=== PATIENT | male | born 1975 | race Caucasian/White ===

== ENCOUNTER 2019-09-08 21:21 | Emergency (ER) | payer SELFPAY ==
[~2019-09-08] VITALS: Ht 177.8 cm; Wt 81.6 kg
[2019-09-08 22:45] LABS: Basophils # (auto) 0 10 ^3/uL (0-0.2); Basophils % (auto) 0.6 % (0.0-2.0); Eosinophils # (auto) 0.2 10 ^3/uL (0-0.8); Eosinophils % (auto) 3.6 % (0.0-7.0); Hematocrit 38.2 % (41.0-53.0); Hemoglobin 12.9 g/dL (13.5-17.5); Lymphocytes # (auto) 2.5 10 ^3/uL (0.4-5.4); Lymphocytes % (auto) 42.6 % (10.0-50.0); Mean Corpuscular Hemoglobin 32.6 pg (28.0-32.0); Mean Corpuscular Hgb Conc. 33.7 g/dL (32.0-36.0); Mean Corpuscular Volume 96.9 fL (80.0-100.0); Monocytes # (auto) 0.7 10 ^3/uL (0-1.3); Neutrophils # (auto) 2.4 10 ^3/uL (1.6-8.6); Neutrophils % (auto) 41.2 % (37.0-80.0); Nucleated Red Blood Cells % 0.1 %; Platelet Count (auto) 226 10^3/uL (140-450); Red Blood Cells 3.94 10^6/uL (4.5-5.90); Red Cell Distribution Width 12.8 % (11.8-14.3); White Blood Cell 5.9 10^3/uL (4.4-10.8)
[2019-09-08 23:08] LABS: Albumin 2.9 g/dL (3.4-5.0); Potassium 3.8 mmol/L (3.5-5.1)
[2019-09-08 23:11] LABS: BUN/Creatinine Ratio 17.7; Bilirubin, Total 0.2 mg/dL (0.2-1.0); Total Protein 6.2 g/dL (6.4-8.2)
[2019-09-09] MEDS ORDERED: NALOXONE HCL 0.4 MG/ML VIAL IV ONE (01:15)
[2019-09-09 02:00] VITALS: BP 121/70
== END 2019-09-09 03:50 | disposition left against medical advice (07) ==
LOC: EDSEX 21:21 → EDBD 21:21 → ER 21:23
DX: R55 Syncope and collapse (principal); F15.10 Other stimulant abuse, uncomplicated; F17.200 Nicotine dependence, unspecified, uncomplicated
CPT/HCPCS: 36415; 36600; 71045; 80053; 80320; 82728; 82805; 83605; 84484; 85025; 87040; 87070; 87804; 87880; 96374; 99285; C9803; J2310; U0003

== ENCOUNTER 2024-03-14 12:44 | Inpatient (IN) | payer MEDICAID, OTHER ==
[~2024-03-14] VITALS: Ht 167.6 cm; Wt 65.0 kg
--- NOTE | 2024-03-14 13:07 | ED.PDOC ---
SOB-HPI HPI Comments 48 year old male RODDY presents to the ED with chief complaint of SOB. Patient reports that he has been experiencing SOB with associated cough for the past 3 weeks. Patient relays that he has a history of asthma and has used an inhaler with no relief noted. Patient denies any chest pain, fever, chills, dizziness, N/V, or hemoptysis. Chief Complaint: Shortness of Breath Time Seen by MD: 13:03 Primary Care Provider: UNKNOWN Reviewed notes: Nurses Notes, Medications, Allergies Information Source: Patient Mode of Arrival: EMS Severity: Moderate Timing: Weeks Duration: Since onset Context: At Rest PE Risk Factors: None History of: Asthma Prehospital treatment: Breathing Tx, Oxygen Modifying Factors: Nothing Associated Signs and Symptoms: Cough If cough with SOB: Productive, Yellow Past Medical History PAST MEDICAL HISTORY: Asthma Surgical History: Denies all surgeries Family History Family History: Reviewed,noncontributory to illness Social History Smoker: Greater Than 1 Pack/Day Alcohol: Denies ETOH Use Drugs: Methamphetamine Lives In: Home Constitutional: denies: chills, diaphoresis, fatigue, fever, malaise, sweats, weakness, others EENTM: denies: blurred vision, double vision, ear bleeding, ear discharge, ear drainage, ear pain, ear ringing, eye pain, eye redness, hearing loss, mouth pain, mouth swelling, nasal discharge, nose bleeding, nose congestion, nose pain, photophobia, tearing, throat pain, throat swelling, voice changes, others Respiratory: reports: cough, shortness of breath; denies: hemoptysis, orthopnea, SOB at rest, SOB with excertion, stridor, wheezing, others Cardiovascular: denies: chest pain, dizzy spells, diaphoresis, Dyspnea on exertion, edema, irregular heart beat, left arm pain, lightheadedness, palpitations, PND, syncope, others Gastrointestinal: denies: abdomen distended, abdominal pain, blood streaked bowels, constipated, diarrhea, dysphagia, difficulty swallowing, hematemesis, melena, nausea, poor appetite, poor fluid intake, rectal bleeding, rectal pain, vomiting, others Genitourinary: denies: burning, dysuria, flank pain, frequency, hematuria, incontinence, penile discharge, penile sore, pain, testicle pain, testicle swelling, urgency, others Neurological: denies: dizziness, fainting, headache, left sided numbness, left sided weakness, numbness, paresthesia, pre-existing deficit, right sided numbness, right sided weakness, seizure, speech problems, tingling, tremors, weakness, others Musculoskeletal: denies: back pain, gout, joint pain, joint swelling, muscle pain, muscle stiffness, neck pain, others Integumetry: denies: bruises, change in color, change in hair/nails, dryness, laceration, lesions, lumps, rash, wounds, others Allergic/Immunocompromised: denies: Difficulty Healing, Frequent Infections, Hives, Itching, others Hematologic/Lymphatic: denies: anemia, blood clots, easy bleeding, easy bruising, swollen glands, others Endocrine: denies: excessive hunger, excessive sweating, excessive thirst, excessive urination, flushing, intolerance to cold, intolerance to heat, unexplained weight gain, unexplained weight loss, others Psychiatric: denies: anxiety, bipolar disorder, depression, hopeless, panic disorder, schizophrenia, sleepless, suicidal, others All Other Systems: Reviewed and Negative Physical Exam General Appearance: Moderate Distress, Normal HEENT: Normal ENT Inspection, PERRL/EOMI Neck: Full Range of Motion, Non-Tender, Normal, Normal Inspection Respiratory: Accessory Muscle Use, Chest Non-Tender, Respiratory Distress, Wheezing Cardiovascular: No Edema, No JVD, No Murmur, No Gallop, Normal Peripheral Pulses, Regular Rate/Rhythm Breast Exam: Deferred Gastrointestinal: No Organomegaly, Non Tender, No Pulsatile Mass, Normal Bowel Sounds, Soft Genitalia: Deferred Pelvic: Deferred Rectal: Deferred Extremities: No calf tenderness, Normal capillary refill, Normal inspection, Normal range of motion, Non-tender, No pedal edema Musculoskeletal : Apperance: Normal Neurologic: Alert, internal audit consultant II-XII nml as Tested, No Motor Deficits, Normal Affect, Normal Mood, No Sensory Deficits Cerebellar Function: NOT DONE Reflexes: NOT DONE Skin: Dry, Normal Color, Warm Peripheral Pulses: 3+ Radial (R), 3+ Radial (L) Lymphatic: No Adenopathy Was a procedure done? Was a procedure done?: No Differential Dx Differential Diagnosis: Anxiety, Asthma, Bronchitis X-Ray, Labs, Meds, VS Vital Signs Date Time Temp Pulse Resp B/P (MAP) Pulse Ox O2 Delivery O2 Flow Rate FiO2 1/15/25 14:13 99 16 99 Nasal Cannula* 1 03/14/24 14:11 99 16 99 Room Air 03/14/24 14:11 98.3 99 16 101/80 (87) 99 98.3 03/14/24 13:47 100 03/14/24 13:46 18 99 Nasal Cannula* 1 03/14/24 13:46 99 Nasal Cannula* 03 2303/14/24 12:55 97.5 100 14 102/67 (79) 100 Lab Test 03/14/24 13:37 Range/Units White Blood Count 9.8 4.4-10.8 10^3/uL Red Blood Count 4.36 L 4.5-5.90 10^6/uL Hemoglobin 13.8 13.5-17.5 g/dL Hematocrit 42.5 41.0-53.0 % Mean Corpuscular Volume 97.5 80.0-100.0 fL Mean Corpuscular Hemoglobin 31.7 28.0-32.0 pg Mean Corpuscular Hemoglobin Concent 32.5 32.0-36.0 g/dL Red Cell Distribution Width 14.6 H 11.8-14.3 % Platelet Count 251 140-450 10^3/uL Mean Platelet Volume 7.9 6.9-10.8 fL Neutrophils (%) (Auto) 69.2 37.0-80.0 % Lymphocytes (%) (Auto) 16.4 10.0-50.0 % Monocytes (%) (Auto) 12.6 H 0.0-12.0 % Eosinophils (%) (Auto) 1.4 0.0-7.0 % Basophils (%) (Auto) 0.4 0.0-2.0 % Neutrophils # (Auto) 6.8 1.6-8.6 10 ^3/uL Lymphocytes # (Auto) 1.6 0.4-5.4 10 ^3/uL Monocytes # (Auto) 1.2 0-1.3 10 ^3/uL Eosinophils # (Auto) 0.1 0-0.8 10 ^3/uL Basophils # (Auto) 0 0-0.2 10 ^3/uL Nucleated Red Blood Cells 0.1 % Sodium Level 141 136-145 mmol/L Potassium Level 4.9 3.5-5.1 mmol/L Chloride Level 107 98-107 mmol/L Carbon Dioxide Level 30 20-31 mmol/L Anion Gap 4 L 5-15 Blood Urea Nitrogen 32 H 9-23 mg/dL Creatinine 1.46 H 0.700-1.30 mg/dL Glomerular Filtration Rate Calc 59 >90 mL/min BUN/Creatinine Ratio 21.9 H 10.0-20.0 Serum Glucose 87 74-106 mg/dL Calcium Level 9.5 8.7-10.4 mg/dL Troponin I High Sensitivity 59 *H </=54 ng/L B-Type Natriuretic Peptide 1345.55 0-100 pg/mL Current Medications Medications (Trade) Dose Ordered Sig/Wilder Route Start Time Stop Time Status Last Admin Methylprednisolone Sodium Succinate (Solu Medrol) 125 mg ONCE ONCE IV 03/14/24 13:15 03/14/24 13:16 DC 03/14/24 14:18 Albuterol (Ventolin Medneb) 5 mg ONCE ONCE NEB 03/14/24 13:15 03/14/24 13:16 DC 03/14/24 13:44 Ipratropium Barron (Atrovent Medneb) 0.5 mg ONCE ONCE NEB 03/14/24 13:15 03/14/24 13:16 DC 03/14/24 13:44 Patient alert. Complaining of shortness a breath. Vitals stable. Answering questions Was given breathing treatment. Was given steroid. Placed on oxygen. Unable to expand his lungs completely. Explained to the patient. Continue cardiac monitoring. Chest x-ray reviewed does not show any acute changes. BNP elevated. Was given Lasix pain Cardiac marker elevated. Was given Lovenox. Time of 1ST Reevaluation: 14:03 Reevaluation 1ST: Unchanged Patient Education/Counseling: Diagnosis, Treatment Family Education/Counseling: No Family Present Additional Information I reviewed the following notes from patient's past medical encounters: 09/08/19 f or Syncope The following tests were ordered, and results were reviewed by me: CXR Additional Information was gathered from interviewing the following independent historians: EMS I reviewed and agreed with the following test results read by other providers: CXR I discussed treatment and results with medical personnel. Departure 1 Departure Time of Disposition: 14:19 Impression: Primary Impression: Acute respiratory failure Qualified Codes: J96.01 - Acute respiratory failure with hypoxia Additional Impressions: Asthma exacerbation Qualified Codes: J45.41 - Moderate persistent asthma with (acute) exacerbation CHF (congestive heart failure) Qualified Codes: I50.43 - Acute on chronic combined systolic (congestive) and diastolic (congestive) heart failure Demand ischemia Disposition: ADMITTED INPATIENT Admit to: Med Surg Condition: Guarded Critical Care Note Critical Care Time?: Yes (45 min-critical care time only) Stability Stability form required: No Heart Score Heart Score: Heart Score Response (Comments) Value History N/A 0 EKG N/A 0 Age N/A 0 Risk Factors N/A 0 Troponin N/A 0 Total 0 I personally scribed for DEON COLEMAN MD ([email or web address]) on 03/14/24 at 13:06. Electronically submitted by Donald Moore ([email or web address]). DEON COLEMAN MD Mar 14, 2024 13:06
--- NOTE | 2024-03-14 13:24 | DVH ---
CHEST RADIOGRAPH Indication: sob Technique: Single frontal view of the chest was obtained Comparison: CHEST XRAY 1 VIEW on DOS: 09/09/19 FINDINGS: Lines and Tubes: None Lungs: No focal consolidation. Pleura: No effusion. No pneumothorax. Cardiomediastinal contours: Unremarkable Bones: No acute osseous abnormality. IMPRESSION: No acute cardiopulmonary disease.
[2024-03-14] MEDS: ALBUTEROL SULF 2.5 MG/0.5ML(0.5%) NEB SOLN NEB ONE (13:44)
[2024-03-14] MEDS: IPRATROPIUM BROM 0.5 MG/2.5ML INH SOL NEB ONE (13:44)
[2024-03-14 14:02] LABS: Basophils # (auto) 0 10 ^3/uL (0-0.2); Basophils % (auto) 0.4 % (0.0-2.0); Eosinophils # (auto) 0.1 10 ^3/uL (0-0.8); Eosinophils % (auto) 1.4 % (0.0-7.0); Hematocrit 42.5 % (41.0-53.0); Hemoglobin 13.8 g/dL (13.5-17.5); Lymphocytes # (auto) 1.6 10 ^3/uL (0.4-5.4); Lymphocytes % (auto) 16.4 % (10.0-50.0); Mean Corpuscular Hemoglobin 31.7 pg (28.0-32.0); Mean Corpuscular Hgb Conc. 32.5 g/dL (32.0-36.0); Mean Corpuscular Volume 97.5 fL (80.0-100.0); Monocytes # (auto) 1.2 10 ^3/uL (0-1.3); Monocytes % (auto) 12.6 % (0.0-12.0); Neutrophils # (auto) 6.8 10 ^3/uL (1.6-8.6); Neutrophils % (auto) 69.2 % (37.0-80.0); Nucleated Red Blood Cells % 0.1 %; Platelet Count (auto) 251 10^3/uL (140-450); Red Blood Cells 4.36 10^6/uL (4.5-5.90); Red Cell Distribution Width 14.6 % (11.8-14.3); White Blood Cell 9.8 10^3/uL (4.4-10.8)
[2024-03-14 14:11] LABS: Chloride 107 mmol/L (98-107); Potassium 4.9 mmol/L (3.5-5.1); Sodium 141 mmol/L (136-145)
[2024-03-14 14:12] LABS: Anion Gap 4 (5-15); Carbon Dioxide 30 mmol/L (20-31)
[2024-03-14 14:13] VITALS: PULSE 99; RESP 16; O2SAT 99
[2024-03-14 14:13] LABS: Calcium 9.5 mg/dL (8.7-10.4)
[2024-03-14 14:18] LABS: BUN/Creatinine Ratio 21.9 (10.0-20.0); Blood Urea Nitrogen 32 mg/dL (9-23); Glucose 87 mg/dL (74-106)
[2024-03-14] MEDS: methylPREDNISolone SOD SUCC 125 MG/2 ML VL IV ONE (14:18)
--- NOTE | 2024-03-14 14:31 | ECG ---
[facility] Test Date: 2024-03-14 Test Time: 13:47:44 Pat Name: LAQUITA CARROLL Department: er Room: 0297 Gender: M [employer] Install[employer]: darrell : 1975 Requested By: DEON COLEMAN Order Number: [id number] Reading MD: Mynor Mcmahon Measurements Intervals [place] Rate: 100 P: 72 AL: 151 QRS: 73 QRSD: 103 T: 252 QT: 372 QTc: 480 Interpretive Statements Sinus tachycardia Probable left atrial enlargement LVH with secondary repolarization abnormality Anterior ST elevation, probably due to LVH Borderline prolonged QT interval Electronically Signed On 03-18-2024 15:36:39 PST by Mynor Mcmahon Please click the below link to view image of tracing.
[2024-03-14] MEDS: ENOXAPARIN SOD 80 MG/0.8ML SYRINGE SC ONE (17:33)
[2024-03-14] MEDS: FUROSEMIDE 40 MG/4 ML VIAL IV ONE (17:33)
[2024-03-14] MEDS ORDERED: ONDANSETRON HCL 4 MG/2 ML VIAL IV PRN (18:15)
[2024-03-14] MEDS ORDERED: ACETAMINOPHEN 325 MG TAB PO PRN (18:15)
[2024-03-14] MEDS ORDERED: TEMAZEPAM 15 MG CAP PO PRN (18:15)
[2024-03-14 18:30] VITALS: O2SAT 97
[2024-03-14 19:20] VITALS: BP 103/73; PULSE 92; RESP 16; TEMP 98.3; O2SAT 98
[2024-03-14] MEDS: CARVEDILOL 3.125 MG TAB PO SCH (22:56)
[2024-03-14] MEDS: ATORVASTATIN 20 MG TAB PO SCH (22:57)
--- NOTE | 2024-03-14 23:15 | DVHHP2 ---
History of Present Illness Reason for Visit: Shortness of breath History of Present Illness 48-year-old male presents for evaluation of shortness for breath. Patient reports a three-week history of worsening shortness for breath with associated chest pressure. Denies abdominal or lower extremity swelling. States being severely short of breath with mild exertion. No other acute complaints reported. Past Medical History Asthma and congestive heart failure Past Surgical History Denies Family History Noncontributory Smoke: <1 pack per day ALCOHOL: none Drugs: Other (Methamphetamine) Review of Systems Review of Systems Review of systems are currently negative otherwise addressed in HPI. Allergies: Coded Allergies: NO KNOWN ALLERGIES (Unverified , 08/25/10) Medications Current Medications Medications Dose Ordered Sig/Wilder Route Start Time Stop Time Status Last Admin Dose Admin Carvedilol 3.125 mg Q12HR PO 03/14/24 22:00 Atorvastatin Calcium 10 mg HS PO 03/14/24 22:00 Aspirin 81 mg DAILY PO 03/15/24 10:00 Furosemide 40 mg DAILY PO 03/15/24 10:00 Albuterol 2.5 mg Q6HPRN PRN NEB 03/14/24 18:15 Temazepam 15 mg QHSP PRN PO 03/14/24 18:15 Ondansetron HCl 4 mg Q4HP PRN IV 03/14/24 18:15 Acetaminophen 650 mg Q6HP PRN PO 03/14/24 18:15 Exam Vital Signs Vital Signs Date Time Temp Pulse Resp B/P (MAP) Pulse Ox O2 Delivery O2 Flow Rate FiO2 03/14/24 22:57 94 16 116/66 (83) 98 03/14/24 19:20 98.3 1.0 24 98.3 03/14/24 18:30 Room Air* Exam Gen: 48-year-old male in mild distress Skin: Warm, dry, normal color and texture, no rash. HEENT: Normocephalic atraumatic, mucous membranes moist and pink. Neck: Cervical and supraclavicular nodes normal without enlargement, trachea is midline, thyroid gland is normal without masses. Pulmonary: Clear to auscultation and percussion bilaterally. Cardiac: Regular rate and rhythm. No murmur Abdomen: Soft, nontender, nondistended, bowel sounds present all 4 quadrants, no guarding, no rigidity, no organomegaly. Extremities: No cyanosis, clubbing, no edema Neuro: Cranial nerves II through XII grossly intact, normal affect and speech, no focal motor deficits. Labs/Xrays ORDERING PHYSICIAN: DEON COLEMAN MD PROCEDURE(s): CXRP - CHEST PORTABLE REASON: sob ORDER NUMBER(s): [id number], ACCESSION NUMBER(s): [id number] CHEST RADIOGRAPH Indication: sob Technique: Single frontal view of the chest was obtained Comparison: CHEST XRAY 1 VIEW on DOS: 09/09/19 FINDINGS: Lines and Tubes: None Lungs: No focal consolidation. Pleura: No effusion. No pneumothorax. Cardiomediastinal contours: Unremarkable Bones: No acute osseous abnormality. IMPRESSION: No acute cardiopulmonary disease. Labs Test 03/14/24 20:56 03/14/24 13:37 Range/Units Troponin I High Sensitivity 36 </=54 ng/L White Blood Count 9.8 4.4-10.8 10^3/uL Red Blood Count 4.36 L 4.5-5.90 10^6/uL Hemoglobin 13.8 13.5-17.5 g/dL Hematocrit 42.5 41.0-53.0 % Mean Corpuscular Volume 97.5 80.0-100.0 fL Mean Corpuscular Hemoglobin 31.7 28.0-32.0 pg Mean Corpuscular Hemoglobin Concent 32.5 32.0-36.0 g/dL Red Cell Distribution Width 14.6 H 11.8-14.3 % Platelet Count 251 140-450 10^3/uL Mean Platelet Volume 7.9 6.9-10.8 fL Neutrophils (%) (Auto) 69.2 37.0-80.0 % Lymphocytes (%) (Auto) 16.4 10.0-50.0 % Monocytes (%) (Auto) 12.6 H 0.0-12.0 % Eosinophils (%) (Auto) 1.4 0.0-7.0 % Basophils (%) (Auto) 0.4 0.0-2.0 % Neutrophils # (Auto) 6.8 1.6-8.6 10 ^3/uL Lymphocytes # (Auto) 1.6 0.4-5.4 10 ^3/uL Monocytes # (Auto) 1.2 0-1.3 10 ^3/uL Eosinophils # (Auto) 0.1 0-0.8 10 ^3/uL Basophils # (Auto) 0 0-0.2 10 ^3/uL Nucleated Red Blood Cells 0.1 % Sodium Level 141 136-145 mmol/L Potassium Level 4.9 3.5-5.1 mmol/L Chloride Level 107 98-107 mmol/L Carbon Dioxide Level 30 20-31 mmol/L Anion Gap 4 L 5-15 Blood Urea Nitrogen 32 H 9-23 mg/dL Creatinine 1.46 H 0.700-1.30 mg/dL Glomerular Filtration Rate Calc 59 >90 mL/min BUN/Creatinine Ratio 21.9 H 10.0-20.0 Serum Glucose 87 74-106 mg/dL Calcium Level 9.5 8.7-10.4 mg/dL B-Type Natriuretic Peptide 1345.55 0-100 pg/mL Assessment/Plan Assessment/Plan Assessment Acute on chronic respiratory failure CHF exacerbation Asthma Elevated troponin, possible demand ischemia Plan Admit the patient to Med [facility] [place] to the hospitalist Echocardiogram pending Resume home medications Continue treatment per orders. Plan discussed with: Patient My Orders Orders - DILIA SMITH AGACNP Procedure Category Date Status Time Carvedilol Tablet PHA 03/14/24 In Process (Coreg Tablet) 22:00 Atorvastatin (Lipitor) PHA 03/14/24 In Process 22:00 Aspirin Tablet PHA 03/15/24 In Process 10:00 Furosemide Tablet PHA 03/15/24 In Process (Lasix Tablet) 10:00 * Cardiology Consult CONS 03/14/24 Transmitted 18:12 Albuterol Medneb PHA 03/14/24 In Process (Ventolin Medneb) 18:15 Basic Metabolic Panel LAB 03/15/24 Logged 04:00 Admit ADMIT 03/14/24 Transmitted 18:12 Temazepam (Restoril) PHA 03/14/24 In Process 18:15 Ondansetron Hcl PHA 03/14/24 In Process (Zofran) 18:15 Cardiac DIET 03/14/24 Transmitted Diet-2gna,Lofat,Lochol Dinner Echo 2d Mode Cardiac US 03/14/24 Logged DOP 18:12 Condition: Fair CALEB 03/14/24 In Process 18:12 Acetaminophen Tablet PHA 03/14/24 In Process (Tylenol Tablet) 18:15 Bedrest With Bathroom CALEB 03/14/24 In Process Privileg 18:12 Date of Service: Mar 14, 2024 Billing Provider: DILIA SMITH Common Visit Codes: [id number] INP/OBS CARE (HIGH) DILIA SMITH Mar 14, 2024 23:15
[2024-03-15] VITALS (12 sets, daily range): BP systolic 102–106; BP diastolic 66–76; PULSE 80–106; RESP 16–20; TEMP 97.5–97.9; O2SAT 95–100
[2024-03-15] MEDS: ALBUTEROL SULF 2.5 MG/0.5ML(0.5%) NEB SOLN NEB PRN (00:46)
[2024-03-15 06:37] LABS: Anion Gap 9 (5-15); Carbon Dioxide 24 mmol/L (20-31); Chloride 106 mmol/L (98-107); Potassium 4.3 mmol/L (3.5-5.1); Sodium 139 mmol/L (136-145)
[2024-03-15 06:38] LABS: Calcium 9.5 mg/dL (8.7-10.4)
[2024-03-15 06:43] LABS: BUN/Creatinine Ratio 22.8 (10.0-20.0)
[2024-03-15 06:44] LABS: Blood Urea Nitrogen 31 mg/dL (9-23); Glucose 136 mg/dL (74-106)
[2024-03-15] MEDS: ASPirin 81 mg TAB PO SCH (09:21)
[2024-03-15] MEDS: FUROSEMIDE 40 MG TAB PO SCH (09:21)
[2024-03-15 12:23] LABS: Rapid Influenza A Negative (Negative); Rapid Influenza B Negative (Negative)
[2024-03-15 12:24] LABS: COVID19 ANTIGEN SOFIA FIA NEGATIVE (NEGATIVE)
[2024-03-15 13:07] LABS: Amphetamine Screen, Urine Pos (NEGATIVE); Barbiturate Scree,Urine Neg (NEGATIVE); Benzodiazephine Screen, Urine Neg (NEGATIVE); Cocaine Screen, Urine Neg (NEGATIVE); Opiate Scree,Urine Neg (NEGATIVE)
[2024-03-15 13:08] LABS: Cannabinoid Screen, Urine Neg (NEGATIVE); Phencyclidine Screen, Urine Neg (NEGATIVE)
[2024-03-15 14:02] LABS: Basophils # (auto) 0 10 ^3/uL (0-0.2); Basophils % (auto) 0.2 % (0.0-2.0); Eosinophils # (auto) 0 10 ^3/uL (0-0.8); Eosinophils % (auto) 0.1 % (0.0-7.0); Hematocrit 40.1 % (41.0-53.0); Lymphocytes # (auto) 1.8 10 ^3/uL (0.4-5.4); Mean Corpuscular Hemoglobin 31.6 pg (28.0-32.0); Mean Corpuscular Hgb Conc. 32.6 g/dL (32.0-36.0); Mean Corpuscular Volume 97.1 fL (80.0-100.0); Monocytes % (auto) 4.6 % (0.0-12.0); Neutrophils # (auto) 19.7 10 ^3/uL (1.6-8.6); Neutrophils % (auto) 87.1 % (37.0-80.0); Platelet Count (auto) 250 10^3/uL (140-450); Red Blood Cells 4.13 10^6/uL (4.5-5.90); White Blood Cell 22.6 10^3/uL (4.4-10.8)
--- NOTE | 2024-03-15 14:07 | DVHINCON2 ---
Date Seen: Mar 15, 2024 Referring Physician GIOVANI Montgomery Reason for Consultation CHF History of Present Illness This is a 48-year-old man who presented to the emergency room with a chief complaint of shortness of breath for one week. The patient complains of progressive shortness of breath associated with PND, MIRANDA, and bilateral lower extremity edema. Denies chest pain. He underwent a 12 lead electrocardiogram revealing a sinus rhythm with global T-wave inversion and suggestive of left ventricular hypertrophy. Troponin level peaked at 59 ng/L. Per patient, he was diagnosed with congestive heart failure approximately two years ago at [facility] undergoing a transthoracic echocardiogram revealing an EF of approximately 20% and undergoing a cardiac catheterization without catheter based intervention given no coronary artery disease. Somehow the patient has failed to continue to follow up with Cardiology. States he is on bisoprolol and Lasix therapy at home. Significant medical history includes congestive heart failure, hypertension, asthma, tobacco and methamphetamine use. Past Medical History Past medical history reviewed. No other significant than mentioned above. Past Surgical History Past Surgical history reviewed. No other significant than mentioned above. Family History: Asthma G8 MOTHER Cerebrovascular accident (CVA) G8 FATHER FH: heart attack G8 FATHER Family History Family history reviewed. Social History Denies the use of alcohol. Admits to tobacco and methamphetamine use. Smokes one pack of cigarettes per day. Allergies: Coded Allergies: NO KNOWN ALLERGIES (Unverified , 08/25/10) Home Meds Home medications reviewed. Current Medications Current Medications Medications (Trade) Dose Ordered Sig/Wilder Route PRN Reason Start Time Stop Time Status Last Admin Carvedilol (Coreg Tablet) 3.125 mg Q12HR PO 03/14/24 22:00 03/15/24 09:22 Atorvastatin Calcium (Lipitor) 10 mg HS PO 03/14/24 22:00 Aspirin 81 mg DAILY PO 03/15/24 10:00 03/15/24 09:21 Furosemide (Lasix Tablet) 40 mg DAILY PO 03/15/24 10:00 03/15/24 09:21 Albuterol (Ventolin Medneb) 2.5 mg Q6HPRN PRN NEB SHORTNESS OF BREATH 03/14/24 18:15 03/15/24 09:20 Temazepam (Restoril) 15 mg QHSP PRN PO FOR INSOMNIA 03/14/24 18:15 Ondansetron HCl (Zofran) 4 mg Q4HP PRN IV NAUSEA / VOMITING 03/14/24 18:15 Acetaminophen (Tylenol Tablet) 650 mg Q6HP PRN PO PAIN SCALE 1-3 OR TEMP>100.4 03/14/24 18:15 Azithromycin 250 ml @ 125 mls/hr DAILY IV 03/16/24 10:00 Ceftriaxone Sodium 50 ml @ 100 mls/hr DAILY@09 IV 03/16/24 09:00 Review of Systems Constitutional: No symptom reported Ears, Nose, & Throat: No symptom reported Eyes: No symptom reported Neurological: No symptoms reported Pulmonary/Respiratory: SOB, MIRANDA, PND Cardiovascular: BLE edema Gastrointestinal: No symptom reported Genitourinary: No symptom reported Musculoskeletal: No symptom reported Skin: No symptom reported Psychiatric: No symptom reported Endocrine: No symptom reported Hemotologic/Lymphatic: No symptom reported Vital Signs Vital Signs Date Time Temp Pulse Resp B/P (MAP) Pulse Ox O2 Delivery O2 Flow Rate FiO2 03/15/24 10:22 82 111/74 03/15/24 09:26 18 98 03/15/24 09:20 Room Air 0.0 03/15/24 09:20 21 03/15/24 08:18 97.5 97.5 Physical Exam General Appearance: Cooperative. Well developed. Well nourished. In no acute distress Head Exam: Normal inspection Neck Exam: Normal inspection. Non-tender. Normal alignment Pulmonary/Respiratory: Chest non-tender. Crackles to bilateral breath sounds Cardiovascular/Chest: Regular rate and rhythm. S1, S2. Global T wave inversion. LVH. No murmurs. +JVD + JVD. Peripheral Pulses: 2+ Radial (R). 2+ Radial (L). 2+ Pedal (R). 2+ Pedal (L) Abdominal Exam: Normal bowel sounds. Soft. Nontender. No hepatospenomegaly. No masses Ankle Exam: Positive ankle edema, 2+ Lower extremities: Positive lower extremity edema, 2+ Neuro/Mental Status: A&O x4. Coherent Thoughts/Psych: Normal thought pattern. Appropriate mood and affect. Good judgement and insight Appearance: In no acute distress Skin Exam: Normal inspection. Normal color. Warm. Dry Labs/Diagnostic Data Labs Test 03/15/24 12:23 03/15/24 10:33 03/15/24 04:49 03/14/24 20:56 Range/Units Urine Opiates Screen Neg NEGATIVE Urine Fentanyl Screen Neg NEGATIVE Urine Barbiturates Screen Neg NEGATIVE Urine Phencyclidine Screen Neg NEGATIVE Urine Amphetamines Screen Pos NEGATIVE Urine Benzodiazepines Screen Neg NEGATIVE Urine Cocaine Screen Neg NEGATIVE Urine Cannabinoids Screen Neg NEGATIVE Influenza Type A Antigen Negative Negative Influenza Type B Antigen Negative Negative SARS-CoV-2 Antigen (Rapid) Negative NEGATIVE Sodium Level 139 136-145 mmol/L Potassium Level 4.3 3.5-5.1 mmol/L Chloride Level 106 98-107 mmol/L Carbon Dioxide Level 24 20-31 mmol/L Anion Gap 9 5-15 Blood Urea Nitrogen 31 H 9-23 mg/dL Creatinine 1.36 H 0.700-1.30 mg/dL Glomerular Filtration Rate Calc 65 >90 mL/min BUN/Creatinine Ratio 22.8 H 10.0-20.0 Serum Glucose 136 H 74-106 mg/dL Hemoglobin A1c 5.9 H <5.7 % A1C Calcium Level 9.5 8.7-10.4 mg/dL Troponin I High Sensitivity 36 </=54 ng/L Test 03/14/24 13:37 Range/Units White Blood Count 9.8 4.4-10.8 10^3/uL Red Blood Count 4.36 L 4.5-5.90 10^6/uL Hemoglobin 13.8 13.5-17.5 g/dL Hematocrit 42.5 41.0-53.0 % Mean Corpuscular Volume 97.5 80.0-100.0 fL Mean Corpuscular Hemoglobin 31.7 28.0-32.0 pg Mean Corpuscular Hemoglobin Concent 32.5 32.0-36.0 g/dL Red Cell Distribution Width 14.6 H 11.8-14.3 % Platelet Count 251 140-450 10^3/uL Mean Platelet Volume 7.9 6.9-10.8 fL Neutrophils (%) (Auto) 69.2 37.0-80.0 % Lymphocytes (%) (Auto) 16.4 10.0-50.0 % Monocytes (%) (Auto) 12.6 H 0.0-12.0 % Eosinophils (%) (Auto) 1.4 0.0-7.0 % Basophils (%) (Auto) 0.4 0.0-2.0 % Neutrophils # (Auto) 6.8 1.6-8.6 10 ^3/uL Lymphocytes # (Auto) 1.6 0.4-5.4 10 ^3/uL Monocytes # (Auto) 1.2 0-1.3 10 ^3/uL Eosinophils # (Auto) 0.1 0-0.8 10 ^3/uL Basophils # (Auto) 0 0-0.2 10 ^3/uL Nucleated Red Blood Cells 0.1 % B-Type Natriuretic Peptide 1345.55 0-100 pg/mL Assessment Acute on chronic decompensated HFrEF, NYHA Class III NSTEMI type 2 secondary to above Nonischemic/drug-induced cardiomyopathy Likely JATIN on CKD Methamphetamine/tobacco use Plan/Recommendation (Dr. Morris) The patient presents with an acute exacerbation of congestive heart failure. Transthoracic echocardiogram pending at this time. In the meantime, continue GDMT for CHF and up titrate as tolerated. Preload and afterload reduction, strict I&Os, daily weight, maintain fluid restrictions. Risk factor modifications including medical compliance and methamphetamines not/tobacco cessation. Monitor ECG changes and notify. Follow-up with a primary shift nurse manager within 3-4 weeks post discharge. Thank you for allowing us to participate in this patient's care. Please call if you have any questions or concerns. This medical document was created using an electronic medical record system with voice recognition software and computerized dictation system. Although this document has been carefully reviewed, there might still be some phonetic and t ypographical errors. Occasional wrong-word or ``sound-alike substitutions may have occurred due to the inherent limitations of voice recognition software. These areas are purely typographical due to imperfections of the software programs and do not reflect any compromise in the patient's medical care. Please read the chart carefully and recognize, using context, where these solo bstitutions have occurred. Plan discussed with: Patient, Other NYHA Physical activity limitations: Class3(Marked) ordinary (activity causes symtoms) Date of Service: Mar 15, 2024 Billing Provider: AMISH MORRIS MD Cardiology Common Codes: [id number] INP/OBS CARE (High) LUANAMARTHA [facility] Mar 15, 2024 14:07
[2024-03-15 14:18] LABS: Alanine Aminotransferase 24 U/L (7-40); Albumin 3.8 g/dL (3.2-4.8); Anion Gap 9 (5-15); Aspartate Aminotransferase 16 U/L (13-40); BUN/Creatinine Ratio 20.7 (10.0-20.0); Bilirubin, Total 0.6 mg/dL (0.2-1.0); Calcium 9.4 mg/dL (8.7-10.4); Carbon Dioxide 23 mmol/L (20-31); Chloride 105 mmol/L (98-107); Potassium 4.4 mmol/L (3.5-5.1); Sodium 137 mmol/L (136-145); Total Protein 6.8 g/dL (5.7-8.2)
[2024-03-15 14:19] LABS: Alkaline Phosphatase 133 U/L (46-116); Blood Urea Nitrogen 29 mg/dL (9-23); Glucose 151 mg/dL (74-106)
[2024-03-15] MEDS: cefTRIAXone 1GM/50ML D5W 50 ML IV ONE (15:29)
[2024-03-15] MEDS: FUROSEMIDE 20 MG/2 ML VIAL IV ONE (15:43)
--- NOTE | 2024-03-15 15:53 | DVHINCON2 ---
Date of service: Mar 15, 2024 Reason for Consultation Acute kidney injury History of Present Illness 48-year-old male with past medical history of polysubstance abuse presents to the hospital complaining of shortness of breath and leg swelling. He has a history of congestive heart failure as well. He was lost follow-up according to Cardiology. Nephrology consulted due to elevated creatinine level. Based on last hospitalization his renal function was considered normal. Allergies: Coded Allergies: NO KNOWN ALLERGIES (Unverified , 08/25/10) Current Medications Current Medications Medications (Trade) Dose Ordered Sig/Wilder Route PRN Reason Start Time Stop Time Status Last Admin Carvedilol (Coreg Tablet) 3.125 mg Q12HR PO 03/14/24 22:00 03/15/24 09:22 Atorvastatin Calcium (Lipitor) 10 mg HS PO 03/14/24 22:00 Aspirin 81 mg DAILY PO 03/15/24 10:00 03/15/24 09:21 Furosemide (Lasix Tablet) 40 mg DAILY PO 03/15/24 10:00 03/15/24 09:21 Albuterol (Ventolin Medneb) 2.5 mg Q6HPRN PRN NEB SHORTNESS OF BREATH 03/14/24 18:15 03/15/24 09:20 Temazepam (Restoril) 15 mg QHSP PRN PO FOR INSOMNIA 03/14/24 18:15 Ondansetron HCl (Zofran) 4 mg Q4HP PRN IV NAUSEA / VOMITING 03/14/24 18:15 Acetaminophen (Tylenol Tablet) 650 mg Q6HP PRN PO PAIN SCALE 1-3 OR TEMP>100.4 03/14/24 18:15 Azithromycin 250 ml @ 125 mls/hr DAILY IV 03/16/24 10:00 Ceftriaxone Sodium 50 ml @ 100 mls/hr DAILY@09 IV 03/16/24 09:00 Furosemide (Lasix Injection) 40 mg BIDD IV 03/15/24 18:00 Sacubitril/ Valsartan (Entresto 24-26 Mg tab) 1 tab BID PO 03/15/24 22:00 Empaglifozin (Jardiance) 10 mg DAILY PO 03/16/24 10:00 Spironolactone (Aldactone) 12.5 mg DAILY PO 03/16/24 10:00 Family History: Asthma G8 MOTHER Cerebrovascular accident (CVA) G8 FATHER FH: heart attack G8 FATHER Review of Systems Shortness of breath and leg swelling H&P Exam Vital Signs/I&O Vital Sign Date Time Temp Pulse Resp B/P (MAP) Pulse Ox O2 Delivery O2 Flow Rate FiO2 03/15/24 15:43 113/80 03/15/24 13:35 97.9 80 18 96 97.9 03/15/24 09:20 Room Air 0.0 03/15/24 09:20 21 Physical Exam Middle-aged male Non overt distress Abdomen is soft Bilateral ankle edema Labs/Diagnostic Data Labs/Diagnostic Data Laboratory Tests Test 03/15/24 13:35 03/15/24 12:23 03/15/24 10:33 03/15/24 04:49 Range/Units White Blood Count 22.6 #H 4.4-10.8 10^3/uL Red Blood Count 4.13 L 4.5-5.90 10^6/uL Hemoglobin 13.0 L 13.5-17.5 g/dL Hematocrit 40.1 L 41.0-53.0 % Mean Corpuscular Volume 97.1 80.0-100.0 fL Mean Corpuscular Hemoglobin 31.6 28.0-32.0 pg Mean Corpuscular Hemoglobin Concent 32.6 32.0-36.0 g/dL Red Cell Distribution Width 15.0 H 11.8-14.3 % Platelet Count 250 140-450 10^3/uL Mean Platelet Volume 8.1 6.9-10.8 fL Neutrophils (%) (Auto) 87.1 H 37.0-80.0 % Lymphocytes (%) (Auto) 8.0 L 10.0-50.0 % Monocytes (%) (Auto) 4.6 0.0-12.0 % Eosinophils (%) (Auto) 0.1 0.0-7.0 % Basophils (%) (Auto) 0.2 0.0-2.0 % Neutrophils # (Auto) 19.7 H 1.6-8.6 10 ^3/uL Lymphocytes # (Auto) 1.8 0.4-5.4 10 ^3/uL Monocytes # (Auto) 1.0 0-1.3 10 ^3/uL Eosinophils # (Auto) 0 0-0.8 10 ^3/uL Basophils # (Auto) 0 0-0.2 10 ^3/uL Nucleated Red Blood Cells 0.0 % Sodium Level 137 139 136-145 mmol/L Potassium Level 4.4 4.3 3.5-5.1 mmol/L Chloride Level 105 106 98-107 mmol/L Carbon Dioxide Level 23 24 20-31 mmol/L Anion Gap 9 9 5-15 Blood Urea Nitrogen 29 H 31 H 9-23 mg/dL Creatinine 1.40 H 1.36 H 0.700-1.30 mg/dL Glomerular Filtration Rate Calc 62 65 >90 mL/min BUN/Creatinine Ratio 20.7 H 22.8 H 10.0-20.0 Serum Glucose 151 H 136 H 74-106 mg/dL Calcium Level 9.4 9.5 8.7-10.4 mg/dL Total Bilirubin 0.6 0.2-1.0 mg/dL Aspartate Amino Transferase (AST) 16 13-40 U/L Alanine Aminotransferase (ALT) 24 7-40 U/L Alkaline Phosphatase 133 H 46-116 U/L Total Protein 6.8 5.7-8.2 g/dL Albumin 3.8 3.2-4.8 g/dL Urine Opiates Screen Neg NEGATIVE Urine Fentanyl Screen Neg NEGATIVE Urine Barbiturates Screen Neg NEGATIVE Urine Phencyclidine Screen Neg NEGATIVE Urine Amphetamines Screen Pos NEGATIVE Urine Benzodiazepines Screen Neg NEGATIVE Urine Cocaine Screen Neg NEGATIVE Urine Cannabinoids Screen Neg NEGATIVE Influenza Type A Antigen Negative Negative Influenza Type B Antigen Negative Negative SARS-CoV-2 Antigen (Rapid) Negative NEGATIVE Hemoglobin A1c 5.9 H <5.7 % A1C Test 03/14/24 20:56 03/14/24 19:00 03/14/24 13:37 Range/Units Troponin I High Sensitivity 36 42 59 *H </=54 ng/L White Blood Count 9.8 4.4-10.8 10^3/uL Red Blood Count 4.36 L 4.5-5.90 10^6/uL Hemoglobin 13.8 13.5-17.5 g/dL Hematocrit 42.5 41.0-53.0 % Mean Corpuscular Volume 97.5 80.0-100.0 fL Mean Corpuscular Hemoglobin 31.7 28.0-32.0 pg Mean Corpuscular Hemoglobin Concent 32.5 32.0-36.0 g/dL Red Cell Distribution Width 14.6 H 11.8-14.3 % Platelet Count 251 140-450 10^3/uL Mean Platelet Volume 7.9 6.9-10.8 fL Neutrophils (%) (Auto) 69.2 37.0-80.0 % Lymphocytes (%) (Auto) 16.4 10.0-50.0 % Monocytes (%) (Auto) 12.6 H 0.0-12.0 % Eosinophils (%) (Auto) 1.4 0.0-7.0 % Basophils (%) (Auto) 0.4 0.0-2.0 % Neutrophils # (Auto) 6.8 1.6-8.6 10 ^3/uL Lymphocytes # (Auto) 1.6 0.4-5.4 10 ^3/uL Monocytes # (Auto) 1.2 0-1.3 10 ^3/uL Eosinophils # (Auto) 0.1 0-0.8 10 ^3/uL Basophils # (Auto) 0 0-0.2 10 ^3/uL Nucleated Red Blood Cells 0.1 % Sodium Level 141 136-145 mmol/L Potassium Level 4.9 3.5-5.1 mmol/L Chloride Level 107 98-107 mmol/L Carbon Dioxide Level 30 20-31 mmol/L Anion Gap 4 L 5-15 Blood Urea Nitrogen 32 H 9-23 mg/dL Creatinine 1.46 H 0.700-1.30 mg/dL Glomerular Filtration Rate Calc 59 >90 mL/min BUN/Creatinine Ratio 21.9 H 10.0-20.0 Serum Glucose 87 74-106 mg/dL Calcium Level 9.5 8.7-10.4 mg/dL B-Type Natriuretic Peptide 1345.55 0-100 pg/mL Assessment Acute kidney injury hemodynamically mediated in setting of decompensated heart failure Chronic kidney disease baseline is unknown last known GFR in 2020 was consistent with stage II Systolic decompensated heart failure ejection fraction 20% as per Cardiology from [place] two years ago Acute methamphetamine abuse Cardiology on the case managing patient's cardiac medications Avoid hypotension. Patient was started on Entresto Diuretic therapy recommend obtaining daily negative balance We will require strict Is&Os for this Increase diuretics as tolerated to achieve adequate fluid removal If patient's blood pressure is low then recommend ionotropic. Do not cancel diuretics for low blood pressure Plan discussed with: Patient NATA WHITE MD Mar 15, 2024 15:53
[2024-03-15] MEDS: AZITHROMYCIN 500MG/ 250ML 250 ML IV ONE (16:26)
[2024-03-15 16:57] LABS: Urine Bacteria None Seen /hpf (None Seen)
[2024-03-15 17:06] LABS: Urine Blood Negative /uL (Negative); Urine Clarity Clear (Clear); Urine Color Light-Yellow (Yellow); Urine Hyaline Cast FEW /lpf (0 - 2); Urine Protein, UAD Negative (Negative); Urine Specific Gravity 1.013 (1.001-1.035); Urine Squamous Epithelial Cell FEW /hpf (<5); Urine Urobilinogen Normal (Negative); Urine WBC 1 /hpf (0 - 3)
[2024-03-15] MEDS: FUROSEMIDE 40 MG/4 ML VIAL IV SCH (18:00)
--- NOTE | 2024-03-15 18:53 | DVHPNRES ---
Progress Note Date Seen: Mar 15, 2024 Resident Creating Document: RICHARDSON FAGAN RESIDENT Has the PT tested + for MRSA If YES, has PT been informed?: No Medical Necessity Reason Pt with a Central, PICC or Fol: No Medical Necessity Reason shortness of breath Congestive heart failure Subjective Review of Systems This is a 48-year-old past medical history of congestive heart failure, hypertension, asthma, tobacco and methamphetamine use who presented to the ED with a chief complaint of shortness of breath for one week, cough with yellowish sputum production for 3 weeks. The patient complains of progressive shortness of breath associated with PND, MIRANDA, and bilateral lower extremity edema. Patient denied any chest pain, fever, chills, nausea or vomiting. Denies any sick contact. Given his history of congestive heart failure which was diagnosed 2 years ago, patient came to the ED for further management. In the ED, initial vitals were Temp 98.3, HR: 98, RR:16 pulse oximetry of 98 on room air. Lab values showed WBC 9.8--> 20-22.6. HGB: 13, Cr: 1.46 ( baseline 1.13 2 years ago), BNP up0049 Troponin level peaked at 59 ng/L. Twelve lead ekg revealed a sinus rhythm with global T-wave inversion and suggestive of left ventricular hypertrophy. Of note, per patient, he was diagnosed with congestive heart failure approximately two years ago at [facility]. He had transthoracic echocardiogram with an EF of approximately 20% and undergoing a cardiac catheterization without catheter based intervention given no coronary artery disease. Patient failed to follow up with Cardiology,but stated that he is currently on bisoprolol and Lasix therapy at home. ROS Constitutional: Denies fever, chills no feeling of malaise HEENT: Denies headache, ear pain, ear discharges, conjunctivitis, nasal discharge throat pain Cardiovascular: Denies chest pain; has palpitation, orthopnea, PND, or pedal edema Respiratory: Denies shortness of breath, cough cough, sputum production, hemoptysis, GI: Denies abdominal pain, nausea, vomiting, diarrhea, hematemesis, hematochezia, : Denies frequency, urgency, hematuria, Endocrine: Denies unintentional weight gain or weight loss, feeling of hot flashes, William: Denies easy bruising, bleeding disorders, epistaxis Musculoskeletal: Denies joint pains, muscle aches Psych: No evidence of depression, ani, suicidal ideation Objective vital signs Vital Sign Date Time Temp Pulse Resp B/P (MAP) Pulse Ox O2 Delivery O2 Flow Rate FiO2 03/15/24 16:37 97.6 105 16 102/74 (83) 97 97.6 03/15/24 09:20 Room Air 0.0 03/15/24 09:20 21 medications Current Medications Medications Dose Ordered Sig/Wilder Route Start Time Stop Time Status Last Admin Dose Admin Carvedilol 3.125 mg Q12HR PO 03/14/24 22:00 03/15/24 09:22 3.125 MG Atorvastatin Calcium 10 mg HS PO 03/14/24 22:00 Aspirin 81 mg DAILY PO 03/15/24 10:00 03/15/24 09:21 81 MG Furosemide 40 mg DAILY PO 03/15/24 10:00 03/15/24 09:21 40 MG Albuterol 2.5 mg Q6HPRN PRN NEB 03/14/24 18:15 03/15/24 09:20 2.5 MG Temazepam 15 mg QHSP PRN PO 03/14/24 18:15 Ondansetron HCl 4 mg Q4HP PRN IV 03/14/24 18:15 Acetaminophen 650 mg Q6HP PRN PO 03/14/24 18:15 Azithromycin 250 ml @ 125 mls/hr DAILY IV 03/16/24 10:00 Ceftriaxone Sodium 50 ml @ 100 mls/hr DAILY@09 IV 03/16/24 09:00 Furosemide 40 mg BIDD IV 03/15/24 18:00 Sacubitril/ Valsartan 1 tab BID PO 03/15/24 22:00 Empaglifozin 10 mg DAILY PO 03/16/24 10:00 Spironolactone 12.5 mg DAILY PO 03/16/24 10:00 Examination General Appearance: Alert, Oriented X3, Cooperative, No acute distress HEENT: Atraumatic, PERRLA, EOMI, Mucous membrane moist/pink Respiratory: Clear to auscultation, Normal air movement Cardiovascular: Point of maximal impulse displaced, regular rate, Normal S1, Normal S2, No murmurs, no chest wall tenderness Abdominal: NO distention, no tenderness, bowel sounds present, no scars noted Extremities: No clubbing, No cyanosis, Bilateral Pitting VITALIY Skin: No rashes, No breakdown, No significant lesion Neuro: Normal gait, Normal speech, Strength at 5/5 X4 ext, Normal tone, Sensation intact, Cranial nerves 3-12 NL, Reflexes 2+ Psych/Mental Status: Mental status NL, Mood NL laboratory and microbiology Laboratory Tests 03/15/24 13:35 Test 03/15/24 13:35 Range/Units Serum Glucose 151 H 74-106 mg/dL Problem List/Assessment/Plan Problem List/Assessment/Plan Assessment Hypertensive heart disease Acute on chronic decompensated HFrEF Likely pneumonia Hypertension Asthma Cardiomegaly on chest x-ray prediabetic tobacco use,37 pack years methamphetamine use Acute kidney injury on CKD ( Baseline cr:2021) Acute methamphetamine abuse Plan Echo, pending report furosemide 40mg bid Initiate GDMT as can tolerate Strict I &O Daily weight check Atorvastatin Antibiotic (Azithromycin and Ceftriaxone) Nephrology consult Recommended to follow up with the tobacco buyer post discharge Ipratropium/albuterol prn Code status: Full code Goal of care discussed for more than 45 minutes Case and plan discussed with Dr. Be Plan discussed with: Patient My Orders My Orders Orders - RIHCARDSON FAGAN Procedure Category Date Status Time Azithromycin 500mg/ PHA 03/16/24 In Process 250ml (Zithromax 50 10:00 Ceftriaxone 1gm/50ml PHA 03/16/24 In Process D5w (Rocephin) 09:00 *Dr. [facility] CONS 03/15/24 Transmitted -[facility] [place] 12:43 Date of Service: Mar 15, 2024 Billing Provider: TOSHA BE MD Common Visit Codes: [id number] INP/OBS CARE([facility]) RICHARDSON FAGAN Mar 15, 2024 18:53 TOSHA BE MD Mar 15, 2024 21:23
[2024-03-15] MEDS ORDERED: ALBUTEROL SULF 2.5 MG/0.5ML(0.5%) NEB SOLN NEB PRN (19:45)
[2024-03-15] MEDS: SACUBITRIL-VALSARTAN 24mg/26mg TAB PO SCH (23:25)
[2024-03-16] VITALS (12 sets, daily range): BP systolic 100–120; BP diastolic 64–73; PULSE 80–106; RESP 18; TEMP 36.6; O2SAT 95–98
[2024-03-16] MEDS: IPRATROPIUM BROM 0.5 MG/2.5ML INH SOL NEB PRN (01:37)
--- NOTE | 2024-03-16 05:50 | DVHSR ---
APPROVED REPORT EXAM: Two-dimensional and M-mode echocardiogram with Doppler and color Doppler. Blood Pressure: 106/76 mmHg RISK FACTORS Height: 5' 10", Weight: 174 DIMENSIONS LVDd7.3 (3.8-5.7cm)LA (2D)6.3 (1.9-4.0cm)Aortic Root2.8 (2.0-3.7cm) LVDs7.1 (2.5-4.0cm)LA (MM) (1.9-4.0cm)Aortic Cusp Exc1.6 (1.5-2.0cm) EF (%) 10.0 (55-70%)Rt. Atrium5.7 (1.9-4.0cm)Asc. Aorta cm IVSd1.0 (0.7-1.1cm)RV (D) (1.8-2.4cm) PWd0.9 (0.7-1.1cm) Mitral Valve MitralMitral Stenosis E wave1.90m/sMV Mean GR.mmHg E/A ratio0.02D MVAcm2 Aortic Valve Aortic ValveAortic Stenosis V10.50m/[place] Mean GR.3mmHg V21.10m/[place] Peak GR.5mmHg LVOT Diameter2.7 (1.8-2.4cm)Doppler AVA2.60cm2 Pulmonic Valve V20.40m/s Tricuspid Valve TR Velocity3.60m/s [id number] LEFT VENTRICLE The left ventricle is severely dilated in size. Left ventricular wall thickness is normal. Ejection fraction is severely decreased and is estimated at 10-15%. There is severe global hypokinesis. LV apical thrombus could not be excluded. RIGHT VENTRICLE The right ventricle is severely dilated in size. Right ventricular systolic function is severely dec reased. ATRIA Both atria are severely dilated in size. Significant septal bowing to the right side MITRAL VALVE There is significant tethering of the leaflets especially the posterior wall. There is severe mitral regurgitation. PULMONIC VALVE Likely normal. TRICUSPID VALVE There is severe tricuspid regurgitation with malcoaptation of the leaflets. PA systolic pressure is estimated at 74 mm Hg. AORTIC VALVE Normal structure and function. GREAT VESSELS The aortic root is of normal size. PERICARDIAL EFFUSION No significant pericardial effusion. IVC is dilated in size. Conclusion Severely dilated left ventricle with severely decreased systolic function. Ejection fraction is estimated at 10-15%. Severely dilated right ventricle with severely decreased systolic function. Severe mitral regurgitation. Severe tricuspid regurgitation. PA systolic pressure is estimated at 74 mm Hg.
[2024-03-16 07:28] LABS: Basophils # (auto) 0 10 ^3/uL (0-0.2); Basophils % (auto) 0.2 % (0.0-2.0); Eosinophils # (auto) 0.1 10 ^3/uL (0-0.8); Eosinophils % (auto) 0.7 % (0.0-7.0); Hematocrit 43.7 % (41.0-53.0); Hemoglobin 14.6 g/dL (13.5-17.5); Lymphocytes # (auto) 2.6 10 ^3/uL (0.4-5.4); Lymphocytes % (auto) 17.9 % (10.0-50.0); Mean Corpuscular Hemoglobin 32.1 pg (28.0-32.0); Mean Corpuscular Hgb Conc. 33.3 g/dL (32.0-36.0); Mean Corpuscular Volume 96.4 fL (80.0-100.0); Monocytes # (auto) 1.4 10 ^3/uL (0-1.3); Monocytes % (auto) 9.9 % (0.0-12.0); Neutrophils # (auto) 10.3 10 ^3/uL (1.6-8.6); Neutrophils % (auto) 71.3 % (37.0-80.0); Nucleated Red Blood Cells % 0.1 %; Platelet Count (auto) 267 10^3/uL (140-450); Red Blood Cells 4.54 10^6/uL (4.5-5.90); Red Cell Distribution Width 14.8 % (11.8-14.3); White Blood Cell 14.5 10^3/uL (4.4-10.8)
[2024-03-16 07:44] LABS: Chloride 106 mmol/L (98-107); Potassium 4.9 mmol/L (3.5-5.1); Sodium 137 mmol/L (136-145)
[2024-03-16 07:45] LABS: Anion Gap 8 (5-15); Calcium 9.4 mg/dL (8.7-10.4); Carbon Dioxide 23 mmol/L (20-31)
[2024-03-16 07:50] LABS: BUN/Creatinine Ratio 21.2 (10.0-20.0); Glucose 103 mg/dL (74-106)
[2024-03-16 07:51] LABS: Blood Urea Nitrogen 31 mg/dL (9-23)
--- NOTE | 2024-03-16 09:50 | DVHPN2 ---
Consult Progress Note Date Seen: Mar 16, 2024 Subjective Review of Systems: CVS:Normal, RESPIRATORY:Normal, NEURO:Normal Other Systems: Denies any further cardiac symptoms Objective vital signs Vital Sign Date Time Temp Pulse Resp B/P (MAP) Pulse Ox O2 Delivery O2 Flow Rate FiO2 03/16/24 09:00 97.9 100 18 110/72 (85) 97 97.9 03/16/24 01:38 Room Air* 0 21 Total Intake and Output 03/15/24 03/15/24 03/16/24 15:00 23:00 07:00 Intake Total 750 ml Balance 750 ml medications Current Medications Medications Dose Ordered Sig/Wilder Route Start Time Stop Time Status Last Admin Dose Admin Carvedilol 3.125 mg Q12HR PO 03/14/24 22:00 03/15/24 21:48 3.125 MG Atorvastatin Calcium 10 mg HS PO 03/14/24 22:00 03/15/24 21:47 10 MG Aspirin 81 mg DAILY PO 03/15/24 10:00 03/15/24 09:21 81 MG Furosemide 40 mg DAILY PO 03/15/24 10:00 03/15/24 09:21 40 MG Albuterol 2.5 mg Q6HPRN PRN NEB 03/14/24 18:15 03/16/24 01:38 2.5 MG Temazepam 15 mg QHSP PRN PO 03/14/24 18:15 Ondansetron HCl 4 mg Q4HP PRN IV 03/14/24 18:15 Acetaminophen 650 mg Q6HP PRN PO 03/14/24 18:15 Azithromycin 250 ml @ 125 mls/hr DAILY IV 03/16/24 10:00 Ceftriaxone Sodium 50 ml @ 100 mls/hr DAILY@09 IV 03/16/24 09:00 Furosemide 40 mg BIDD IV 03/15/24 18:00 03/16/24 06:50 40 MG Sacubitril/ Valsartan 1 tab BID PO 03/15/24 22:00 03/15/24 23:25 1 TAB Empaglifozin 10 mg DAILY PO 03/16/24 10:00 Spironolactone 12.5 mg DAILY PO 03/16/24 10:00 Ipratropium [place] 0.5 mg Q6HPRN PRN NEB 03/15/24 19:45 03/16/24 01:37 0.5 MG Albuterol 2.5 mg Q6HPRN PRN NEB 03/15/24 19:45 Examination: LUNGS:Normal, CVS:Abnormal (BLE edema 1+ improved), NEURO:Normal laboratory and microbiology Laboratory Tests 03/16/24 06:57 Test 03/16/24 06:57 Range/Units Serum Glucose 103 74-106 mg/dL Problem List/Assessment/Plan Problem List/Assessment/Plan Acute on chronic decompensated HFrEF, NYHA Class III NSTEMI type 2 secondary to above Non-ischemic/drug-induced cardiomyopathy Severe mitral/tricuspid valve regurgitation Severe pulmonary hypertension Likely JATIN on CKD Methamphetamine/tobacco use Plan/Recommendation (Dr. Anderson) The patient presents with an acute exacerbation of congestive heart failure. A transthoracic echocardiogram revealed an EF of 10-15% with severely dilated left/right ventricle, severe mitral/tricuspid regurgitation and PA pressures at 74 mmHg. Continue GDMT for CHF and up titrate as tolerated. Continue preload and afterload reduction, strict I&Os, daily weight, maintain fluid restrictions. The patient can benefit from outpatient Mitraclip/Triclip interventions. Not a candidate at this time given poor medical compliance and drug abuse. Strongly counseled on risk factor modifications including medical compliance and methamphetamines/tobacco use cessation. Follow-up with a primary shoe stock associate within 3-4 weeks post discharge. There is no further cardiac work-up indicated at this time. Please call if in need to re-consult. Thank you for allowing us to participate in this patient's care. This medical document was created using an electronic medical record system with voice recognition software and computerized dictation system. Although this document has been carefully reviewed, there might still be some phonetic and typographical errors. Occasional wrong-word or ``sound-alike substitutions may have occurred due to the inherent limitations of voice recognition software. These areas are purely typographical due to imperfections of the software programs and do not reflect any compromise in the patient's medical care. Please read the chart carefully and recognize, using context, where these substitutions have occurred. Plan discussed with: Patient, Other Date of Service: Mar 16, 2024 Billing Provider: BRANDO ANDERSON MD Cardiology Common Codes: [id number] HOSP CARE([facility] MARTHA CRAFT [facility] Mar 16, 2024 09:49
[2024-03-16] MEDS: cefTRIAXone 1GM/50ML D5W 50 ML IV SCH (10:52)
[2024-03-16] MEDS: EMPAGLIFLOZIN 10 MG TAB PO SCH (11:05)
[2024-03-16] MEDS: SPIRONOLACTONE 25 MG TAB PO SCH (11:06)
[2024-03-16] MEDS: AZITHROMYCIN 500MG/ 250ML 250 ML IV SCH (13:13)
--- NOTE | 2024-03-16 13:22 | DVHDSRES ---
Discharge Summary Date of Admission Resident Creating Document: RICHARDSON FAGAN RESIDENT Mar 14, 2024 at 18:12 Date of Discharge: Mar 16, 2024 Admitting Diagnosis CHF exacerbation Acute on chronic respiratory failure Labs/Diagnostic Data: PATIENT: LAQUITA CARROLL ACCT: [id number] UNIT: [id number] : 1975 LOC: ER ROOM / BED: / AGE / SEX: 48 / M ADM STATUS: REG ER SERVICE 1304 ORDERING PHYSICIAN: DEON COLEMAN MD PROCEDURE(s): CXRP - CHEST PORTABLE REASON: sob ORDER NUMBER(s): [id number], ACCESSION NUMBER(s): [id number] CHEST RADIOGRAPH Indication: sob Technique: Single frontal view of the chest was obtained Comparison: CHEST XRAY 1 VIEW on DOS: 09/09/19 FINDINGS: Lines and Tubes: None Lungs: No focal consolidation. Pleura: No effusion. No pneumothorax. Cardiomediastinal contours: Unremarkable Bones: No acute osseous abnormality. IMPRESSION: No acute cardiopulmonary disease. ATED BY: PANCHITO MANTILLA MD DICTATED DATE/TIME: 03/14/24 1321 Laboratory Results Test 03/16/24 06:57 03/15/24 13:35 03/15/24 12:23 03/15/24 10:33 White Blood Count 14.5 10^3/uL (4.4-10.8) Red Blood Count 4.54 10^6/uL (4.5-5.90) Hemoglobin 14.6 g/dL (13.5-17.5) Hematocrit 43.7 % (41.0-53.0) Mean Corpuscular Volume 96.4 fL (80.0-100.0) Mean Corpuscular Hemoglobin 32.1 pg (28.0-32.0) Mean Corpuscular Hemoglobin Concent 33.3 g/dL (32.0-36.0) Red Cell Distribution Width 14.8 % (11.8-14.3) Platelet Count 267 10^3/uL (140-450) Mean Platelet Volume 8.0 fL (6.9-10.8) Neutrophils (%) (Auto) 71.3 % (37.0-80.0) Lymphocytes (%) (Auto) 17.9 % (10.0-50.0) Monocytes (%) (Auto) 9.9 % (0.0-12.0) Eosinophils (%) (Auto) 0.7 % (0.0-7.0) Basophils (%) (Auto) 0.2 % (0.0-2.0) Neutrophils # (Auto) 10.3 10 ^3/uL (1.6-8.6) Lymphocytes # (Auto) 2.6 10 ^3/uL (0.4-5.4) Monocytes # (Auto) 1.4 10 ^3/uL (0-1.3) Eosinophils # (Auto) 0.1 10 ^3/uL (0-0.8) Basophils # (Auto) 0 10 ^3/uL (0-0.2) Nucleated Red Blood Cells 0.1 % Sodium Level 137 mmol/L (136-145) Potassium Level 4.9 mmol/L (3.5-5.1) Chloride Level 106 mmol/L (98-107) Carbon Dioxide Level 23 mmol/L (20-31) Anion Gap 8 (5-15) Blood Urea Nitrogen 31 mg/dL (9-23) Creatinine 1.46 mg/dL (0.700-1.30) Glomerular Filtration Rate Calc 59 mL/min (>90) BUN/Creatinine Ratio 21.2 (10.0-20.0) Serum Glucose 103 mg/dL (74-106) Calcium Level 9.4 mg/dL (8.7-10.4) B-Type Natriuretic Peptide 1188.19 pg/mL (0-100) Total Bilirubin 0.6 mg/dL (0.2-1.0) Aspartate Amino Transferase (AST) 16 U/L (13-40) Alanine Aminotransferase (ALT) 24 U/L (7-40) Alkaline Phosphatase 133 U/L (46-116) Total Protein 6.8 g/dL (5.7-8.2) Albumin 3.8 g/dL (3.2-4.8) Urine Color Light-yellow (Yellow) Urine Clarity Clear (Clear) Urine pH 5.0 (5.0-9.0) Urine Specific [place] 1.013 (1.001-1.035) Urine Protein Negative (Negative) Urine Ketones Negative (Negative) Urine Blood Negative /uL (Negative) Urine Nitrite Negative (Negative) Urine Bilirubin Negative (Negative) Urine Urobilinogen Normal mg/dL (Negative) Urine Leukocyte Esterase Negative /uL (Negative) Urine RBC None seen /hpf (0 - 3) Urine WBC 1 /hpf (0 - 3) Urine Squamous Epithelial Cells Few /hpf (<5) Urine Bacteria None seen /hpf (None Seen) Urine Hyaline Casts Few /lpf (0 - 2) Urine Glucose Normal mg/dL (Normal) Urine Opiates Screen Neg (NEGATIVE) Urine Fentanyl Screen Neg (NEGATIVE) Urine Barbiturates Screen Neg (NEGATIVE) Urine Phencyclidine Screen Neg (NEGATIVE) Urine Amphetamines Screen Pos (NEGATIVE) Urine Benzodiazepines Screen Neg (NEGATIVE) Urine Cocaine Screen Neg (NEGATIVE) Urine Cannabinoids Screen Neg (NEGATIVE) Influenza Type A Antigen Negative (Negative) Influenza Type B Antigen Negative (Negative) SARS-CoV-2 Antigen (Rapid) Negative (NEGATIVE) Test 03/15/24 04:49 03/14/24 20:56 Hemoglobin A1c 5.9 % A1C (<5.7) Troponin I High Sensitivity 36 ng/L (</=54) Other Laboratory Tests 03/16/24 06:57 Brief Hx & Hospital Course: This 48-year-old with a past medical history of congestive heart failure, hypertension, asthma, tobacco and methamphetamine use presented to the ED with a chief complaint of shortness of breath for one week, cough with yellowish sputum production for 3 weeks. Per patient, shortness of breath was progressive and was associated with PND, MIRANDA, and bilateral lower extremity edema while on his lasix. Patient denied any chest pain, fever, chills, sick contact, nausea or vomiting. Given his history of congestive heart failure patient came to the ED for further management. In the ED, initial vitals were Temp 98.3, HR: 98, RR:16 pulse oximetry of 98 on room air. Lab values showed WBC 9.8--> 20-22.6. HGB: 13, Cr: 1.46 ( baseline 1.13 2 years ago), BNP 1345 Troponin level peaked at 59 ng/L. Twelve lead ekg revealed a sinus rhythm with global T-wave inversion and suggestive of left ventricular hypertrophy. Of note, patient was diagnosed with congestive heart failure approximately two years ago at [facility] and on bisoprolol and Lasix therapy at home. At [facility], patient was started on furosemide, received a breathing treatment and antibitics. transthoracic echocardiography revealed an EF of 10-15% with severely dilated left/right ventricle, severe mitral/tricuspid regurgitation and PA pressures at 74 mmHg. GDMT intiated and patient advised to follow up with the wood experimental mechanic in 3-4 weeks. Examination today, patient's breathing is much better is improved bilateral pitting edema so improved patient did express that he is feeling better. Overall, patient is feeling well and he did express a desire to be discharged today if possible. Review of all his vital and lab and clinical findings, we believe patient is stable for discharge home. Patient has been admonished to stay away from illicit drugs and follow up with all his scheduled appointment with the wood experimental mechanic for any her providers. We will discharge patient home with all the medications that he has been receiving well on admission and we will see him in 7 days at the discharge Clinic. Examination General Appearance: Alert, Oriented X3, Cooperative, No acute distress HEENT: Atraumatic, PERRLA, EOMI, Mucous membrane moist/pink Respiratory: Clear to auscultation, Normal air movement Cardiovascular: Point of maximal impulse displaced, regular rate, Normal S1, Normal S2, No murmurs, no chest wall tenderness Abdominal: NO distention, no tenderness, bowel sounds present, no scars noted Extremities: No clubbing, No cyanosis,+1 pitting edema ( bilateral, improved) Skin: No rashes, No breakdown, No significant lesion Neuro: Normal gait, Normal speech, Strength at 5/5 X4 ext, Normal tone, Sensation intact, Cranial nerves 3-12 NL, Reflexes 2+ Psych/Mental Status: Mental status NL, Mood NL Diagnoses Hypertensive heart disease Acute on chronic decompensated HFrEF Copd Exacerbtion Likely early pneumonia gram negative/gram positive Acute on chronic respiratory failure Elevated troponin, possible demand ischemia NSTEMI type 2 secondary CHF exacerbation Non-ischemic/drug-induced cardiomyopathy methamphetamine abuse Asthma Cardiomegaly on chest x-ray prediabetic tobacco use,37 pack years Acute kidney injury on CKD ( Baseline cr:2021) Discharge planning Continue the follow medications: GDMT (spironolactone, empagliflozin, Entresto, carvedilol) --> Aspirin, atorvastatin --> Furosemide 40mg po bid --> Levofloxacin 750 mg daily for 5 days Follow up with [employer] in 3-4 weeks Patient was counseled against methamphetamine abuse and advised to follow up with his wood experimental mechanic Case and discharge plan was discussed with Dr. Tabares Consults/Reason for consult CHF with reduced ejection fraction Methamphetamine abuse Operations or Procedures PATIENT: LAQUITA CARROLL ACCT: [id number] UNIT: [id number] : 1975 LOC: [facility] ROOM / BED: [facility] / A AGE / SEX: 48 / M ADM STATUS: ADM IN SERVICE 11 ORDERING PHYSICIAN: DILIA SMITH PROCEDURE(s): ECIDC - ECHO 2D MODE CARDIAC DOP REASON: ef ORDER NUMBER(s): [id number], ACCESSION NUMBER(s): [id number] APPROVED REPORT EXAM: Two-dimensional and M-mode echocardiogram with Doppler and color Doppler. Blood Pressure: 106/76 mmHg RISK FACTORS Height: 5' 10", Weight: 174 DIMENSIONS LVDd 7.3 (3.8-5.7cm) LA (2D) 6.3 (1.9-4.0cm) Aortic Root 2.8 (2.0- 3.7cm) LVDs 7.1 (2.5-4.0cm) LA (MM) (1.9-4.0cm) Aortic Cusp Exc 1.6 (1.5- 2.0cm) EF (%) 10.0 (55-70%) Rt. Atrium 5.7 (1.9-4.0cm) Asc. Aorta cm IVSd 1.0 (0.7-1.1cm) RV (D) (1.8-2.4cm) PWd 0.9 (0.7-1.1cm) Mitral Valve Mitral Mitral Stenosis E wave 1.90m/s MV Mean GR. mmHg E/A ratio 0.0 2D MVA cm2 Aortic Valve Aortic Valve Aortic Stenosis V1 0.50m/s AO Mean GR. 3mmHg V2 1.10m/s AO Peak GR. 5mmHg LVOT Diameter 2.7 (1.8-2.4cm) Doppler THOMPSON 2.60cm2 Pulmonic Valve V2 0.40m/s Tricuspid Valve TR Velocity 3.60m/s RVSP 74mmHg LEFT VENTRICLE The left ventricle is severely dilated in size. Left ventricular wall thickness is normal. Ejection fraction is severely decreased and is estimated at 10-15%. There is severe global hypokinesis. LV apical thrombus could not be excluded. RIGHT VENTRICLE The right ventricle is severely dilated in size. Right ventricular systolic function is severely decreased. ATRIA Both atria are severely dilated in size. Significant septal bowing to the right side MITRAL VALVE There is significant tethering of the leaflets especially the posterior wall. There is severe mitral regurgitation. PULMONIC VALVE Likely normal. TRICUSPID VALVE There is severe tricuspid regurgitation with malcoaptation of the leaflets. PA systolic pressure is estimated at 74 mm Hg. AORTIC VALVE Normal structure and function. GREAT VESSELS The aortic root is of normal size. PERICARDIAL EFFUSION No significant pericardial effusion. IVC is dilated in size. Conclusion Severely dilated left ventricle with severely decreased systolic function. Ejection fraction is estimated at 10-15%. Severely dilated right ventricle with severely decreased systolic function. Severe mitral regurgitation. Severe tricuspid regurgitation. PA systolic pressure is estimated at 74 mm Hg. SIGNED BY: AMISH MORRIS MD Condition at Discharge: Good Final Diagnosis/Problems List Hypertensive heart disease Acute on chronic decompensated HFrEF Copd Exacerbtion Likely early pneumonia gram negative/gram positive Acute on chronic respiratory failure Elevated troponin, possible demand ischemia NSTEMI type 2 secondary CHF exacerbation Non-ischemic/drug-induced cardiomyopathy methamphetamine abuse Asthma Cardiomegaly on chest x-ray prediabetic tobacco use,37 pack years Acute kidney injury on CKD ( Baseline cr:2021) Discharge Disposition: Home Discharge Instruct/Medications Diet: Cardiac 2g Na,low cholest (cardiac diet), Renal Discharge Statement: "Patient was advised to return to the ER or call 911 if any headaches, dizziness, shortness of breath, chest pain, abdominal pain, bleeding, fevers, or worsening of medical condition. Patient was counseled about treatment plan, medications, possible side effects, patientverbalized understanding. All questions were answered to the best of my ability. This discharge took greater then 30 minutes in planning, reviewing documentation, counseling the patient, and discussing with other team members." ASSESSMENT ASSESSMENT Assessment Date of Service: Mar 16, 2024 Billing Provider: DREAD TABARES MD Common Visit Codes: 48246-YAR/OBS DISCH DAY >30min RICHARDSON FAGAN RESIDENT Mar 16, 2024 13:22 DREAD TABARES MD Mar 16, 2024 18:29
[2024-03-16] MEDS ORDERED: ACET-1882 PO (13:26)
[2024-03-16] MEDS ORDERED: LEVO750T40 PO (13:26)
[2024-03-16] MEDS ORDERED: ASPI-325 PO (13:26)
[2024-03-16] MEDS ORDERED: EMPA1TAB PO (13:26)
[2024-03-16] MEDS ORDERED: SPIR25TA PO (13:26)
[2024-03-16] MEDS ORDERED: SACU1TAB PO (13:26)
[2024-03-16] MEDS ORDERED: ATOR20TA50 PO (13:26)
[2024-03-16] MEDS ORDERED: FURO40TA4 PO (13:26)
[2024-03-16] MEDS ORDERED: CARV-214 PO (13:26)
== END 2024-03-16 17:55 | disposition home or self-care (01) | DRG 133 ==
LOC: ER 12:44 → EDBD 12:44 → OVERFLOW 18:12 → WEST WING 03-15 22:08
PROVIDERS: ADMIT Internal Medicine Geriatric Medicine; ATTEND Internal Medicine Geriatric Medicine
DX: J96.21 Acute and chronic respiratory failure with hypoxia (principal); I21.A1 Myocardial infarction type 2; I50.23 Acute on chronic systolic (congestive) heart failure; J15.69 Pneumonia due to other Gram-negative bacteria; I27.20 Pulmonary hypertension, unspecified; I42.7 Cardiomyopathy due to drug and external agent; N17.9 Acute kidney failure, unspecified; I13.0 Hypertensive heart and chronic kidney disease with heart failure and stage 1 through stage 4 chronic kidney disease, or unspecified chronic kidney disease; J15.9 Unspecified bacterial pneumonia; Z20.822 Contact with and (suspected) exposure to COVID-19; I42.8 Other cardiomyopathies; F17.210 Nicotine dependence, cigarettes, uncomplicated; N18.9 Chronic kidney disease, unspecified; F15.10 Other stimulant abuse, uncomplicated; I08.1 Rheumatic disorders of both mitral and tricuspid valves; J44.1 Chronic obstructive pulmonary disease with (acute) exacerbation; J44.0 Chronic obstructive pulmonary disease with (acute) lower respiratory infection; R73.03 Prediabetes; J45.901 Unspecified asthma with (acute) exacerbation; Z82.3 Family history of stroke; Z82.49 Family history of ischemic heart disease and other diseases of the circulatory system; Z82.5 Family history of asthma and other chronic lower respiratory diseases
CPT/HCPCS: 36415; 71045; 80048; 80053; 80307; 81001; 83036; 83880; 84484; 85025; 87426; 87804; 93005; 93306; 94640; 96372; 96374; 99291; G0378

== ENCOUNTER 2024-09-03 11:31 | Inpatient (IN) | payer MEDICAID ==
[~2024-09-03] VITALS: Ht 167.6 cm; Wt 73.0 kg
[~2024-09-03 11:31] MED LIST: ACET-1882 PO; ASPI-325 PO; ATOR20TA50 PO; CARV-214 PO; EMPA1TAB PO; FURO40TA4 PO; LEVO750T40 PO; SACU1TAB PO; SPIR25TA PO
--- NOTE | 2024-09-03 13:01 | DVH ---
XY CHEST TWO VIEWS ROUTINE CLINICAL HISTORY: R/o PNA, HF COMPARISON: None TECHNIQUE: Frontal and lateral view of the chest was obtained FINDINGS: Lines and Tubes: None Lungs: No focal consolidation. Pleura: No effusion. No pneumothorax. Cardiomediastinal contours: Cardiomegaly. Bones: No acute osseous abnormality. IMPRESSION: Cardiomegaly with mild CHF.
--- NOTE | 2024-09-03 13:06 | ED.PDOC ---
Musculoskeletal HPI Comments 49 year old male with a Hx of Gerd, HTN, and CHF presents to the ED for the c/c of Bilateral Leg non-pitting edema. Pt states that Leg edema has been going on for the past 1x week with no alleviating factors at this time. Pt does note that his pain worsens with walking. Pt also notes on taking 20mg of Lasix twice a day w/ no improvement. No other associated Modifiers or symptoms at this time. Chief Complaint: Extremity Swelling Time Seen by MD: 12:52 Primary Care Provider: UNKNOWN Reviewed Notes: Nurses Notes, Medications, Allergies Allergies: Coded Allergies: NO KNOWN ALLERGIES (Unverified , 08/25/10) Home Meds Active Scripts Levofloxacin Hemihydrate (LEVOFLOXACIN) 750 Mg Tab, 1 TAB PO DAILY, #5 TAB Prov:RICHARDSON FAGAN [facility] 03/16/24 Furosemide (Furosemide) 40 Mg Tab, 40 MG PO BID for 30 Days, #60 TAB Prov:RICHARDSON FAGAN [facility] 03/16/24 Spironolactone (Aldactone) 25 Mg Tab, 12.5 MG PO DAILY for 30 Days, #15 TAB Prov:RICHARDSON FAGAN [facility] 03/16/24 Acetaminophen (Acetaminophen) 325 Mg Tab, 650 MG PO Q6HP PRN for 30 Days, #240 TAB Prov:RICHARDSON FAGAN [facility] 03/16/24 Aspirin (Aspirin Low Dose) 81 Mg Tab, 81 MG PO DAILY for 30 Days, #30 TAB Prov:RICHARDSON FAGAN [facility] 03/16/24 Atorvastatin Calcium (ATORVASTATIN CALCIUM) 20 Mg Tab, 10 MG PO HS for 30 Days, #15 TAB Prov:RICHARDSON FAGAN 03/16/24 Carvedilol (COREG) 3.125 Mg Tab, 3.125 MG PO Q12HR for 30 Days, #60 TAB Prov:RICHARDSON FAGAN [facility] 03/16/24 Empagliflozin (Jardiance) 10 Mg Tab, 10 MG PO DAILY for 30 Days, #30 TAB Prov:RICHARDSON FAGAN 03/16/24 Sacubitril-Valsartan (Entresto 24-26 mg) 1 Tab Tab, 1 TAB PO BID for 30 Days, #60 TAB Prov:RICHARDSON FAGAN [facility] 03/16/24 Information Source: Patient Mode of Arrival: Ambulatory Location: Bilateral Extremity Location: Leg Timing: Weeks Prehospital treatment: None Severity: Moderate Able to Move Extremity: Yes Bear Weight: No Pain: Moderate Hand Dominance: Right Mechanism: Unknown Circumstances: Unknown Onset of Symptoms: Spontaneous Symptoms: Swelling, Pain, Erythema DVT Risk Factors: CHF Last Tetanus: Unknown Associated signs and symptoms: Swelling, Leg pain Past Medical History PAST MEDICAL HISTORY: Asthma, CHF, HTN Surgical History: Denies all surgeries Family History Family History: Reviewed,noncontributory to illness Social History Smoker: Greater Than 1 Pack/Day Alcohol: Denies ETOH Use Drugs: Methamphetamine Lives In: Home Constitutional: denies: chills, diaphoresis, fatigue, fever, malaise, sweats, weakness, others EENTM: denies: blurred vision, double vision, ear bleeding, ear discharge, ear drainage, ear pain, ear ringing, eye pain, eye redness, hearing loss, mouth pain, mouth swelling, nasal discharge, nose bleeding, nose congestion, nose pain, photophobia, tearing, throat pain, throat swelling, voice changes, others Respiratory: denies: cough, hemoptysis, orthopnea, SOB at rest, shortness of breath, SOB with excertion, stridor, wheezing, others Cardiovascular: denies: chest pain, dizzy spells, diaphoresis, Dyspnea on exertion, edema, irregular heart beat, left arm pain, lightheadedness, palpitations, PND, syncope, others Gastrointestinal: denies: abdomen distended, abdominal pain, blood streaked bowels, constipated, diarrhea, dysphagia, difficulty swallowing, hematemesis, melena, nausea, poor appetite, poor fluid intake, rectal bleeding, rectal pain, vomiting, others Genitourinary: denies: burning, dysuria, flank pain, frequency, hematuria, incontinence, penile discharge, penile sore, pain, testicle pain, testicle swelling, urgency, others Neurological: denies: dizziness, fainting, headache, left sided numbness, left sided weakness, numbness, paresthesia, pre-existing deficit, right sided numbness, right sided weakness, seizure, speech problems, tingling, tremors, weakness, others Musculoskeletal: reports: others (nonpitting bilateral leg edema); denies: back pain, gout, joint pain, joint swelling, muscle pain, muscle stiffness, neck pain Integumetry: denies: bruises, change in color, change in hair/nails, dryness, laceration, lesions, lumps, rash, wounds, others Allergic/Immunocompromised: denies: Difficulty Healing, Frequent Infections, Hives, Itching, others Hematologic/Lymphatic: denies: anemia, blood clots, easy bleeding, easy bruising, swollen glands, others Endocrine: denies: excessive hunger, excessive sweating, excessive thirst, excessive urination, flushing, intolerance to cold, intolerance to heat, unexplained weight gain, unexplained weight loss, others Psychiatric: denies: anxiety, bipolar disorder, depression, hopeless, panic disorder, schizophrenia, sleepless, suicidal, others All Other Systems: Reviewed and Negative Physical Exam General Appearance: Mild Distress, Normal, Obese HEENT: Normal ENT Inspection, Pharynx Normal, TMs Normal Neck: Full Range of Motion, Non-Tender, Normal, Normal Inspection Respiratory: Chest Non-Tender, Lungs Clear, No Accessory Muscle Use, No Respiratory Distress, Normal Breath Sounds Cardiovascular: No Edema, No JVD, No Murmur, No Gallop, Normal Peripheral Pulses, Regular Rate/Rhythm Breast Exam: Deferred Gastrointestinal: No Organomegaly, Non Tender, No Pulsatile Mass, Normal Bowel Sounds, Soft Genitalia: Deferred Pelvic: Deferred Rectal: Deferred Extremities: Calf tenderness, Leg edema, Normal range of motion, Pedal edema, Swelling, Tender Musculoskeletal : Apperance: Normal Neurologic: Alert, No Motor Deficits, Normal Affect, Normal Mood, No Sensory Deficits Cerebellar Function: Normal Reflexes: Normal Skin: Dry, Normal Color, Warm Lymphatic: No Adenopathy Was a procedure done? Was a procedure done?: No Differential Diagnosis EXT Differential Diagnosis: Cellulitis, CHF, Deep Vein Thrombosis, Sprain, Contusion, Strain, Rheumatoid, Septic, Neurovascular injury, Arthritis X-Ray, Labs, Meds, VS Vital Signs Date Time Temp Pulse Resp B/P (MAP) Pulse Ox O2 Delivery O2 Flow Rate FiO2 09/03/24 16:00 68 18 97 Room Air 09/03/24 16:00 97.9 79 17 116/88 (97) 97 97.9 09/03/24 15:57 116/88 09/03/24 12:24 97.6 96 17 108/68 (81) 98 97.6 09/03/24 12:10 97 Lab Test 09/03/24 12:54 09/03/24 12:20 Range/Units White Blood Count 7.3 4.4-10.8 10^3/uL Red Blood Count 4.60 4.5-5.90 10^6/uL Hemoglobin 12.9 L 13.5-17.5 g/dL Hematocrit 40.9 L 41.0-53.0 % Mean Corpuscular Volume 88.9 80.0-100.0 fL Mean Corpuscular Hemoglobin 28.1 28.0-32.0 pg Mean Corpuscular Hemoglobin Concent 31.6 L 32.0-36.0 g/dL Red Cell Distribution Width 20.1 H 11.8-14.3 % Platelet Count 222 140-450 10^3/uL Mean Platelet Volume 7.4 6.9-10.8 fL Neutrophils (%) (Auto) 59.0 37.0-80.0 % Lymphocytes (%) (Auto) 21.6 10.0-50.0 % Monocytes (%) (Auto) 15.4 H 0.0-12.0 % Eosinophils (%) (Auto) 2.9 0.0-7.0 % Basophils (%) (Auto) 1.1 0.0-2.0 % Neutrophils # (Auto) 4.3 1.6-8.6 10 ^3/uL Lymphocytes # (Auto) 1.6 0.4-5.4 10 ^3/uL Monocytes # (Auto) 1.1 0-1.3 10 ^3/uL Eosinophils # (Auto) 0.2 0-0.8 10 ^3/uL Basophils # (Auto) 0.1 0-0.2 10 ^3/uL Nucleated Red Blood Cells 0.1 % Sodium Level 142 136-145 mmol/L Potassium Level 4.4 3.5-5.1 mmol/L Chloride Level 106 98-107 mmol/L Carbon Dioxide Level 28 20-31 mmol/L Anion Gap 8 5-15 Blood Urea Nitrogen 33 H 9-23 mg/dL Creatinine 2.19 H 0.700-1.30 mg/dL Glomerular Filtration Rate Calc 36 >90 mL/min BUN/Creatinine Ratio 15.1 10.0-20.0 Serum Glucose 89 74-106 mg/dL Calcium Level 9.4 8.7-10.4 mg/dL Total Bilirubin 1.0 0.2-1.0 mg/dL Aspartate Amino Transferase (AST) 40 13-40 U/L Alanine Aminotransferase (ALT) 32 7-40 U/L Alkaline Phosphatase 215 H 46-116 U/L B-Type Natriuretic Peptide 2722.13 0-100 pg/mL Total Protein 6.7 5.7-8.2 g/dL Albumin 3.7 3.2-4.8 g/dL Urine Color Light-yellow Yellow Urine Clarity Clear Clear Urine pH 5.5 5.0-9.0 Urine Specific [place] 1.008 1.001-1.035 Urine Protein Negative Negative Urine Ketones Negative Negative Urine Blood Negative Negative /uL Urine Nitrite Negative Negative Urine Bilirubin Negative Negative Urine Urobilinogen Normal Negative mg/dL Urine Leukocyte Esterase Negative Negative /uL Urine RBC <1 0 - 3 /hpf Urine Microscopic WBC < 1 0-3 /HPF Urine Squamous Epithelial Cells None seen <5 /hpf Urine Bacteria Few H None Seen /hpf Urine Hyaline Casts Mod 0 - 2 /lpf Urine Glucose Normal Normal mg/dL X-Ray, Labs, Meds, VS Comment 49 year old male with a Hx of Gerd, HTN, and CHF presents to the ED for the c/c of Bilateral Leg non-pitting edema. Patient arrives alert and oriented, ABC's intact, afebrile, vital signs stable, saturating well in room air CBC was ordered to exclude anemia, blood loss, or infection. BMP was ordered to exclude electrolyte abnormalities, renal failure, dehydration, hyperglycemia CMP was ordered to exclude electrolyte abnormalities, renal failure, dehydration, hyperglycemia and/or liver enzyme abnormalities. Urinalysis was ordered to rule out UTI or hematuria. DVT ordered: Patient presents with symptoms and signs consistent with CHF exacerbation. Labs also show CKD. CXR and lab workup (BNP) confirms this diagnosis. C/o SOB with exertion. No evidence of acute cardiac ischemia or SC causing CHF. No evidence of pneumonia nor DVT per US. Patient was given Lasix. Patient's vital signs remained stable. Blood pressure adequately controlled. No evidence of hypoxia. No evidence of respiratory distress at discharge. Patient presenting with signs and symptoms of CHF exacerbation. The patient's workup reveals that the patient needs further evaluation and/or treatment for the above medical conditions. Will need further treatment for BLE edema. Has no hx of CKD. May also benefit from nephrology consultation. Patient verbalized understanding of the above and is awaiting further evaluation by the admitting service. Time of 1ST Reevaluation: 13:23 Reevaluation 1ST: Unchanged Patient Education/Counseling: Diagnosis, Treatment Family Education/Counseling: No Family Present Departure 1 Departure Time of Disposition: 14:52 Impression: Primary Impression: Cardiomegaly Additional Impressions: CKD (chronic kidney disease) stage 3, GFR 30-59 ml/min Qualified Codes: N18.32 - Chronic kidney disease, stage 3b CHF exacerbation Qualified Codes: I50.9 - Heart failure, unspecified Disposition: ADMITTED INPATIENT Condition: Serious Critical Care Note Critical Care Time?: No Stability Stability form required: No Heart Score Heart Score: Heart Score Response (Comments) Value History N/A 0 EKG N/A 0 Age N/A 0 Risk Factors N/A 0 Troponin N/A 0 Total 0 I personally scribed for SANDEEP PERES NP ([email or web address]) on 09/03/24 at 13:06. Electronically submitted by Leonid Parkisnon ([email or web address]). I personally scribed for SANDEEP PERES NP ([email or web address]) on 09/03/24 at 15:32. Electronically submitted by Leonid Parkinson ([email or web address]). SANDEEP PERES NP Sep 03, 2024 13:06
[2024-09-03 13:14] LABS: Hematocrit 40.9 % (41.0-53.0); Hemoglobin 12.9 g/dL (13.5-17.5); Mean Corpuscular Hemoglobin 28.1 pg (28.0-32.0); Mean Corpuscular Volume 88.9 fL (80.0-100.0); Nucleated Red Blood Cells % 0.1 %
[2024-09-03 13:24] LABS: Urine Protein, UAD Negative (Negative)
[2024-09-03 13:42] LABS: Alanine Aminotransferase 32 U/L (7-40); Albumin 3.7 g/dL (3.2-4.8); Alkaline Phosphatase 215 U/L (46-116); Anion Gap 8 (5-15); BUN/Creatinine Ratio 15.1 (10.0-20.0); Bilirubin, Total 1.0 mg/dL (0.2-1.0); Blood Urea Nitrogen 33 mg/dL (9-23); Calcium 9.4 mg/dL (8.7-10.4); Carbon Dioxide 28 mmol/L (20-31); Chloride 106 mmol/L (98-107); Glucose 89 mg/dL (74-106); Potassium 4.4 mmol/L (3.5-5.1); Sodium 142 mmol/L (136-145); Total Protein 6.7 g/dL (5.7-8.2)
--- NOTE | 2024-09-03 14:17 | DVH ---
Bilateral lower extremity venous duplex Clinical History: BLE pain/edema Comparison: None Technique: Duplex Doppler evaluation of the deep venous systems of both lower extremities from the common femora l veins to the popliteal veins including color Doppler and spectral/pulsed waveform analysis was perf ormed. Findings: RIGHT SIDE: The common femoral vein demonstrates appropriate compressibility and waveform variability. There is compressibility/patency of the great saphenous vein at the proximal thigh. The femoral vein demonstrates appropriate compressibility and waveform variability. The deep femoral vein demonstrates appropriate compressibility and waveform variability. The popliteal vein demonstrates appropriate compressibility and waveform variability. There is normal compressibility at the tibioperoneal trunk. LEFT SIDE: The common femoral vein demonstrates appropriate compressibility and waveform variability. There is compressibility/patency of the great saphenous vein at the proximal thigh. The femoral vein demonstrates appropriate compressibility and waveform variability. The deep femoral vein demonstrates appropriate compressibility and waveform variability. The popliteal vein demonstrates appropriate compressibility and waveform variability. There is normal compressibility at the tibioperoneal trunk. Impression: No right or left femoropopliteal venous thrombosis.
[2024-09-03] MEDS: FUROSEMIDE 40 MG/4 ML VIAL IV ONE (15:57)
[2024-09-03] MEDS ORDERED: HYDROcodone-ACET 5/325MG TAB PO PRN (18:45)
[2024-09-03] MEDS ORDERED: DOCUSATE SOD 100 MG CAP PO PRN (18:45)
[2024-09-03] MEDS ORDERED: ACETAMINOPHEN 325 MG TAB PO PRN (18:45)
[2024-09-03] MEDS ORDERED: ONDANSETRON HCL 4 MG/2 ML VIAL IV PRN (18:45)
[2024-09-03] MEDS ORDERED: NITROGLYCERIN 0.4 MG SL TAB SL PRN (19:30)
[2024-09-03] MEDS ORDERED: MORPHINE SULFATE INJ 2 MG/ml SYRG IV PRN (19:30)
--- NOTE | 2024-09-03 19:41 | DVHHP2 ---
History of Present Illness Reason for Visit: Acute on chronic systolic heart failure History of Present Illness The patient is a 49-year-old male with past medical history of CHF, asthma, hypertension, and hyperlipidemia who presented to [facility] ED with complaint of bilateral lower extremity edema. Patient reports he has been experiencing lower extremity swelling for the past 1 week, difficulty working due to pain, unrelieved with medication Lasix 2 times a day, getting worse today that prompted this visit. Patient was seen and evaluated in the ED, laboratory data shows WBC 7.3, platelets 222, sodium 142, potassium 4.4, BUN 33, creatinine 2.19, glucose 89, alkaline phos 215, BNP 2722.13, blood pressure 116/88, heart rate 79, temperature 97.9 F, O2 saturation 97% on oxygen. Chest x-ray revealing cardiomegaly with mild CHF. Patient was started on IV Lasix, please see medication orders section in the computer. On my assessment, patient denied chest pain, no headache, no dizziness, currently on oxygen, no abdominal pain, no nausea, no vomiting, no fever, no chills. Patient was admitted for further evaluation and medical management. Past Medical History Asthma, CHF, HTN, HLD Past Surgical History Denies all surgeries Family History Reviewed, noncontributory to the management of this case. Past Social History The patient lives at home, smokes cigarettes greater than 1 pack per day, denies alcohol use, uses methamphetamine. Review of Systems Constitutional: No: Fever, Chills, Sweats, Weakness, Malaise, Other Eyes: No: Pain, Vision change, Conjunctivae inflammation, Eyelid inflammation, Other, Redness ENT: No: Ear pain, Ear discharge, Nose pain, Nose discharge, Nose congestion, Mouth pain, Mouth swelling, Throat pain, Throat swelling, Other Respiratory: No: Cough, Dry, Shortness of breath, SOB with excertion, Wheezing, Hemoptysis, Pleuritic Pain, Sputum, Wheezing, Other Cardiovascular: Edema; No: Chest Pain, Palpitations, Orthopnea, Paroxysmal Noc. Dyspnea, Lt Headedness, Other Gastrointestinal: No: Nausea, Vomiting, Abdominal Pain, Diarrhea, Constipation, Melena, Hematochezia, Other Genitourinary: No Dysuria, No Frequency, No Incontinence, No Hematuria, No Retention, No Other Musculoskeletal: other (Bilateral lower extremity swelling); No: neck pain, shoulder pain, arm pain, back pain, hand pain, leg pain, foot pain Skin: No: Rash, Lesions, Jaundice, Bruising, Other Neurological: No: Weakness, Numbness, Incoordination, Change in speech, Confusion, Seizures, Other Allergies: Coded Allergies: NO KNOWN ALLERGIES (Unverified , 08/25/10) Medications Current Medications Medications Dose Ordered Sig/Wilder Route Start Time Stop Time Status Last Admin Dose Admin Aspirin 81 mg DAILY PO 09/04/24 10:00 Furosemide 40 mg DAILY IV 09/04/24 10:00 Carvedilol 6.25 mg Q12HR PO 09/03/24 22:00 Atorvastatin Calcium 20 mg HS PO 09/03/24 22:00 Sodium Chloride 10 ml Q8HR IV 09/03/24 22:00 Acetaminophen/ Hydrocodone Bitart 1 tab Q4HP PRN PO 09/03/24 18:45 Ondansetron HCl 4 mg Q4HP PRN IV 09/03/24 18:45 Docusate Sodium 100 mg BIDPRN PRN PO 09/03/24 18:45 Acetaminophen 650 mg Q6HP PRN PO 09/03/24 18:45 Exam Vital Signs Vital Signs Date Time Temp Pulse Resp B/P (MAP) Pulse Ox O2 Delivery O2 Flow Rate FiO2 09/03/24 16:00 68 18 97 Room Air 09/03/24 16:00 97.9 116/88 (97) 97.9 General Appearance: Alert, Oriented X3, Cooperative, No acute distress HEENT: Atraumatic, PERRLA, EOMI, Mucous membr. moist/pink Respiratory: Normal air movement Cardiovascular: Regular rate, Normal S1, Normal S2, No murmurs Abdominal: Normal bowel sounds, Soft, No tenderness, No hepatospenomegaly, No masses Extremities: No clubbing, No cyanosis, No edema, Normal pulses, Other ( Bilateral lower extremity tenderness/swelling) Skin: No rashes, No significant lesion Neuro: Normal gait, Normal speech, Strength at 5/5 X4 ext, Normal tone, Sensation intact, Cranial nerves 3-12 NL, Reflexes 2+ Psych/Mental Status: Mental status NL, Mood NL Labs/Xrays Labs Test 09/03/24 12:54 09/03/24 12:20 Range/Units White Blood Count 7.3 4.4-10.8 10^3/uL Red Blood Count 4.60 4.5-5.90 10^6/uL Hemoglobin 12.9 L 13.5-17.5 g/dL Hematocrit 40.9 L 41.0-53.0 % Mean Corpuscular Volume 88.9 80.0-100.0 fL Mean Corpuscular Hemoglobin 28.1 28.0-32.0 pg Mean Corpuscular Hemoglobin Concent 31.6 L 32.0-36.0 g/dL Red Cell Distribution Width 20.1 H 11.8-14.3 % Platelet Count 222 140-450 10^3/uL Mean Platelet Volume 7.4 6.9-10.8 fL Neutrophils (%) (Auto) 59.0 37.0-80.0 % Lymphocytes (%) (Auto) 21.6 10.0-50.0 % Monocytes (%) (Auto) 15.4 H 0.0-12.0 % Eosinophils (%) (Auto) 2.9 0.0-7.0 % Basophils (%) (Auto) 1.1 0.0-2.0 % Neutrophils # (Auto) 4.3 1.6-8.6 10 ^3/uL Lymphocytes # (Auto) 1.6 0.4-5.4 10 ^3/uL Monocytes # (Auto) 1.1 0-1.3 10 ^3/uL Eosinophils # (Auto) 0.2 0-0.8 10 ^3/uL Basophils # (Auto) 0.1 0-0.2 10 ^3/uL Nucleated Red Blood Cells 0.1 % Sodium Level 142 136-145 mmol/L Potassium Level 4.4 3.5-5.1 mmol/L Chloride Level 106 98-107 mmol/L Carbon Dioxide Level 28 20-31 mmol/L Anion Gap 8 5-15 Blood Urea Nitrogen 33 H 9-23 mg/dL Creatinine 2.19 H 0.700-1.30 mg/dL Glomerular Filtration Rate Calc 36 >90 mL/min BUN/Creatinine Ratio 15.1 10.0-20.0 Serum Glucose 89 74-106 mg/dL Calcium Level 9.4 8.7-10.4 mg/dL Total Bilirubin 1.0 0.2-1.0 mg/dL Aspartate Amino Transferase (AST) 40 13-40 U/L Alanine Aminotransferase (ALT) 32 7-40 U/L Alkaline Phosphatase 215 H 46-116 U/L B-Type Natriuretic Peptide 2722.13 0-100 pg/mL Total Protein 6.7 5.7-8.2 g/dL Albumin 3.7 3.2-4.8 g/dL Urine Color Light-yellow Yellow Urine Clarity Clear Clear Urine pH 5.5 5.0-9.0 Urine Specific [place] 1.008 1.001-1.035 Urine Protein Negative Negative Urine Ketones Negative Negative Urine Blood Negative Negative /uL Urine Nitrite Negative Negative Urine Bilirubin Negative Negative Urine Urobilinogen Normal Negative mg/dL Urine Leukocyte Esterase Negative Negative /uL Urine RBC <1 0 - 3 /hpf Urine Microscopic WBC < 1 0-3 /HPF Urine Squamous Epithelial Cells None seen <5 /hpf Urine Bacteria Few H None Seen /hpf Urine Hyaline Casts Mod 0 - 2 /lpf Urine Glucose Normal Normal mg/dL PATIENT: LAQUITA CARROLL ACCT: [id number] UNIT: [id number] : 1975 LOC: ER ROOM / BED: / AGE / SEX: 49 / M ADM STATUS: REG ER SERVICE 1220 ORDERING PHYSICIAN: SANDEEP PERES CHECKERER HAND PROCEDURE(s): BLDVT - BiLat Lower DVT REASON: BLE pain/edema ORDER NUMBER(s): [id number], ACCESSION NUMBER(s): [id number] Bilateral lower extremity venous duplex Clinical History: BLE pain/edema Comparison: None Technique: Duplex Doppler evaluation of the deep venous systems of both lower extremities from the common femoral veins to the popliteal veins including color Doppler and spectral/pulsed waveform analysis was performed. Findings: RIGHT SIDE: The common femoral vein demonstrates appropriate compressibility and waveform variability. There is compressibility/patency of the great saphenous vein at the proximal thigh. The femoral vein demonstrates appropriate compressibility and waveform variabil ity. The deep femoral vein demonstrates appropriate compressibility and waveform variability. The popliteal vein demonstrates appropriate compressibility and waveform variability. There is normal compressibility at the tibioperoneal trunk. LEFT SIDE: The common femoral vein demonstrates appropriate compressibility and waveform variability. There is compressibility/patency of the great saphenous vein at the proximal thigh. The femoral vein demonstrates appropriate compressibility and waveform variability. The deep femoral vein demonstrates appropriate compressibility and waveform variability. The popliteal vein demonstrates appropriate compressibility and waveform variability. There is normal compressibility at the tibioperoneal trunk. Impression: No right or left femoropopliteal venous thrombosis. ORDERING PHYSICIAN: SANDEEP PERES NP PROCEDURE(s): CXR2 - CHEST TWO VIEWS ROUTINE REASON: R/o PNA, HF ORDER NUMBER(s): [id number], ACCESSION NUMBER(s): [id number] CHEST TWO VIEWS ROUTINE CLINICAL HISTORY: R/o PNA, HF COMPARISON: None TECHNIQUE: Frontal and lateral view of the chest was obtained FINDINGS: Lines and Tubes: None Lungs: No focal consolidation. Pleura: No effusion. No pneumothorax. Cardiomediastinal contours: Cardiomegaly. Bones: No acute osseous abnormality. IMPRESSION: Cardiomegaly with mild CHF. Assessment/Plan Assessment/Plan Acute exacerbation of congestive heart failure Cardiomegaly Chronic kidney disease, stage 3b Heart failure, unspecified CKD (chronic kidney disease) stage 3, GFR 30-59 ml/min Plan 1. Admit to telemetry unit 2. Breathing treatment 3. Pain control management 4. Management of fluids and electrolytes 5. Consultation for Cardiology 6. Diagnostic tests-chest x-ray 7. DVT prophylaxis-on aspirin 8. Repeat labs CBC, CMP in a.m. 9. Continue with current medical management 10. Treatment plan discussed with patient and RN. Patient verbalized understanding. Plan discussed with: Patient, Other (RN) My Orders Orders - MIGUEL DÍAZ DNP Procedure Category Date Status Time Aspirin Tablet PHA 09/04/24 In Process 10:00 Furosemide Injection PHA 09/04/24 In Process (Lasix Injection) 10:00 Carvedilol Tablet PHA 09/03/24 In Process (Coreg Tablet) 22:00 Atorvastatin (Lipitor) PHA 09/03/24 In Process 22:00 *Dr. [facility] CONS 09/03/24 Transmitted -[place] 18:33 * Cardiology Consult CONS 09/03/24 Transmitted 18:33 Allergies CALEB 09/03/24 In Process 18:33 Code Status CODE 09/03/24 Transmitted 18:33 Sodium Chloride Lock PHA 09/03/24 In Process (Saline Lock Ns) 22:00 Oxygen Per Hour RT 09/03/24 Transmitted 18:33 Hydrocodone-Acet PHA 09/03/24 In Process 5/325mg Tab ([place] 18:45 Ondansetron Hcl PHA 09/03/24 In Process (Zofran) 18:45 Docusate Sodium PHA 09/03/24 In Process Capsule (Colace 18:45 Complete Blood Count LAB 09/04/24 Verified 04:00 Comprehensive LAB 09/04/24 Verified Metabolic Panel 04:00 Cardiac DIET 09/04/24 Transmitted Diet-2gna,Lofat,Lochol Breakfast Condition: Serious CALEB 09/03/24 In Process 18:33 Acetaminophen Tablet [facility] 09/03/24 In Process (Tylenol Tablet) 18:45 Bedrest With Bathroom [place]EB 09/03/24 In Process Privileg 18:33 Sequential [facility] 09/03/24 In Process Compression Device Admit ADMIT 09/03/24 Verified 19:20 Nitroglycerin [facility] 09/03/24 Verified Sublingual (Ntrostat 19:30 Morphine Sulfate [facility] 09/03/24 Verified Injection 19:30 Stat Ekg For Chest [facility] 09/03/24 Verified Pain 19:20 Notify Md Of Changes [facility] 09/03/24 Verified From Base 19:20 Vending Attendant For [facility] 09/03/24 Verified 24 Hours 19:20 Emergency Dysrhythmia [facility] 09/03/24 Verified Protocol 19:20 Rhythm Strips Once [facility] 09/03/24 Verified Every Shift 19:20 Oxygen By Nasal 09/03/24 Verified Cannula 19:20 Problem List: (1) Acute exacerbation of congestive heart failure (2) Cardiomegaly (3) Chronic kidney disease, stage 3b (4) Heart failure, unspecified (5) CKD (chronic kidney disease) stage 3, GFR 30-59 ml/min Date of Service: Sep 03, 2024 Billing Provider: MIGUEL DÍAZ DNP Common Visit Codes: 28429-[id number] INP/OBS CARE (HIGH) MIGUEL DÍAZ DNP Sep 03, 2024 19:41
[2024-09-04] VITALS (9 sets, daily range): BP systolic 112–129; BP diastolic 64–91; PULSE 77–110; RESP 16–18; TEMP 97–98.3; O2SAT 95–99
[2024-09-04] MEDS: CARVEDILOL 3.125 MG TAB PO SCH (03:17)
[2024-09-04] MEDS: FAMOTIDINE (10MG/ML) 2ML VL IV ONE (03:22)
[2024-09-04] MEDS: ATORVASTATIN 20 MG TAB PO SCH (03:22)
[2024-09-04] MEDS: SODIUM CHLOR 0.9% PF (SALINE LOCK) 10ML VIAL/SYR IV SCH (03:22)
[2024-09-04 04:41] LABS: Hematocrit 41.3 % (41.0-53.0); Hemoglobin 13.2 g/dL (13.5-17.5); Mean Corpuscular Hemoglobin 28.4 pg (28.0-32.0); Mean Corpuscular Volume 89.1 fL (80.0-100.0); Nucleated Red Blood Cells % 0.1 %
[2024-09-04 04:42] LABS: Alanine Aminotransferase 34 U/L (7-40); Albumin 3.9 g/dL (3.2-4.8); Anion Gap 9 (5-15); BUN/Creatinine Ratio 16.8 (10.0-20.0); Bilirubin, Total 1.0 mg/dL (0.2-1.0); Carbon Dioxide 27 mmol/L (20-31); Glucose 85 mg/dL (74-106); Potassium 4.1 mmol/L (3.5-5.1); Sodium 143 mmol/L (136-145); Total Protein 7.0 g/dL (5.7-8.2)
[2024-09-04 04:59] LABS: Alkaline Phosphatase 249 U/L (46-116); Blood Urea Nitrogen 35 mg/dL (9-23); Calcium 8.6 mg/dL (8.7-10.4); Chloride 107 mmol/L (98-107)
--- NOTE | 2024-09-04 07:54 | ECG ---
[facility] Test Date: 2024-09-03 Test Time: 12:10:17 Pat Name: LAQUITA CARROLL Department: ER Room: 0284T B Gender: M Maintenance Person: GILDA : 1975 Requested By: SANDEEP PERES Order Number: [id number] Reading MD: Mynor Mcmahon Measurements Intervals [place] Rate: 97 P: 55 FL: 165 QRS: 77 QRSD: 106 T: -80 QT: 386 QTc: 491 Interpretive Statements Sinus rhythm Ventricular premature complex Consider left atrial enlargement RSR' in V1 or V2, probably normal variant Probable LVH with secondary repol abnrm Borderline prolonged QT interval Electronically Signed On 09-06-2024 18:57:37 PDT by Mynor Mcmahon Please click the below link to view image of tracing.
--- NOTE | 2024-09-04 09:29 | DVHCONRES ---
Date Seen: Sep 04, 2024 Resident Creating Document: ROB SPENCER RESIDENT Referring Physician ARJUN MATUTE History of Present Illness Mr. Dunlap is a 49-year-old male with systolic heart failure-EF 10-15%, CKD, hyperlipidemia, asthma who presented to the ER with a chief complaint of shortness of breaths and lower extremity swelling for 1 week. Patient was last hospitalized in this facility in February and was discharged on GDMT, he reports that he stopped taking Jardiance as it was making him feel weak. Patient developed lower extremity swelling which has been worsening for about a week, he reports shortness of breaths on exertion, dyspnea, PND. Reports taking 2 pillows under his head. Denies any abdominal or urinary symptoms. Does not follow up administrative services coordinator, but has a PCP. Reports last use methamphetamine was 2 days back. Past medical history: systolic heart failure-EF 10-15%, CKD, hyperlipidemia, asthma Home medications: Entresto, Lasix, Jardiance, spironolactone, Coreg Patient seen and examined at bedside. 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 Family History: Asthma G8 MOTHER Cerebrovascular accident (CVA) G8 FATHER FH: heart attack G8 FATHER Allergies: Coded Allergies: NO KNOWN ALLERGIES (Unverified , 08/25/10) Home Meds Active Scripts Levofloxacin Hemihydrate (LEVOFLOXACIN) 750 Mg Tab, 1 TAB PO DAILY, #5 TAB Prov:RICHARDSON FAGAN [facility] 03/16/24 Furosemide (Furosemide) 40 Mg Tab, 40 MG PO BID for 30 Days, #60 TAB Prov:RICHARDSON FAGAN [facility] 03/16/24 Spironolactone (Aldactone) 25 Mg Tab, 12.5 MG PO DAILY for 30 Days, #15 TAB Prov:RICHARDSON FAGAN [facility] 03/16/24 Acetaminophen (Acetaminophen) 325 Mg Tab, 650 MG PO Q6HP PRN for 30 Days, #240 TAB Prov:RICHARDSON FAGAN [facility] 03/16/24 Aspirin (Aspirin Low Dose) 81 Mg Tab, 81 MG PO DAILY for 30 Days, #30 TAB Prov:RICHARDSON FAGAN 03/16/24 Atorvastatin Calcium (ATORVASTATIN CALCIUM) 20 Mg Tab, 10 MG PO HS for 30 Days, #15 TAB Prov:RICHARDSON FAGAN [facility] 03/16/24 Carvedilol (COREG) 3.125 Mg Tab, 3.125 MG PO Q12HR for 30 Days, #60 TAB Prov:RICHARDSON FAGAN RESIDENT 03/16/24 Empagliflozin (Jardiance) 10 Mg Tab, 10 MG PO DAILY for 30 Days, #30 TAB Prov:RICHARDSON FAGAN RESIDENT 03/16/24 Sacubitril-Valsartan (Entresto 24-26 mg) 1 Tab Tab, 1 TAB PO BID for 30 Days, #60 TAB Prov:RICHARDSON FAGAN RESIDENT 03/16/24 Current Medications Current Medications Medications (Trade) Dose Ordered Sig/Wilder Route PRN Reason Start Time Stop Time Status Last Admin Aspirin 81 mg DAILY PO 09/04/24 10:00 Furosemide (Lasix Injection) 40 mg DAILY IV 09/04/24 10:00 09/04/24 09:26 DC Carvedilol (Coreg Tablet) 6.25 mg Q12HR PO 09/03/24 22:00 Atorvastatin Calcium (Lipitor) 20 mg HS PO 09/03/24 22:00 09/04/24 03:22 Sodium Chloride (Saline Lock Ns) 10 ml Q8HR IV 09/03/24 22:00 09/04/24 06:04 Acetaminophen/ Hydrocodone Bitart ([place] 5/325MG Tab) 1 tab Q4HP PRN PO MODERATE PAIN (4-6 PAIN SCALE) 09/03/24 18:45 Ondansetron HCl (Zofran) 4 mg Q4HP PRN IV NAUSEA / VOMITING 09/03/24 18:45 Docusate Sodium (Colace Capsule) 100 mg BIDPRN PRN PO FOR CONSTIPATION 09/03/24 18:45 Acetaminophen (Tylenol Tablet) 650 mg Q6HP PRN PO PAIN SCALE 1-3 OR TEMP>100.4 09/03/24 18:45 Nitroglycerin (Ntrostat Sublingual) 0.4 mg Q5MINP PRN SL FOR CHEST PAIN 09/03/24 19:30 Morphine Sulfate 2 mg Q30M PRN IV FOR CHEST PAIN 09/03/24 19:30 Furosemide (Lasix Injection) 40 mg BID IV 09/04/24 22:00 UNV Vital Signs Vital Signs Date Time Temp Pulse Resp B/P (MAP) Pulse Ox O2 Delivery O2 Flow Rate FiO2 09/04/24 05:00 97.0 77 17 129/64 (85) 98 97.0 09/04/24 04:10 Room Air* 0 21 Physical Exam Young male patient lying in the bed, no acute visible distress General: Well-built, afebrile, palor, mucosae are moist Cardiovascular: Regular S1 and S2. No murmurs, gallops or rubs. No JVD elevation. Bilateral 2+ pitting edema Respiratory: Bilateral expiratory wheezing heard on auscultation, inspiratory crackles. Abdomen: Soft, nontender, nondistended, normoactive bowel sounds, no rebound tenderness, no organomegaly, no masses Genitourinary: Deferred MSK/skin: Mobilizes 4 limbs. Skin is dry and warm Neurological: No motor, no sensitive deficits, normal speech. Pupils are isocoric and reactive. Psych/Mental Status: A/Ox3 Labs/Diagnostic Data Labs Test 09/04/24 03:39 09/03/24 12:54 09/03/24 12:20 Range/Units White Blood Count 6.8 4.4-10.8 10^3/uL Red Blood Count 4.64 4.5-5.90 10^6/uL Hemoglobin 13.2 L 13.5-17.5 g/dL Hematocrit 41.3 41.0-53.0 % Mean Corpuscular Volume 89.1 80.0-100.0 fL Mean Corpuscular Hemoglobin 28.4 28.0-32.0 pg Mean Corpuscular Hemoglobin Concent 31.9 L 32.0-36.0 g/dL Red Cell Distribution Width 20.4 H 11.8-14.3 % Platelet Count 232 140-450 10^3/uL Mean Platelet Volume 7.6 6.9-10.8 fL Neutrophils (%) (Auto) 55.8 37.0-80.0 % Lymphocytes (%) (Auto) 22.6 10.0-50.0 % Monocytes (%) (Auto) 16.6 H 0.0-12.0 % Eosinophils (%) (Auto) 4.3 0.0-7.0 % Basophils (%) (Auto) 0.7 0.0-2.0 % Neutrophils # (Auto) 3.8 1.6-8.6 10 ^3/uL Lymphocytes # (Auto) 1.5 0.4-5.4 10 ^3/uL Monocytes # (Auto) 1.1 0-1.3 10 ^3/uL Eosinophils # (Auto) 0.3 0-0.8 10 ^3/uL Basophils # (Auto) 0.1 0-0.2 10 ^3/uL Nucleated Red Blood Cells 0.1 % Sodium Level 143 136-145 mmol/L Potassium Level 4.1 3.5-5.1 mmol/L Chloride Level 107 98-107 mmol/L Carbon Dioxide Level 27 20-31 mmol/L Anion Gap 9 5-15 Blood Urea Nitrogen 35 H 9-23 mg/dL Creatinine 2.08 H 0.700-1.30 mg/dL Glomerular Filtration Rate Calc 39 >90 mL/min BUN/Creatinine Ratio 16.8 10.0-20.0 Serum Glucose 85 74-106 mg/dL Calcium Level 8.6 L 8.7-10.4 mg/dL Total Bilirubin 1.0 0.2-1.0 mg/dL Aspartate Amino Transferase (AST) 39 13-40 U/L Alanine Aminotransferase (ALT) 34 7-40 U/L Alkaline Phosphatase 249 H 46-116 U/L Total Protein 7.0 5.7-8.2 g/dL Albumin 3.9 3.2-4.8 g/dL B-Type Natriuretic Peptide 2722.13 0-100 pg/mL Urine Color Light-yellow Yellow Urine Clarity Clear Clear Urine pH 5.5 5.0-9.0 Urine Specific [place] 1.008 1.001-1.035 Urine Protein Negative Negative Urine Ketones Negative Negative Urine Blood Negative Negative /uL Urine Nitrite Negative Negative Urine Bilirubin Negative Negative Urine Urobilinogen Normal Negative mg/dL Urine Leukocyte Esterase Negative Negative /uL Urine RBC <1 0 - 3 /hpf Urine Microscopic WBC < 1 0-3 /HPF Urine Squamous Epithelial Cells None seen <5 /hpf Urine Bacteria Few H None Seen /hpf Urine Hyaline Casts Mod 0 - 2 /lpf Urine Glucose Normal Normal mg/dL Assessment Acute kidney injury superimposed on CKD3A in the setting of CHF exacerbation Acute on chronic systolic heart failure exacerbation-NYHA class 3 Pulmonary edema Methamphetamine use dependence Medication noncompliance Baseline BUN/creatinine/GFR is 30/03.46/59 as of February 2024 BNP 2700 Echo 02/2024 shows severely dilated LV, LVEF 10-15%, severe MR and TR, pulmonary artery systolic pressure 74 Plan: Continue diuresis as tolerated with Lasix 40 mg IV b.i.d. Resume Jardiance Hold Entresto and spironolactone at this time Strict I&Os, cardiac and renal specific diet, maintain fluid restrictions Follow up with the urine electrolytes Strongly counseled regarding methamphetamine cessation continue to follow up Plan discussed with patient , primary team in which all questions have been answered Case discussed with Dr. Nixon Addendum Patient seen and examined, plan discussed with resident. Agree with above, we will follow closely Plan discussed with: Patient ROB SPENCER RESIDENT Sep 04, 2024 09:29 JENNIFER NIXON MD Sep 04, 2024 18:31
[2024-09-04] MEDS ORDERED: FUROSEMIDE 40 MG/4 ML VIAL IV SCH (10:00)
[2024-09-04] MEDS: FUROSEMIDE 100 MG/10ML VIAL IV ONE (10:10)
--- NOTE | 2024-09-04 13:04 | DVHINCON2 ---
Date Seen: Sep 04, 2024 Referring Physician GIOVANI Proctor Reason for Consultation CHF History of Present Illness This is a 49-year-old man who presented to the emergency room with a chief complaint of bilateral lower extremity edema for one week. The patient complains of progressive bilateral lower extremity edema associated with shortness of breath associated, PND, MIRANDA, and orthopnea. Denies chest pain, palpitations, diaphoresis, or syncopal events. He increased his Lasix dosage to 120mg qd for four days with no improvement in symptoms and prompting him to seek further medical attention. He also takes Coreg at home but ran out of Jardiance a few months back. He underwent a 12 lead electrocardiogram revealing a sinus rhythm with global T-wave inversion and suggestive of left ventricular hyper trophy. Of note, the patient was diagnosed with a nonischemic cardiomyopathy approximately three years ago at [facility] undergoing a cardiac catheterization without catheter based intervention given no coronary artery disease. Somehow the patient has failed to continue to follow up with a primary fixed wing aircraft flight engineer. Admits to recent methamphetamine use two days ago. Significant medical history includes nonischemic/drug-induced cardiomyopathy, hypertension, asthma, tobacco and methamphetamine use. Past Medical History Past medical history reviewed. No other significant than mentioned above. Past Surgical History Past surgical history reviewed. No other significant than mentioned above. Family History: Asthma G8 MOTHER Cerebrovascular accident (CVA) G8 FATHER FH: heart attack G8 FATHER Family History Family history reviewed. Social History Denies the use of alcohol. Admits to tobacco and methamphetamine use. Smokes one pack of cigarettes per day. Allergies: Coded Allergies: NO KNOWN ALLERGIES (Unverified , 08/25/10) Home Meds Active Scripts Levofloxacin Hemihydrate (LEVOFLOXACIN) 750 Mg Tab, 1 TAB PO DAILY, #5 TAB Prov:RICHARDSON FAGAN 03/16/24 Furosemide (Furosemide) 40 Mg Tab, 40 MG PO BID for 30 Days, #60 TAB Prov:RICHARDSON FAGAN 03/16/24 Spironolactone (Aldactone) 25 Mg Tab, 12.5 MG PO DAILY for 30 Days, #15 TAB Prov:RICHARDSON FAGAN 03/16/24 Acetaminophen (Acetaminophen) 325 Mg Tab, 650 MG PO Q6HP PRN for 30 Days, #240 TAB Prov:RICHARDSON FAGAN 03/16/24 Aspirin (Aspirin Low Dose) 81 Mg Tab, 81 MG PO DAILY for 30 Days, #30 TAB Prov:RICHARDSON FAGAN RESIDENT 03/16/24 Atorvastatin Calcium (ATORVASTATIN CALCIUM) 20 Mg Tab, 10 MG PO HS for 30 Days, #15 TAB Prov:RICHARDSON FAGAN RESIDENT 03/16/24 Carvedilol (COREG) 3.125 Mg Tab, 3.125 MG PO Q12HR for 30 Days, #60 TAB Prov:RICHARDSON FAGAN 03/16/24 Empagliflozin (Jardiance) 10 Mg Tab, 10 MG PO DAILY for 30 Days, #30 TAB Prov:RICHARDSON FAGAN RESIDENT 03/16/24 Sacubitril-Valsartan (Entresto 24-26 mg) 1 Tab Tab, 1 TAB PO BID for 30 Days, #60 TAB Prov:RICHARDSON FAGAN RESIDENT 03/16/24 Home Meds Home medications reviewed. Current Medications Current Medications Medications (Trade) Dose Ordered Sig/Wilder Route PRN Reason Start Time Stop Time Status Last Admin Aspirin 81 mg DAILY PO 09/04/24 10:00 09/04/24 10:10 Furosemide (Lasix Injection) 40 mg DAILY IV 09/04/24 10:00 09/04/24 09:26 DC Carvedilol (Coreg Tablet) 6.25 mg Q12HR PO 09/03/24 22:00 09/04/24 10:10 Atorvastatin Calcium (Lipitor) 20 mg HS PO 09/03/24 22:00 09/04/24 03:22 Sodium Chloride (Saline Lock Ns) 10 ml Q8HR IV 09/03/24 22:00 09/04/24 06:04 Acetaminophen/ Hydrocodone Bitart ([place] 5/325MG Tab) 1 tab Q4HP PRN PO MODERATE PAIN (4-6 PAIN SCALE) 09/03/24 18:45 Ondansetron HCl (Zofran) 4 mg Q4HP PRN IV NAUSEA / VOMITING 09/03/24 18:45 Docusate Sodium (Colace Capsule) 100 mg BIDPRN PRN PO FOR CONSTIPATION 09/03/24 18:45 Acetaminophen (Tylenol Tablet) 650 mg Q6HP PRN PO PAIN SCALE 1-3 OR TEMP>100.4 09/03/24 18:45 Nitroglycerin (Ntrostat Sublingual) 0.4 mg Q5MINP PRN SL FOR CHEST PAIN 09/03/24 19:30 Morphine Sulfate 2 mg Q30M PRN IV FOR CHEST PAIN 09/03/24 19:30 Furosemide (Lasix Injection) 40 mg BIDD IV 09/04/24 22:00 Review of Systems Constitutional: No symptom reported Ears, Nose, & Throat: No symptom reported Eyes: No symptom reported Neurological: No symptoms reported Pulmonary/Respiratory: SOB, PND, MIRANDA, orthopnea Cardiovascular: BLE edema Gastrointestinal: No symptom reported Genitourinary: No symptom reported Musculoskeletal: No symptom reported Skin: No symptom reported Psychiatric: No symptom reported Endocrine: No symptom reported Hemotologic/Lymphatic: No symptom reported Vital Signs Vital Signs Date Time Temp Pulse Resp B/P (MAP) Pulse Ox O2 Delivery O2 Flow Rate FiO2 09/04/24 12:20 102 122/89 09/04/24 09:00 98.2 18 95 98.2 09/04/24 08:00 Room Air* 0 21 Physical Exam General Appearance: Cooperative. Well developed. Well nourished. Mild acute distress Head Exam: Normal inspection Neck Exam: Normal inspection. Non-tender. Normal alignment Pulmonary/Respiratory: Chest non-tender. Crackles still bilateral breath sounds Cardiovascular/Chest: Regular rate and rhythm. S1, S2. Sinus rhythm with global T-wave inversion, LVH. No murmurs. + JVD. Peripheral Pulses: 2+ Radial (R). 2+ Radial (L). 2+ Pedal (R). 2+ Pedal (L) Abdominal Exam: Normal bowel sounds. Soft. Nontender. No hepatospenomegaly. No masses Ankle Exam: Positive ankle edema 3+ Lower extremities: Positive lower extremity edema 3+ Neuro/Mental Status: A&O x4. Coherent Thoughts/Psych: Normal thought pattern. Appropriate mood and affect. Good judgement and insight Appearance: Mild acute distress Skin Exam: Normal inspection. Normal color. Warm. Dry Labs/Diagnostic Data Labs Test 09/04/24 09:28 09/04/24 09:27 09/04/24 03:39 09/03/24 12:54 Range/Units Parathyroid Hormone (Intact) 127.7 H 18.4-80.1 pg/mL Hemoglobin A1c 6.1 H <5.7 % A1C White Blood Count 6.8 4.4-10.8 10^3/uL Red Blood Count 4.64 4.5-5.90 10^6/uL Hemoglobin 13.2 L 13.5-17.5 g/dL Hematocrit 41.3 41.0-53.0 % Mean Corpuscular Volume 89.1 80.0-100.0 fL Mean Corpuscular Hemoglobin 28.4 28.0-32.0 pg Mean Corpuscular Hemoglobin Concent 31.9 L 32.0-36.0 g/dL Red Cell Distribution Width 20.4 H 11.8-14.3 % Platelet Count 232 140-450 10^3/uL Mean Platelet Volume 7.6 6.9-10.8 fL Neutrophils (%) (Auto) 55.8 37.0-80.0 % Lymphocytes (%) (Auto) 22.6 10.0-50.0 % Monocytes (%) (Auto) 16.6 H 0.0-12.0 % Eosinophils (%) (Auto) 4.3 0.0-7.0 % Basophils (%) (Auto) 0.7 0.0-2.0 % Neutrophils # (Auto) 3.8 1.6-8.6 10 ^3/uL Lymphocytes # (Auto) 1.5 0.4-5.4 10 ^3/uL Monocytes # (Auto) 1.1 0-1.3 10 ^3/uL Eosinophils # (Auto) 0.3 0-0.8 10 ^3/uL Basophils # (Auto) 0.1 0-0.2 10 ^3/uL Nucleated Red Blood Cells 0.1 % Sodium Level 143 136-145 mmol/L Potassium Level 4.1 3.5-5.1 mmol/L Chloride Level 107 98-107 mmol/L Carbon Dioxide Level 27 20-31 mmol/L Anion Gap 9 5-15 Blood Urea Nitrogen 35 H 9-23 mg/dL Creatinine 2.08 H 0.700-1.30 mg/dL Glomerular Filtration Rate Calc 39 >90 mL/min BUN/Creatinine Ratio 16.8 10.0-20.0 Serum Glucose 85 74-106 mg/dL Calcium Level 8.6 L 8.7-10.4 mg/dL Magnesium Level 2.6 1.6-2.6 mg/dL Total Bilirubin 1.0 0.2-1.0 mg/dL Aspartate Amino Transferase (AST) 39 13-40 U/L Alanine Aminotransferase (ALT) 34 7-40 U/L Alkaline Phosphatase 249 H 46-116 U/L Total Protein 7.0 5.7-8.2 g/dL Albumin 3.9 3.2-4.8 g/dL Vitamin D 25-Hydroxy 58.4 30.0-100 ng/mL Thyroid Stimulating Hormone (TSH) 2.94 0.55-4.78 uIU/mL B-Type Natriuretic Peptide 2722.13 0-100 pg/mL Test 09/03/24 12:20 Range/Units Urine Color Light-yellow Yellow Urine Clarity Clear Clear Urine pH 5.5 5.0-9.0 Urine Specific [place] 1.008 1.001-1.035 Urine Protein Negative Negative Urine Ketones Negative Negative Urine Blood Negative Negative /uL Urine Nitrite Negative Negative Urine Bilirubin Negative Negative Urine Urobilinogen Normal Negative mg/dL Urine Leukocyte Esterase Negative Negative /uL Urine RBC <1 0 - 3 /hpf Urine Microscopic WBC < 1 0-3 /HPF Urine Squamous Epithelial Cells None seen <5 /hpf Urine Bacteria Few H None Seen /hpf Urine Hyaline Casts Mod 0 - 2 /lpf Urine Glucose Normal Normal mg/dL Assessment Acute on chronic decompensated HFrEF, NYHA Class IV Nonischemic/drug-induced/dilated cardiomyopathy Biventricular heart failure Mitral valve/tricuspid valve regurgitation, severe degree Acute kidney injury on chronic kidney disease Prediabetes, newly diagnosed Methamphetamine/tobacco use Suboptimal medical therapy Medical noncompliance Plan/Recommendation (Dr. Parsons) The patient presents with an acute exacerbation of congestive heart failure. A transthoracic echocardiogram revealed an EF of 10-15% with severely dilated left/right ventricle, severe mitral/tricuspid regurgitation and PA pressures at 74 mmHg. Initiate dobutamine drip for inotropic support and continue diuresis along with strict I&Os, daily weight, and fluid restrictions. Initiate GDMT for CHF once renal function permits. Hold BB while on dobutamine drip. The patient can benefit from outpatient Mitraclip/Triclip interventions. Not a candidate at this time given poor medical compliance and drug abuse. Strongly counseled on risk factor modifications including medical compliance and methamphe tamine/tobacco use cessation. Follow-up with a primary fixed wing aircraft flight engineer within 3-4 weeks post discharge. Continue nephrology recommendations. Initiate DVT/VTE prophylaxis. Rest of plan per clinical course. Thank you for allowing us to participate in this patient's care. This medical document was created using an electronic medical record system with voice recognition software and computerized dictation system. Although this document has been carefully reviewed, there might still be some phonetic and typographical errors. Occasional wrong-word or ``sound-alike substitutions may have occurred due to the inherent limitations of voice recognition software. These areas are purely typographical due to imperfections of the software programs and do not reflect any compromise in the patient's medical care. Please read the chart carefully and recognize, using context, where these substitutions have occurred. Plan discussed with: Patient, Other NYHA Physical activity limitations: Class4(Severe)discomfort (w any activit,symptoms at rest) Date of Service: Sep 04, 2024 Billing Provider: MARTHA CRAFT Cardiology Common Codes: [id number] INP/OBS CARE (High) MARTHA CRAFT Sep 04, 2024 13:04
--- NOTE | 2024-09-04 16:19 | DVHPNRES ---
Progress Note Date Seen: Sep 04, 2024 Resident Creating Document: JAMES PEREZ RESIDENT Medical Necessity Reason Pt with a Central, PICC or Fol: No Subjective Review of Systems His 49-year-old male with past medical history of CHF, asthma, hypertension, and hyperlipidemia presented to the ED with complaints of bilateral lower extremity edema. The edema develops gradually over your of 1 week. The Lasix failed to resolve the edema. The patient also reports shortness of breath with walking. He can do his activities of daily living without getting shortness of breath. He has no associated chest pain, fever, chills or any other complaints at this time. Past Medical History Asthma, CHF, HTN, HLD Past Surgical History Denies all surgeries Family History Father had a heart attack at the age of 35. Mother had cardiac disease at age of 60. Past Social History The patient lives at home, smokes cigarettes greater than 1 pack per day, denies alcohol use, uses methamphetamine, last use 2 days ago. Review of systems The patient was seen and examined at the bedside. ROS as per HPI. No new complaints reported. Rest of the ROS is negative. Objective vital signs Vital Sign Date Time Temp Pulse Resp B/P (MAP) Pulse Ox O2 Delivery O2 Flow Rate FiO2 09/04/24 13:00 98.1 98 17 116/79 (91) 98 98.1 09/04/24 08:00 Room Air* 0 21 Total Intake and Output 09/03/24 09/03/24 09/04/24 15:00 23:00 07:00 Intake Total 0 ml Balance 0 ml medications Current Medications Medications Dose Ordered Sig/Wilder Route Start Time Stop Time Status Last Admin Dose Admin Atorvastatin Calcium 20 mg HS PO 09/03/24 22:00 09/04/24 03:22 20 MG Sodium Chloride 10 ml Q8HR IV 09/03/24 22:00 09/04/24 14:33 10 ML Acetaminophen/ Hydrocodone Bitart 1 tab Q4HP PRN PO 09/03/24 18:45 Ondansetron HCl 4 mg Q4HP PRN IV 09/03/24 18:45 Docusate Sodium 100 mg BIDPRN PRN PO 09/03/24 18:45 Acetaminophen 650 mg Q6HP PRN PO 09/03/24 18:45 Nitroglycerin 0.4 mg Q5MINP PRN SL 09/03/24 19:30 Morphine Sulfate 2 mg Q30M PRN IV 09/03/24 19:30 Furosemide 40 mg BIDD IV 09/04/24 22:00 Dobutamine HCl/ Dextrose 250 ml @ 10.5 mls/hr [id number] IV 09/04/24 13:15 Enoxaparin Sodium 40 mg DAILY SC 09/05/24 10:00 Empaglifozin 10 mg DAILY PO 09/04/24 14:45 Examination Pt is lying on bed General Appearance: Alert, Oriented X3, Cooperative, Mild distress HEENT: Atraumatic, Mucous membranes moist/pink Respiratory: Rhonchi and crackles present, Normal air movement, No added sounds Cardiovascular: Regular rate, Normal S1, Normal S2, No murmurs Abdominal/ : Active bowel sounds, Soft, no distention, no tenderness Extremities: Bilateral lower extremity edema, Normal pulses, No tenderness/swelling Skin: No Significant rash, except past surgical scars Neuro: Normal speech, sensorimotor deficits none Psych/Mental Status: Mental status NL, Mood NL Nurse was there as decision analyst during examination laboratory and microbiology Laboratory Tests 09/04/24 03:39 Test 09/04/24 03:39 Range/Units Serum Glucose 85 74-106 mg/dL Labs and/or images reviewed: Labs reviewed by me, Image(s) reviewed by me Problem List/Assessment/Plan Problem List/Assessment/Plan Acute on chronic decompensated HFrEF, NYHA Class IV, Biventricular heart failure Nonischemic/drug-induced/dilated cardiomyopathy Mitral valve/tricuspid valve regurgitation, severe degree Medication nonadherence Methamphetamine abuse -Monitor in telemetry -strict I&Os, daily weight, and fluid restrictions. -Initiate GDMT for CHF once renal function permits. Hold BB while on dobutamine drip. -IV Lasix -Carvedilol -atorvastatin -Aspirin -Echo showsEF of 10-15% with severely dilated left/right ventricle, severe mitral/tricuspid regurgitation and PA pressures at 74 mmHg -Cardiology was consulted , advised to initiate dobutamine drip for inotropic support and diuresis along with -The patient can benefit from outpatient Mitraclip/Triclip interventions. - Strongly counseled on risk factor modifications including medical compliance and methamphetamine/tobacco use cessation. - Follow-up with a primary fabric lay out worker within 3-4 weeks post discharge JATIN likely VMN CKD (chronic kidney disease) stage 3, GFR 30-59 ml/min - Nephrology consult: advised to continue diuresis, hold Entresto and spironolactone at this time along with a strict I&Os - Follow up with the urine electrolytes - Strongly counseled regarding methamphetamine cessation - Continue to follow up GI PPX: Famotidine VTE PPX: Lovenox Diet: cardiac diet Goals of care discussed with the patient for more than 27 minutes: Full Code status Case discussed with Dr. Murray, patient and nurse Plan discussed with: Patient Date of Service: Sep 04, 2024 Billing Provider: TOSHA MURRAY MD Common Visit Codes: [id number] INP/OBS CARE(HIGH) JAMES PEREZ RESIDENT Sep 04, 2024 16:19 NAILA NIEVES RESIDENT Sep 04, 2024 17:25 TOSHA MURRAY MD Sep 04, 2024 23:42
[2024-09-04] MEDS: EMPAGLIFLOZIN 10 MG TAB PO SCH (17:17)
[2024-09-04] MEDS: DOBUTamine 1000MCG/ML 250 ML IV SCH (17:20)
[2024-09-04 18:11] LABS: Protein, Urine 6.7 mg/dL (1-14)
[2024-09-04 18:14] LABS: Amphetamine Screen, Urine Pos (NEGATIVE); Barbiturate Scree,Urine Neg (NEGATIVE); Benzodiazephine Screen, Urine Neg (NEGATIVE); Cannabinoid Screen, Urine Neg (NEGATIVE); Cocaine Screen, Urine Neg (NEGATIVE); Opiate Scree,Urine Neg (NEGATIVE); Phencyclidine Screen, Urine Neg (NEGATIVE)
[2024-09-04] MEDS: FUROSEMIDE 40 MG/4 ML VIAL IV SCH (22:30)
--- NOTE | 2024-09-04 23:20 | DVHINCON2 ---
Date Seen: Sep 04, 2024 Referring Physician GIOVANI Proctor Reason for Consultation CHF History of Present Illness This is a 49-year-old male with a PMH of nonischemic/drug-induced cardiomyopathy, hypertension, asthma, tobacco and methamphetamine use who presented to the ED with complaints of bilateral lower extremity edema for one week. The patient complains of progressive bilateral lower extremity edema associated with shortness of breath associated, PND, MIRANDA, and orthopnea. Denies chest pain, palpitations, diaphoresis, or syncopal events. He increased his Lasix dosage to 120mg qd for four days with no improvement in symptoms and prompting him to seek further medical attention. He also takes Coreg at home but ran out of Jardiance a few months back. He underwent a 12 lead electrocardiogram revealing a sinus rhythm with global T-wave inversion and suggestive of left ventricular hypertrophy. Of note, the patient was diagnosed with a nonischemic cardiomyopathy approximately three years ago at [facility] undergoing a cardiac catheterization without catheter based intervention given no coronary artery disease. Somehow the patient has failed to continue to follow up with a primary resource specialist teacher. Admits to recent methamphetamine use two days ago. Patient was admitted to the hospital. I am asked to consult on this patient. Past Medical History Past medical history reviewed. No other significant than mentioned above. Past Surgical History Past surgical history reviewed. No other significant than mentioned above. Family History: Asthma G8 MOTHER Cerebrovascular accident (CVA) G8 FATHER FH: heart attack G8 FATHER Allergies: Coded Allergies: NO KNOWN ALLERGIES (Unverified , 08/25/10) Home Meds Active Scripts Levofloxacin Hemihydrate (LEVOFLOXACIN) 750 Mg Tab, 1 TAB PO DAILY, #5 TAB Prov:RICHARDSON FAGAN RESIDENT 03/16/24 Furosemide (Furosemide) 40 Mg Tab, 40 MG PO BID for 30 Days, #60 TAB Prov:RICHARDSON FAGAN 03/16/24 Spironolactone (Aldactone) 25 Mg Tab, 12.5 MG PO DAILY for 30 Days, #15 TAB Prov:RICHARDSON FAGAN 03/16/24 Acetaminophen (Acetaminophen) 325 Mg Tab, 650 MG PO Q6HP PRN for 30 Days, #240 TAB Prov:RICHARDSON FAGAN 03/16/24 Aspirin (Aspirin Low Dose) 81 Mg Tab, 81 MG PO DAILY for 30 Days, #30 TAB Prov:RICHARDSON FAGAN 03/16/24 Atorvastatin Calcium (ATORVASTATIN CALCIUM) 20 Mg Tab, 10 MG PO HS for 30 Days, #15 TAB Prov:RICHARDSON FAGAN 03/16/24 Carvedilol (COREG) 3.125 Mg Tab, 3.125 MG PO Q12HR for 30 Days, #60 TAB Prov:RICHARDSON AFGAN 03/16/24 Empagliflozin (Jardiance) 10 Mg Tab, 10 MG PO DAILY for 30 Days, #30 TAB Prov:RICHARDSON FAGAN 03/16/24 Sacubitril-Valsartan (Entresto 24-26 mg) 1 Tab Tab, 1 TAB PO BID for 30 Days, #60 TAB Prov:RICHARDSON FAGAN 03/16/24 Current Medications Current Medications Medications (Trade) Dose Ordered Sig/Wilder Route PRN Reason Start Time Stop Time Status Last Admin Aspirin 81 mg DAILY PO 09/04/24 10:00 09/04/24 13:54 DC 09/04/24 10:10 Furosemide (Lasix Injection) 40 mg DAILY IV 09/04/24 10:00 09/04/24 09:26 DC Furosemide (Lasix Injection) 40 mg BIDD IV 09/04/24 22:00 09/04/24 22:30 Dobutamine HCl/ Dextrose 250 ml @ 10.5 mls/hr [id number] IV 09/04/24 13:15 09/04/24 17:20 Enoxaparin Sodium (Lovenox) 40 mg DAILY SC 09/05/24 10:00 Empaglifozin (Jardiance) 10 mg DAILY PO 09/04/24 14:45 09/04/24 17:17 Review of Systems Constitutional: No symptom reported Ears, Nose, & Throat: No symptom reported Eyes: No symptom reported Neurological: No symptoms reported Pulmonary/Respiratory: SOB, PND, MIRANDA, orthopnea Cardiovascular: BLE edema Gastrointestinal: No symptom reported Genitourinary: No symptom reported Musculoskeletal: No symptom reported Skin: No symptom reported Psychiatric: No symptom reported Endocrine: No symptom reported Hemotologic/Lymphatic: No symptom reported Vital Signs Vital Signs Date Time Temp Pulse Resp B/P (MAP) Pulse Ox O2 Delivery O2 Flow Rate FiO2 09/04/24 22:30 112/91 09/04/24 21:00 97.8 89 16 97 97.8 09/04/24 08:00 Room Air* 0 21 Physical Exam GENERAL: Alert and oriented x 3. No acute distress. EYES: PERRL, EOMI. Anicteric. HENT: Moist mucous membranes. LUNGS: Diminished breath sounds. CARDIOVASCULAR: Regular rate and rhythm. ABDOMEN: Soft, non-tender and non-distended. EXTREMITIES: 3+ BLE edema. NEUROLOGIC: No focal neurological deficits. SKIN: Warm, dry. Labs/Diagnostic Data Labs Test 09/04/24 17:00 09/04/24 09:28 09/04/24 09:27 09/04/24 03:39 Range/Units Urine Creatinine 35.81 30.0-125.0 mg/dL Urine Protein/Creatinine Ratio 0.19 Urine Sodium 102 40-220 mmol/L Urine Total Protein 6.7 1-14 mg/dL Urine Opiates Screen Neg NEGATIVE Urine Fentanyl Screen Neg NEGATIVE Urine Barbiturates Screen Neg NEGATIVE Urine Phencyclidine Screen Neg NEGATIVE Urine Amphetamines Screen Pos NEGATIVE Urine Benzodiazepines Screen Neg NEGATIVE Urine Cocaine Screen Neg NEGATIVE Urine Cannabinoids Screen Neg NEGATIVE Parathyroid Hormone (Intact) 127.7 H 18.4-80.1 pg/mL Hemoglobin A1c 6.1 H <5.7 % A1C White Blood Count 6.8 4.4-10.8 10^3/uL Red Blood Count 4.64 4.5-5.90 10^6/uL Hemoglobin 13.2 L 13.5-17.5 g/dL Hematocrit 41.3 41.0-53.0 % Mean Corpuscular Volume 89.1 80.0-100.0 fL Mean Corpuscular Hemoglobin 28.4 28.0-32.0 pg Mean Corpuscular Hemoglobin Concent 31.9 L 32.0-36.0 g/dL Red Cell Distribution Width 20.4 H 11.8-14.3 % Platelet Count 232 140-450 10^3/uL Mean Platelet Volume 7.6 6.9-10.8 fL Neutrophils (%) (Auto) 55.8 37.0-80.0 % Lymphocytes (%) (Auto) 22.6 10.0-50.0 % Monocytes (%) (Auto) 16.6 H 0.0-12.0 % Eosinophils (%) (Auto) 4.3 0.0-7.0 % Basophils (%) (Auto) 0.7 0.0-2.0 % Neutrophils # (Auto) 3.8 1.6-8.6 10 ^3/uL Lymphocytes # (Auto) 1.5 0.4-5.4 10 ^3/uL Monocytes # (Auto) 1.1 0-1.3 10 ^3/uL Eosinophils # (Auto) 0.3 0-0.8 10 ^3/uL Basophils # (Auto) 0.1 0-0.2 10 ^3/uL Nucleated Red Blood Cells 0.1 % Sodium Level 143 136-145 mmol/L Potassium Level 4.1 3.5-5.1 mmol/L Chloride Level 107 98-107 mmol/L Carbon Dioxide Level 27 20-31 mmol/L Anion Gap 9 5-15 Blood Urea Nitrogen 35 H 9-23 mg/dL Creatinine 2.08 H 0.700-1.30 mg/dL Glomerular Filtration Rate Calc 39 >90 mL/min BUN/Creatinine Ratio 16.8 10.0-20.0 Serum Glucose 85 74-106 mg/dL Calcium Level 8.6 L 8.7-10.4 mg/dL Magnesium Level 2.6 1.6-2.6 mg/dL Total Bilirubin 1.0 0.2-1.0 mg/dL Aspartate Amino Transferase (AST) 39 13-40 U/L Alanine Aminotransferase (ALT) 34 7-40 U/L Alkaline Phosphatase 249 H 46-116 U/L Total Protein 7.0 5.7-8.2 g/dL Albumin 3.9 3.2-4.8 g/dL Vitamin D 25-Hydroxy 58.4 30.0-100 ng/mL Thyroid Stimulating Hormone (TSH) 2.94 0.55-4.78 uIU/mL Test 09/03/24 12:54 09/03/24 12:20 Range/Units B-Type Natriuretic Peptide 2722.13 0-100 pg/mL Urine Color Light-yellow Yellow Urine Clarity Clear Clear Urine pH 5.5 5.0-9.0 Urine Specific [place] 1.008 1.001-1.035 Urine Protein Negative Negative Urine Ketones Negative Negative Urine Blood Negative Negative /uL Urine Nitrite Negative Negative Urine Bilirubin Negative Negative Urine Urobilinogen Normal Negative mg/dL Urine Leukocyte Esterase Negative Negative /uL Urine RBC <1 0 - 3 /hpf Urine Microscopic WBC < 1 0-3 /HPF Urine Squamous Epithelial Cells None seen <5 /hpf Urine Bacteria Few H None Seen /hpf Urine Hyaline Casts Mod 0 - 2 /lpf Urine Glucose Normal Normal mg/dL Assessment Acute on chronic decompensated HFrEF, NYHA Class IV. Nonischemic/drug-induced/dilated cardiomyopathy. Biventricular heart failure. Mitral valve/tricuspid valve regurgitation, severe degree. Acute kidney injury on chronic kidney disease. Prediabetes, newly diagnosed. Methamphetamine/tobacco use. Suboptimal medical therapy. Medical noncompliance. Plan/Recommendation I agree with your ongoing assessment and care of plan. Patient has been seen by Yue May NP on my behalf. We have discussed the plan with the patient. Telemetry reviewed. The patient presents with an acute exacerbation of congestive heart failure. A transthoracic echocardiogram revealed an EF of 10-15% with severely dilated left/right ventricle, severe mitral/tricuspid regurgitation and PA pressures at 74 mmHg. Initiate dobutamine drip for inotropic support and continue diuresis along with strict I&Os, daily weight, and fluid restrictions. Initiate GDMT for CHF once renal function permits. Hold BB while on dobutamine drip. The patient can benefit from outpatient Mitraclip/Triclip interventions. Not a candidate at this time given poor medical compliance and drug abuse. Strongly counseled on risk factor modifications including medical compliance and methamphetamine/tobacco use cessation. Follow-up with a primary resource specialist teacher within 3-4 weeks post discharge. Continue nephrology recommendations. Initiate DVT/VTE prophylaxis. Rest of plan per clinical course. Additional plan as per the hospital course. Plan discussed with: Patient NYHA Physical activity limitations: Class4(Severe)discomfort Date of Service: Sep 04, 2024 Billing Provider: MARY LOU LOPEZ MD Cardiology Common Codes: [id number] INP/OBS CARE (High) MARY LOU LOPEZ MD Sep 04, 2024 23:20
[2024-09-05] VITALS (8 sets, daily range): BP systolic 103–122; BP diastolic 72–82; PULSE 72–104; RESP 18–20; TEMP 97.5–98.1; O2SAT 95–97
[2024-09-05 06:41] LABS: Hematocrit 39.3 % (41.0-53.0); Hemoglobin 12.8 g/dL (13.5-17.5); Mean Corpuscular Hemoglobin 28.5 pg (28.0-32.0); Mean Corpuscular Volume 87.2 fL (80.0-100.0); Nucleated Red Blood Cells % 0.1 %
[2024-09-05 07:02] LABS: Alanine Aminotransferase 30 U/L (7-40); Anion Gap 10 (5-15); BUN/Creatinine Ratio 17.7 (10.0-20.0); Carbon Dioxide 26 mmol/L (20-31); Chloride 105 mmol/L (98-107); Glucose 97 mg/dL (74-106); Potassium 4.0 mmol/L (3.5-5.1); Sodium 141 mmol/L (136-145); Total Protein 6.5 g/dL (5.7-8.2)
[2024-09-05 07:04] LABS: Albumin 3.6 g/dL (3.2-4.8)
[2024-09-05 07:07] LABS: Alkaline Phosphatase 180 U/L (46-116); Bilirubin, Total 1.5 mg/dL (0.2-1.0); Blood Urea Nitrogen 37 mg/dL (9-23); Calcium 8.6 mg/dL (8.7-10.4)
[2024-09-05] MEDS: ENOXAPARIN SOD 40 MG/0.4 ML SYRINGE SC SCH (10:17)
--- NOTE | 2024-09-05 14:17 | DVHPN2 ---
Consult Progress Note Date Seen: Sep 05, 2024 Subjective Patient reports: Feels better Review of Systems: CVS:Normal, RESPIRATORY:Normal, NEURO:Normal Objective vital signs Vital Sign Date Time Temp Pulse Resp B/P (MAP) Pulse Ox O2 Delivery O2 Flow Rate FiO2 09/05/24 12:56 97.9 72 18 116/81 (93) 97 97.9 09/05/24 08:00 Room Air* 0 21 Total Intake and Output 09/04/24 09/04/24 09/05/24 15:00 23:00 07:00 Intake Total 510.5 ml 240 ml Output Total 725 ml 2000 ml Balance -214.5 ml -1760 ml medications Current Medications Medications Dose Ordered Sig/Wilder Route Start Time Stop Time Status Last Admin Dose Admin Atorvastatin Calcium 20 mg HS PO 09/03/24 22:00 09/04/24 22:29 20 MG Sodium Chloride 10 ml Q8HR IV 09/03/24 22:00 09/05/24 05:50 10 ML Acetaminophen/ Hydrocodone Bitart 1 tab Q4HP PRN PO 09/03/24 18:45 Ondansetron HCl 4 mg Q4HP PRN IV 09/03/24 18:45 Docusate Sodium 100 mg BIDPRN PRN PO 09/03/24 18:45 Acetaminophen 650 mg Q6HP PRN PO 09/03/24 18:45 Nitroglycerin 0.4 mg Q5MINP PRN SL 09/03/24 19:30 Morphine Sulfate 2 mg Q30M PRN IV 09/03/24 19:30 Furosemide 40 mg BIDD IV 09/04/24 22:00 09/05/24 05:50 40 MG Dobutamine HCl/ Dextrose 250 ml @ 10.5 mls/hr [id number] IV 09/04/24 13:15 09/04/24 17:20 10.5 MLS/HR Enoxaparin Sodium 40 mg DAILY SC 09/05/24 10:00 09/05/24 10:17 40 MG Empaglifozin 10 mg DAILY PO 09/04/24 14:45 09/05/24 10:17 10 MG Examination: LUNGS:Normal, CVS:Normal (BLE edema resolved), NEURO:Normal laboratory and microbiology Laboratory Tests 09/05/24 06:03 Test 09/05/24 06:03 Range/Units Serum Glucose 97 74-106 mg/dL Problem List/Assessment/Plan Problem List/Assessment/Plan Acute on chronic decompensated HFrEF, NYHA Class IV Nonischemic/drug-induced/dilated cardiomyopathy Biventricular heart failure Mitral valve/tricuspid valve regurgitation, severe degree Acute kidney injury on chronic kidney disease Prediabetes, newly diagnosed Methamphetamine/tobacco use Suboptimal medical therapy Medical noncompliance Plan/Recommendation (Dr. Parsons) The patient presents with an acute exacerbation of congestive heart failure. A transthoracic echocardiogram revealed an EF of 10-15% with severely dilated left/right ventricle, severe mitral/tricuspid regurgitation and PA pressures at 74 mmHg. Discontinue dobutamine drip tonight and initiate BB. Continue diuresis along with strict I&Os, daily weight, and fluid restrictions. Initiate full GDMT for CHF as renal function permits. The patient can benefit from outpatient Mitraclip/Triclip interventions. Not a candidate at this time given poor medical compliance and drug abuse. Strongly counseled on risk factor modifications including medical compliance and methamphetamine/tobacco use cessation. Follow-up with a primary systems security consultant within 3-4 weeks post discharge. Continue nephrology recommendations. Continue DVT/VTE prophylaxis. There is no further cardiac work-up indicated at this time. Kindly call with any questions or concerns. Thank you for allowing us to participate in this patient's care. This medical document was created using an electronic medical record system with voice recognition software and computerized dictation system. Although this document has been carefully reviewed, there might still be some phonetic and typographical errors. Occasional wrong-word or ``sound-alike substitutions may have occurred due to the inherent limitations of voice recognition software. These areas are purely typographical due to imperfections of the software programs and do not reflect any compromise in the patient's medical care. Please read the chart carefully and recognize, using context, where these substitutions have occurred. Plan discussed with: Patient, Other Date of Service: Sep 05, 2024 Billing Provider: MARTHA CRAFT Cardiology Common Codes: [id number] HOSP CARE([facility] MARTHA CRAFT Sep 05, 2024 14:17
--- NOTE | 2024-09-05 15:10 | DVHPNRES ---
Progress Note Date Seen: Sep 05, 2024 Resident Creating Document: TOSHA MURRAY MD Medical Necessity Reason Pt with a Central, PICC or Fol: No Subjective Review of Systems Interval events 09/05: His 49-year-old male with past medical history of CHF, asthma, hypertension, and hyperlipidemia presented to the ED with complaints of bilateral lower extremity edema. He reports improvement in the leg swelling. He reports his breathing was improved. He has no associated chest pain, fever, chills or any other complaints at this time. Past Medical History Asthma, CHF, HTN, HLD Past Surgical History Denies all surgeries Family History Father had a heart attack at the age of 35. Mother had cardiac disease at age of 60. Past Social History The patient lives at home, smokes cigarettes greater than 1 pack per day, denies alcohol use, uses methamphetamine, last use 2 days ago. Review of systems The patient was seen and examined at the bedside. Overnight events reviwed, No new complaints reported. Rest of the ROS is negative. Patient reports: Feels better Objective vital signs Vital Sign Date Time Temp Pulse Resp B/P (MAP) Pulse Ox O2 Delivery O2 Flow Rate FiO2 09/05/24 14:44 116/87 09/05/24 12:56 97.9 72 18 97 97.9 09/05/24 08:00 Room Air* 0 21 Total Intake and Output 09/04/24 09/04/24 09/05/24 15:00 23:00 07:00 Intake Total 510.5 ml 240 ml Output Total 725 ml 2000 ml Balance -214.5 ml -1760 ml medications Current Medications Medications Dose Ordered Sig/Wilder Route Start Time Stop Time Status Last Admin Dose Admin Atorvastatin Calcium 20 mg HS PO 09/03/24 22:00 09/04/24 22:29 20 MG Sodium Chloride 10 ml Q8HR IV 09/03/24 22:00 09/05/24 14:15 10 ML Acetaminophen/ Hydrocodone Bitart 1 tab Q4HP PRN PO 09/03/24 18:45 Ondansetron HCl 4 mg Q4HP PRN IV 09/03/24 18:45 Docusate Sodium 100 mg BIDPRN PRN PO 09/03/24 18:45 Acetaminophen 650 mg Q6HP PRN PO 09/03/24 18:45 Nitroglycerin 0.4 mg Q5MINP PRN SL 09/03/24 19:30 Morphine Sulfate 2 mg Q30M PRN IV 09/03/24 19:30 Furosemide 40 mg BIDD IV 09/04/24 22:00 09/05/24 05:50 40 MG Dobutamine HCl/ Dextrose 250 ml @ 10.5 mls/hr [id number] IV 09/04/24 13:15 09/05/24 21:00 09/05/24 14:44 10.5 MLS/HR Enoxaparin Sodium 40 mg DAILY SC 09/05/24 10:00 09/05/24 10:17 40 MG Empaglifozin 10 mg DAILY PO 09/04/24 14:45 09/05/24 10:17 10 MG Carvedilol 3.125 mg Q12HR PO 09/05/24 22:00 Examination Pt is lying on bed General Appearance: Alert, Oriented X3, Cooperative, Mild distress HEENT: Atraumatic, Mucous membranes moist/pink Respiratory: Clear to auscultation, Normal air movement, No added sounds Cardiovascular: Regular rate, Normal S1, Normal S2, No murmurs Abdominal/ : Active bowel sounds, Soft, no distention, no tenderness Extremities: Bilateral 1+ pedal edema, Normal pulses, No tenderness/swelling Skin: No Significant rash, except past surgical scars Neuro: Normal speech, sensorimotor deficits none Psych/Mental Status: Mental status NL, Mood NL Nurse was there as water safety instructor during examination laboratory and microbiology Laboratory Tests 09/05/24 06:03 Test 09/05/24 06:03 Range/Units Serum Glucose 97 74-106 mg/dL Labs and/or images reviewed: Labs reviewed by me, Image(s) reviewed by me Problem List/Assessment/Plan Problem List/Assessment/Plan Acute on chronic decompensated HFrEF, NYHA Class IV, Biventricular heart failure Nonischemic/drug-induced/dilated cardiomyopathy Mitral valve/tricuspid valve regurgitation, severe degree Medication nonadherence Methamphetamine abuse -Monitor in telemetry -strict I&Os, daily weight, and fluid restrictions. -Initiate GDMT for CHF once renal function permits. Hold BB while on dobutamine drip. -IV Lasix 40 mg b.i.d. -Carvedilol 3.125 -Atorvastatin 20 mg -Echo showsEF of 10-15% with severely dilated left/right ventricle, severe mitral/tricuspid regurgitation and PA pressures at 74 mmHg -Cardiology was consulted , advised to initiate dobutamine drip for inotropic support and diuresis along with -The patient can benefit from outpatient Mitraclip/Triclip interventions. - Strongly counseled on risk factor modifications including medical compliance and methamphetamine/tobacco use cessation. - Follow-up with a primary forestry scientist within 3-4 weeks post discharge JATIN likely VMN CKD (chronic kidney disease) stage 3, GFR 30-59 ml/min - Nephrology consult: advised to continue diuresis, hold Entresto and spironolactone at this time along with a strict I&Os - Follow up with the urine electrolytes - Strongly counseled regarding methamphetamine cessation - Continue to follow up GI PPX: Famotidine VTE PPX: Lovenox Diet: cardiac diet Goals of care discussed with the patient for more than 27 minutes: Full Code status Case discussed with Dr. Murray, patient and nurse Plan discussed with: Patient, Other (RN) Date of Service: Sep 05, 2024 Billing Provider: TOSHA MURRAY MD Common Visit Codes: [id number] INP/OBS CARE(HIGH) JAMES PEREZ RESIDENT Sep 05, 2024 15:10 TOSHA MURRAY MD Sep 05, 2024 23:21
--- NOTE | 2024-09-05 16:41 | DVHPN2 ---
Progress Note Date Seen: Sep 05, 2024 Resident Creating Document: ROB SPENCER RESIDENT Medical Necessity Reason Pt with a Central, PICC or Fol: No Subjective Review of Systems Mr. Dunlap is a 49-year-old male with systolic heart failure-EF 10-15%, CKD, hyperlipidemia, asthma who presented to the ER with a chief complaint of shortness of breaths and lower extremity swelling for 1 week. Patient was last hospitalized in this facility in February and was discharged on GDMT, he reports that he stopped taking Jardiance as it was making him feel weak. Patient developed lower extremity swelling which has been worsening for about a week, he reports shortness of breaths on exertion, dyspnea, PND. Reports taking 2 pillows under his head. Denies any abdominal or urinary symptoms. 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 Reports last use methamphetamine was 2 days back. Past medical history: systolic heart failure-EF 10-15%, CKD, hyperlipidemia, asthma Home medications: Entresto, Lasix, Jardiance, spironolactone, Coreg 09/04-Patient seen and examined at bedside. Has bilateral expiratory wheezing and crackles, lower extremity pitting edema. 09/05-patient seen and examined at bedside, reports feeling better. Continue IV Lasix and dobutamine drip. Objective vital signs Vital Sign Date Time Temp Pulse Resp B/P (MAP) Pulse Ox O2 Delivery O2 Flow Rate FiO2 09/05/24 16:31 98.1 98 18 113/81 (92) 96 98.1 09/05/24 08:00 Room Air* 0 21 Total Intake and Output 09/04/24 09/04/24 09/05/24 15:00 23:00 07:00 Intake Total 510.5 ml 240 ml Output Total 725 ml 2000 ml Balance -214.5 ml -1760 ml medications Current Medications Medications Dose Ordered Sig/Wilder Route Start Time Stop Time Status Last Admin Dose Admin Atorvastatin Calcium 20 mg HS PO 09/03/24 22:00 09/04/24 22:29 20 MG Sodium Chloride 10 ml Q8HR IV 09/03/24 22:00 09/05/24 14:15 10 ML Acetaminophen/ Hydrocodone Bitart 1 tab Q4HP PRN PO 09/03/24 18:45 Ondansetron HCl 4 mg Q4HP PRN IV 09/03/24 18:45 Docusate Sodium 100 mg BIDPRN PRN PO 09/03/24 18:45 Acetaminophen 650 mg Q6HP PRN PO 09/03/24 18:45 Nitroglycerin 0.4 mg Q5MINP PRN SL 09/03/24 19:30 Morphine Sulfate 2 mg Q30M PRN IV 09/03/24 19:30 Furosemide 40 mg BIDD IV 09/04/24 22:00 09/05/24 05:50 40 MG Dobutamine HCl/ Dextrose 250 ml @ 10.5 mls/hr [id number] IV 09/04/24 13:15 09/05/24 21:00 09/05/24 14:44 10.5 MLS/HR Enoxaparin Sodium 40 mg DAILY SC 09/05/24 10:00 09/05/24 10:17 40 MG Empaglifozin 10 mg DAILY PO 09/04/24 14:45 09/05/24 10:17 10 MG Carvedilol 3.125 mg Q12HR PO 09/05/24 22:00 Examination Young male patient lying in the bed, no acute visible distress General: Well-built, afebrile, palor, mucosae are moist Cardiovascular: Regular S1 and S2. No murmurs, gallops or rubs. No JVD elevation. Bilateral 2+ pitting edema Respiratory: Bilateral expiratory wheezing heard on auscultation, inspiratory crackles. Abdomen: Soft, nontender, nondistended, normoactive bowel sounds, no rebound tenderness, no organomegaly, no masses Genitourinary: Deferred MSK/skin: Mobilizes 4 limbs. Skin is dry and warm Neurological: No motor, no sensitive deficits, normal speech. Pupils are isocoric and reactive. Psych/Mental Status: A/Ox3 laboratory and microbiology Laboratory Tests 09/05/24 06:03 Test 09/05/24 06:03 Range/Units Serum Glucose 97 74-106 mg/dL Labs and/or images reviewed: Labs reviewed by me, Image(s) reviewed by me Problem List/Assessment/Plan Problem List/Assessment/Plan Acute kidney injury superimposed on CKD3A in the setting of CHF exacerbation Acute on chronic systolic heart failure exacerbation-NYHA class 3 Pulmonary edema Methamphetamine use dependence Medication noncompliance Baseline BUN/creatinine/GFR is 31/.46/59 as of February 2024 BNP 2700 Echo 02/2024 shows severely dilated LV, LVEF 10-15%, severe MR and TR, pulmonary artery systolic pressure 74 Plan: BUN/creatinine stable, urine output up trending. Continue diuresis as tolerated with Lasix 40 mg IV b.i.d. cardiology started dobutamine drip at 2.5 mcg per hour. Resume Jardiance Hold Entresto and spironolactone at this time Strict I&Os, cardiac and renal specific diet, maintain fluid restrictions Follow up with the urine electrolytes Strongly counseled regarding methamphetamine cessation continue to follow up Plan discussed with patient , primary team in which all questions have been answered Case discussed with Dr. Nixon Addendum Patient seen and examined, plan discussed with resident. Agree with above, we will follow closely Plan discussed with: Patient ROB SPENCER RESIDENT Sep 05, 2024 16:41 JENNIFER NIXON MD Sep 05, 2024 18:20
--- NOTE | 2024-09-05 16:55 | DVHSR ---
APPROVED REPORT EXAM: Two-dimensional and M-mode echocardiogram with Doppler and color Doppler. Blood Pressure: 122/89 mmHg INDICATION Dyspnea CHF exac RISK FACTORS Height: 5'6", Weight: 154 DIMENSIONS LVDd7.7 (3.8-5.7cm)LA (2D)6.2 (1.9-4.0cm)Aortic Root3.3 (2.0-3.7cm) LVDs7.3 (2.5-4.0cm)LA (MM) (1.9-4.0cm)Aortic Cusp Exc1.5 (1.5-2.0cm) EF (%) 10.0 (55-70%)Rt. Atrium6.2 (1.9-4.0cm)Asc. Aorta cm IVSd0.9 (0.7-1.1cm)RV (D)5.7 (1.8-2.4cm) PWd0.9 (0.7-1.1cm) Mitral Valve MitralMitral Stenosis E wave1.47m/sMV Mean GR.mmHg A wave0.85m/sMV Peak GR.mmHg E/A ratio1.72D MVAcm2 DECEL [id number] 1/2 Timems Aortic Valve Aortic ValveAortic Stenosis V10.46m/Hollis Mean GR.2mmHg V20.99m/Hollis Peak GR.4mmHg LVOT Diameter2.0 (1.8-2.4cm)Doppler AVA1.46cm2 Pulmonic Valve V20.55m/s Tricuspid Valve TR Velocity2.81m/s [id number] Other Information Quality : Technically LimitedRhythm : Conclusion LVEF severely reduced at 10-15%, global hypokinesis, moderate dilated LV Right ventriclemoderately dilated and moderately hypokinetic Right and left atrium moderately dilated Severe mitral regurgitation severe tricuspid regurgitation, moderate pulmonary hyeprtension IVC dilated
[2024-09-05] MEDS: CARVEDILOL 3.125 MG TAB PO SCH (21:59)
--- NOTE | 2024-09-05 23:29 | DVHPN2 ---
Consult Progress Note Subjective Patient reports: Feels better Review of Systems: CVS:Normal, RESPIRATORY:Normal, NEURO:Normal Other Systems: Patient was seen and evaluated in follow up. No overnight events. Patient complains of BLE cramping. 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 Telemetry reviewed. Objective vital signs Vital Sign Date Time Temp Pulse Resp B/P (MAP) Pulse Ox O2 Delivery O2 Flow Rate FiO2 09/05/24 12:56 97.9 72 18 116/81 (93) 97 97.9 09/05/24 08:00 Room Air* 0 21 Total Intake and Output 09/04/24 09/04/24 09/05/24 15:00 23:00 07:00 Intake Total 510.5 ml 240 ml Output Total 725 ml 2000 ml Balance -214.5 ml -1760 ml medications Current Medications Medications Dose Ordered Sig/Wilder Route Start Time Stop Time Status Last Admin Dose Admin Atorvastatin Calcium 20 mg HS PO 09/03/24 22:00 09/04/24 22:29 20 MG Sodium Chloride 10 ml Q8HR IV 09/03/24 22:00 09/05/24 14:15 10 ML Acetaminophen/ Hydrocodone Bitart 1 tab Q4HP PRN PO 09/03/24 18:45 Ondansetron HCl 4 mg Q4HP PRN IV 09/03/24 18:45 Docusate Sodium 100 mg BIDPRN PRN PO 09/03/24 18:45 Acetaminophen 650 mg Q6HP PRN PO 09/03/24 18:45 Nitroglycerin 0.4 mg Q5MINP PRN SL 09/03/24 19:30 Morphine Sulfate 2 mg Q30M PRN IV 09/03/24 19:30 Furosemide 40 mg BIDD IV 09/04/24 22:00 09/05/24 05:50 40 MG Dobutamine HCl/ Dextrose 250 ml @ 10.5 mls/hr [id number] IV 09/04/24 13:15 09/05/24 21:00 09/04/24 17:20 10.5 MLS/HR Enoxaparin Sodium 40 mg DAILY SC 09/05/24 10:00 09/05/24 10:17 40 MG Empaglifozin 10 mg DAILY PO 09/04/24 14:45 09/05/24 10:17 10 MG Carvedilol 3.125 mg Q12HR PO 09/05/24 22:00 UNV Examination: GENERAL:Normal, HEENT:Normal, NECK:Normal, LUNGS:Normal, CVS:Normal, ABDOMEN:Normal, MSK:Normal, SKIN:Normal, NEURO:Normal laboratory and microbiology Laboratory Tests 09/05/24 06:03 Test 09/05/24 06:03 Range/Units Serum Glucose 97 74-106 mg/dL Problem List/Assessment/Plan Problem List/Assessment/Plan Assessment Acute on chronic decompensated HFrEF, NYHA Class IV. Nonischemic/drug-induced/dilated cardiomyopathy. Biventricular heart failure. Mitral valve/tricuspid valve regurgitation, severe degree. Acute kidney injury on chronic kidney disease. Prediabetes, newly diagnosed. Methamphetamine/tobacco use. Suboptimal medical therapy. Medical noncompliance. Plan/Recommendation Continued all current supportive medical care. Patient has been seen by Yue May NP on my behalf. We have discussed the plan with the patient. The patient presents with an acute exacerbation of congestive heart failure. A transthoracic echocardiogram revealed an EF of 10-15% with severely dilated left/right ventricle, severe mitral/tricuspid regurgitation and PA pressures at 74 mmHg. Discontinue dobutamine drip tonight and initiate BB. Continue diuresis along with strict I&Os, daily weight, and fluid restrictions. Initiate full GDMT for CHF as renal function permits. The patient can benefit from outpatient Mitraclip/Triclip interventions. Not a candidate at this time given poor medical compliance and drug abuse. Strongly counseled on risk factor modifications including medical compliance and methamphetamine/tobacco use cessation. Follow-up with a primary marketing services coordinator within 3-4 weeks post discharge. Continue nephrology recommendations. Continue DVT/VTE prophylaxis. Additional plan as per the hospital course. Plan discussed with: Patient Date of Service: Sep 05, 2024 Billing Provider: MARY LOU LOPEZ MD Cardiology Common Codes: 62603-VLOIKHNVKY [facility] MARY LOU LOPEZ MD Sep 05, 2024 14:29
[2024-09-06] VITALS (7 sets, daily range): BP systolic 112–117; BP diastolic 83–92; PULSE 94–104; RESP 14–17; TEMP 97.6–97.9; O2SAT 94–98
[2024-09-06 06:29] LABS: Hematocrit 41.6 % (41.0-53.0); Hemoglobin 13.5 g/dL (13.5-17.5); Mean Corpuscular Hemoglobin 28.1 pg (28.0-32.0); Mean Corpuscular Volume 86.4 fL (80.0-100.0); Nucleated Red Blood Cells % 0.2 %
[2024-09-06 06:47] LABS: Alanine Aminotransferase 28 U/L (7-40); Albumin 3.7 g/dL (3.2-4.8); Alkaline Phosphatase 187 U/L (46-116); Anion Gap 11 (5-15); BUN/Creatinine Ratio 19.3 (10.0-20.0); Blood Urea Nitrogen 40 mg/dL (9-23); Calcium 9.3 mg/dL (8.7-10.4); Carbon Dioxide 26 mmol/L (20-31); Chloride 104 mmol/L (98-107); Glucose 116 mg/dL (74-106); Magnesium 2.6 mg/dL (1.6-2.6); Potassium 4.2 mmol/L (3.5-5.1); Sodium 141 mmol/L (136-145); Total Protein 6.7 g/dL (5.7-8.2)
[2024-09-06 06:52] LABS: Bilirubin, Total 1.4 mg/dL (0.2-1.0)
--- NOTE | 2024-09-06 09:28 | DVHDSRES ---
Discharge Summary Date of Admission Resident Creating Document: JAMES PEREZ Sep 03, 2024 at 19:20 Date of Discharge: Sep 06, 2024 Admitting Diagnosis Shortness of breaths due to heart failure Labs/Diagnostic Data: Laboratory Results Test 09/06/24 05:57 09/04/24 17:00 09/04/24 09:28 09/04/24 09:27 White Blood Count 7.1 10^3/uL (4.4-10.8) Red Blood Count 4.81 10^6/uL (4.5-5.90) Hemoglobin 13.5 g/dL (13.5-17.5) Hematocrit 41.6 % (41.0-53.0) Mean Corpuscular Volume 86.4 fL (80.0-100.0) Mean Corpuscular Hemoglobin 28.1 pg (28.0-32.0) Mean Corpuscular Hemoglobin Concent 32.5 g/dL (32.0-36.0) Red Cell Distribution Width 19.4 % (11.8-14.3) Platelet Count 217 10^3/uL (140-450) Mean Platelet Volume 7.6 fL (6.9-10.8) Neutrophils (%) (Auto) 64.8 % (37.0-80.0) Lymphocytes (%) (Auto) 16.7 % (10.0-50.0) Monocytes (%) (Auto) 14.4 % (0.0-12.0) Eosinophils (%) (Auto) 3.6 % (0.0-7.0) Basophils (%) (Auto) 0.5 % (0.0-2.0) Neutrophils # (Auto) 4.6 10 ^3/uL (1.6-8.6) Lymphocytes # (Auto) 1.2 10 ^3/uL (0.4-5.4) Monocytes # (Auto) 1.0 10 ^3/uL (0-1.3) Eosinophils # (Auto) 0.3 10 ^3/uL (0-0.8) Basophils # (Auto) 0 10 ^3/uL (0-0.2) Nucleated Red Blood Cells 0.2 % Sodium Level 141 mmol/L (136-145) Potassium Level 4.2 mmol/L (3.5-5.1) Chloride Level 104 mmol/L (98-107) Carbon Dioxide Level 26 mmol/L (20-31) Anion Gap 11 (5-15) Blood Urea Nitrogen 40 mg/dL (9-23) Creatinine 2.07 mg/dL (0.700-1.30) Glomerular Filtration Rate Calc 39 mL/min (>90) BUN/Creatinine Ratio 19.3 (10.0-20.0) Serum Glucose 116 mg/dL (74-106) Calcium Level 9.3 mg/dL (8.7-10.4) Magnesium Level 2.6 mg/dL (1.6-2.6) Total Bilirubin 1.4 mg/dL (0.2-1.0) Aspartate Amino Transferase (AST) 33 U/L (13-40) Alanine Aminotransferase (ALT) 28 U/L (7-40) Alkaline Phosphatase 187 U/L (46-116) B-Type Natriuretic Peptide 1665.80 pg/mL (0-100) Total Protein 6.7 g/dL (5.7-8.2) Albumin 3.7 g/dL (3.2-4.8) Urine Creatinine 35.81 mg/dL (30.0-125.0) Urine Protein/Creatinine Ratio 0.19 Urine Sodium 102 mmol/L (40-220) Urine Total Protein 6.7 mg/dL (1-14) Urine Opiates Screen Neg (NEGATIVE) Urine Fentanyl Screen Neg (NEGATIVE) Urine Barbiturates Screen Neg (NEGATIVE) Urine Phencyclidine Screen Neg (NEGATIVE) Urine Amphetamines Screen Pos (NEGATIVE) Urine Benzodiazepines Screen Neg (NEGATIVE) Urine Cocaine Screen Neg (NEGATIVE) Urine Cannabinoids Screen Neg (NEGATIVE) Parathyroid Hormone (Intact) 127.7 pg/mL (18.4-80.1) Hemoglobin A1c 6.1 % A1C (<5.7) Test 09/04/24 03:39 09/03/24 12:20 Vitamin D 25-Hydroxy 58.4 ng/mL (30.0-100) Thyroid Stimulating Hormone (TSH) 2.94 uIU/mL (0.55-4.78) Urine Color Light-yellow (Yellow) Urine Clarity Clear (Clear) Urine pH 5.5 (5.0-9.0) Urine Specific [place] 1.008 (1.001-1.035) Urine Protein Negative (Negative) Urine Ketones Negative (Negative) Urine Blood Negative /uL (Negative) Urine Nitrite Negative (Negative) Urine Bilirubin Negative (Negative) Urine Urobilinogen Normal mg/dL (Negative) Urine Leukocyte Esterase Negative /uL (Negative) Urine RBC <1 /hpf (0 - 3) Urine Microscopic WBC < 1 /HPF (0-3) Urine Squamous Epithelial Cells None seen /hpf (<5) Urine Bacteria Few /hpf (None Seen) Urine Hyaline Casts Mod /lpf (0 - 2) Urine Glucose Normal mg/dL (Normal) Other Laboratory Tests 09/06/24 05:57 Brief Hx & Hospital Course: The patient with past medical history of CHF, asthma, hypertension and hyperlipidemia presented to the ED with complaints of bilateral lower extremity edema. Patient was monitored in telemetry. Initial workup included EKG chest x-ray and lab studies. EKG showed no ischemic changes. Chest x-ray showed CHF with mild cardiomegaly. Echocardiography showed LV ejection fraction 10-15%, global hypokinesis. Cardiology diagnosed him with NYHA class 4 classification, biventricular heart failure. IV Lasix, carvedilol, atorvastatin, aspirin was given. Patient was initially managed with dobutamine, drip and then switched to carvedilol. JATIN due to VMN on CKD was managed by consulting Nephrology. Entresto and spironolactone was held according to Nephrology consult. Patient's condition was hemodynamically stable and his leg edema improved and ready for discharge. Patient was counseled on methamphetamine cessation and medication compliance during his stay. The patient is advised to follow up with his PCP within 1 week and the the primary acute care physician within 2 within 3-4 weeks post discharge. The discharge plan and medications was discussed with the patient and agreed with the plan. Pt is lying on bed General Appearance: Alert, Oriented X3, Cooperative, Mild distress HEENT: Atraumatic, Mucous membranes moist/pink Respiratory: Clear to auscultation, Normal air movement, No added sounds Cardiovascular: Regular rate, Normal S1, Normal S2, No murmurs Abdominal/ : Active bowel sounds, Soft, no distention, no tenderness Extremities: No edema, Normal pulses, No tenderness/swelling Skin: No Significant rash, except past surgical scars Neuro: Normal speech, sensorimotor deficits none Psych/Mental Status: Mental status NL, Mood NL Nurse was there as rehab aid during examination Operations or Procedures Extremity venous study : No right or left femoropopliteal venous thrombosis. Chest x-ray:Cardiomegaly with mild CHF. EKG: no ischemic changes Echocardiography: LVEF severely reduced at 10-15%, global hypokinesis, moderate dilated LV Right ventriclemoderately dilated and moderately hypokinetic Right and left atrium moderately dilated Severe mitral regurgitation severe tricuspid regurgitation, moderate pulmonary hyeprtension IVC dilated Condition at Discharge: Stable Final Diagnosis/Problems List Acute on chronic decompensated HFrEF NYHA 4 biventricular heart failure Nonischemic/drug-induced/dilated cardiomyopathy Mitral/tricuspid valve regurgitation, severe Medication nonadherence Methamphetamine abuse JATIN likely VMN on CKD Prediabetes Discharge Disposition: Home Discharge Instruct/Medications Diet: Consistent carbohydrate, Cardiac 2g Na,low cholest Activity: No Restrictions, As Tolerated Follow Up/Referral: PCP and cardiology Medications: Continue home medications Carvedilol 6.25 b.i.d. Scheduled Aspirin (Aspirin Low Dose), 81 MG PO DAILY Atorvastatin Calcium (Atorvastatin Calcium), 10 MG PO HS Carvedilol (Coreg), 6.25 MG OR BID Empagliflozin (Jardiance), 10 MG PO DAILY Furosemide (Furosemide), 40 MG PO BID Levofloxacin Hemihydrate (Levofloxacin), 1 TAB PO DAILY Spironolactone (Aldactone), 12.5 MG PO DAILY Scheduled PRN Acetaminophen (Acetaminophen), 650 MG PO Q6HP PRN Discontinued Medications Carvedilol (Coreg), 3.125 MG PO Q12HR Sacubitril-Valsartan (Entresto 24-26 mg), 1 TAB PO BID Discharge Statement: "Patient was advised to return to the ER or call 911 if any headaches, dizziness, shortness of breath, chest pain, abdominal pain, bleeding, fevers, or worsening of medical condition. Patient was counseled about treatment plan, medications, possible side effects, patientverbalized understanding. All questions were answered to the best of my ability. This discharge took greater then 30 minutes in planning, reviewing documentation, counseling the patient, and discussing with other team members." ASSESSMENT ASSESSMENT Assessment Date of Service: Sep 06, 2024 Billing Provider: TOSHA BE MD Common Visit Codes: 47636-FUD/OBS DISCH DAY >30min CHRISJAMES EUBANKS Sep 06, 2024 09:28 TOSHA BE MD Sep 07, 2024 07:37
[2024-09-06] MEDS: LACTULOSE 20Gm/30ML SOLN PO SCH (10:00)
--- NOTE | 2024-09-06 10:59 | DVHPN2 ---
Progress Note Date Seen: Sep 06, 2024 Resident Creating Document: ROB SPENCER RESIDENT Medical Necessity Reason Pt with a Central, PICC or Fol: No Subjective Review of Systems Mr. Dunlap is a 49-year-old male with systolic heart failure-EF 10-15%, CKD, hyperlipidemia, asthma who presented to the ER with a chief complaint of shortness of breaths and lower extremity swelling for 1 week. Patient was last hospitalized in this facility in February and was discharged on GDMT, he reports that he stopped taking Jardiance as it was making him feel weak. Patient developed lower extremity swelling which has been worsening for about a week, he reports shortness of breaths on exertion, dyspnea, PND. Reports taking 2 pillows under his head. Denies any abdominal or urinary symptoms. Does not follow up counseling services director, but has a PCP. Reports last use methamphetamine was 2 days back. Past medical history: systolic heart failure-EF 10-15%, CKD, hyperlipidemia, asthma Home medications: Entresto, Lasix, Jardiance, spironolactone, Coreg 09/04-Patient seen and examined at bedside. Has bilateral expiratory wheezing and crackles, lower extremity pitting edema. 09/05-patient seen and examined at bedside, reports feeling better. Continue IV Lasix and dobutamine drip. 09/06-patient seen and examined at bedside. Lower extremity swelling is resolving, no acute distress. Bilateral crackles resolving. Objective vital signs Vital Sign Date Time Temp Pulse Resp B/P (MAP) Pulse Ox O2 Delivery O2 Flow Rate FiO2 09/06/24 10:21 73 112/85 09/06/24 09:00 97.7 14 96 97.7 09/05/24 20:00 Room Air* 0 21 Total Intake and Output 09/05/24 09/05/24 09/06/24 15:00 23:00 07:00 Intake Total 78.75 ml 731.5 ml 700 ml Output Total 950 ml 960 ml 2500 ml Balance -871.25 ml -228.5 ml -1800 ml medications Current Medications Medications Dose Ordered Sig/Wilder Route Start Time Stop Time Status Last Admin Dose Admin Atorvastatin Calcium 20 mg HS PO 09/03/24 22:00 09/05/24 21:58 20 MG Sodium Chloride 10 ml Q8HR IV 09/03/24 22:00 09/06/24 05:40 10 ML Acetaminophen/ Hydrocodone Bitart 1 tab Q4HP PRN PO 09/03/24 18:45 Ondansetron HCl 4 mg Q4HP PRN IV 09/03/24 18:45 Docusate Sodium 100 mg BIDPRN PRN PO 09/03/24 18:45 Acetaminophen 650 mg Q6HP PRN PO 09/03/24 18:45 Nitroglycerin 0.4 mg Q5MINP PRN SL 09/03/24 19:30 Morphine Sulfate 2 mg Q30M PRN IV 09/03/24 19:30 Furosemide 40 mg BIDD IV 09/04/24 22:00 09/06/24 05:42 40 MG Enoxaparin Sodium 40 mg DAILY SC 09/05/24 10:00 09/06/24 10:21 40 MG Empaglifozin 10 mg DAILY PO 09/04/24 14:45 09/06/24 10:21 10 MG Carvedilol 3.125 mg Q12HR PO 09/05/24 22:00 09/06/24 10:21 3.125 MG Lactulose 30 ml DAILY PO 09/06/24 10:00 Examination Young male patient lying in the bed, no acute visible distress General: Well-built, afebrile, palor, mucosae are moist Cardiovascular: Regular S1 and S2. No murmurs, gallops or rubs. No JVD elevation. Resolving Bilateral 2+ pitting edema Respiratory: Bilateral expiratory wheezing heard on auscultation, resolving inspiratory crackles. Abdomen: Soft, nontender, nondistended, normoactive bowel sounds, no rebound tenderness, no organomegaly, no masses Genitourinary: Deferred MSK/skin: Mobilizes 4 limbs. Skin is dry and warm Neurological: No motor, no sensitive deficits, normal speech. Pupils are isocoric and reactive. Psych/Mental Status: A/Ox3 laboratory and microbiology Laboratory Tests 09/06/24 05:57 Test 09/06/24 05:57 Range/Units Serum Glucose 116 H 74-106 mg/dL Labs and/or images reviewed: Labs reviewed by me, Image(s) reviewed by me Problem List/Assessment/Plan Problem List/Assessment/Plan Acute kidney injury superimposed on CKD3A in the setting of CHF exacerbation Acute on chronic systolic heart failure exacerbation-NYHA class 3 Pulmonary edema Methamphetamine use dependence Medication noncompliance Baseline BUN/creatinine/GFR is 31/1.46/59 as of February 2024 BNP 2700 Echo 02/2024 shows severely dilated LV, LVEF 10-15%, severe MR and TR, pulmonary artery systolic pressure 74 Plan: BUN/creatinine stable, urine output up trending. FENA 4.2%. Continue diuresis as tolerated with Lasix 40 mg IV b.i.d. Off dobutamine, on Coreg by Cardiology Resume Jardiance ok to resume Entresto and spironolactone at this time Strict I&Os, cardiac and renal specific diet, maintain fluid restrictions Strongly counseled regarding methamphetamine cessation We will continue to follow up Plan discussed with patient , primary team in which all questions have been answered Case discussed with Dr. Nixon Addendum Patient seen and examined, plan discussed with resident. Agree with above, we will follow closely diuretics lasix 40mg bid on dc GDMT for chf after DC per primary team Plan discussed with: Patient ROB SPENCER Sep 06, 2024 10:59 JENNIFER NIXON MD Sep 06, 2024 12:30
[2024-09-06] MEDS ORDERED: CARV-214 OR (13:59)
--- NOTE | 2024-09-06 15:07 | DVHPN2 ---
Progress Note - Dictate Date Seen: Sep 06, 2024 Medical Necessity Reason Pt with a Central, PICC or Fol: No Subjective Patient was seen and evaluated in follow up. Patient reports improvement in BLE swelling. 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 Telemetry reviewed. vital signs Vital Sign Date Time Temp Pulse Resp B/P (MAP) Pulse Ox O2 Delivery O2 Flow Rate FiO2 09/06/24 10:21 73 112/85 09/06/24 09:00 97.7 14 96 97.7 09/05/24 20:00 Room Air* 0 21 Total Intake and Output 09/05/24 09/05/24 09/06/24 15:00 23:00 07:00 Intake Total 78.75 ml 731.5 ml 700 ml Output Total 950 ml 960 ml 2500 ml Balance -871.25 ml -228.5 ml -1800 ml medications Current Medications Medications Dose Ordered Sig/Wilder Route Start Time Stop Time Status Last Admin Dose Admin Atorvastatin Calcium 20 mg HS PO 09/03/24 22:00 09/05/24 21:58 20 MG Sodium Chloride 10 ml Q8HR IV 09/03/24 22:00 09/06/24 05:40 10 ML Acetaminophen/ Hydrocodone Bitart 1 tab Q4HP PRN PO 09/03/24 18:45 Ondansetron HCl 4 mg Q4HP PRN IV 09/03/24 18:45 Docusate Sodium 100 mg BIDPRN PRN PO 09/03/24 18:45 Acetaminophen 650 mg Q6HP PRN PO 09/03/24 18:45 Nitroglycerin 0.4 mg Q5MINP PRN SL 09/03/24 19:30 Morphine Sulfate 2 mg Q30M PRN IV 09/03/24 19:30 Furosemide 40 mg BIDD IV 09/04/24 22:00 09/06/24 05:42 40 MG Enoxaparin Sodium 40 mg DAILY SC 09/05/24 10:00 09/06/24 10:21 40 MG Empaglifozin 10 mg DAILY PO 09/04/24 14:45 09/06/24 10:21 10 MG Carvedilol 3.125 mg Q12HR PO 09/05/24 22:00 09/06/24 10:21 3.125 MG Lactulose 30 ml DAILY PO 09/06/24 10:00 objective GENERAL: Alert and oriented x 3. No acute distress. EYES: PERRL, EOMI. Anicteric. HENT: Moist mucous membranes. LUNGS: Diminished breath sounds. CARDIOVASCULAR: Regular rate and rhythm. ABDOMEN: Soft, non-tender and non-distended. EXTREMITIES: 3+ BLE edema. NEUROLOGIC: No focal neurological deficits. SKIN: Warm, dry. laboratory and microbiology Laboratory Tests 09/06/24 05:57 Test 09/06/24 05:57 Range/Units Serum Glucose 116 H 74-106 mg/dL Problem List Acute on chronic decompensated HFrEF, NYHA Class IV. Nonischemic/drug-induced/dilated cardiomyopathy. Biventricular heart failure. Mitral valve/tricuspid valve regurgitation, severe degree. Acute kidney injury on chronic kidney disease. Prediabetes, newly diagnosed. Methamphetamine/tobacco use. Suboptimal medical therapy. Medical noncompliance. Assessment/Plan Continued all current supportive medical care. Coreg. DVT prophylactics. Diuretics with Lasix. Nitro SL. Morphine and Dunmor for pain management. Additional plan as per the hospital course. Plan discussed with: Patient MARY LOU LOPEZ MD Sep 06, 2024 12:57
== END 2024-09-06 17:30 | disposition home or self-care (01) | DRG 194 ==
LOC: ER 11:31 → OVERFLOW 18:42 → TELE-WESTW 09-04 03:48
PROVIDERS: ADMIT Internal Medicine; ATTEND Internal Medicine
DX: I13.0 Hypertensive heart and chronic kidney disease with heart failure and stage 1 through stage 4 chronic kidney disease, or unspecified chronic kidney disease (principal); N17.0 Acute kidney failure with tubular necrosis; I42.7 Cardiomyopathy due to drug and external agent; F17.210 Nicotine dependence, cigarettes, uncomplicated; E78.5 Hyperlipidemia, unspecified; J45.909 Unspecified asthma, uncomplicated; I08.1 Rheumatic disorders of both mitral and tricuspid valves; N18.32 Chronic kidney disease, stage 3b; R73.03 Prediabetes; I50.23 Acute on chronic systolic (congestive) heart failure; I50.82 Biventricular heart failure; F15.10 Other stimulant abuse, uncomplicated; Z91.148 Patient's other noncompliance with medication regimen for other reason; Z91.199 Patient's noncompliance with other medical treatment and regimen due to unspecified reason; Z82.5 Family history of asthma and other chronic lower respiratory diseases; Z82.49 Family history of ischemic heart disease and other diseases of the circulatory system; Z82.3 Family history of stroke
CPT/HCPCS: 36415; 71046; 80053; 80307; 81001; 82306; 82570; 83036; 83735; 83880; 83970; 84156; 84300; 84443; 85025; 93005; 93306; 93970; 96374; G0378; J3490

== ENCOUNTER 2024-09-28 10:32 | Inpatient (IN) | payer MEDICAID ==
[~2024-09-28] VITALS: Ht 167.6 cm; Wt 69.5 kg
[~2024-09-28 10:32] MED LIST changes: +CARV-214 OR; -CARV-214 PO; -SACU1TAB PO
--- NOTE | 2024-09-28 11:01 | ED.PDOC ---
History of Present Illness HPI Comments This is a 49 years old male with past medical history of CHF, bronchial asthma, CKD stage 3, methamphetamine abuse presented to the ED with a chief complaint of shortness of breath, cough, fatigue, chills since yesterday prior to this visit. The patient also complaining of bilateral leg swelling for last 1 weeks despite taking his water pill. He is noncompliant with sodium restricted diet and last methamphetamine use was 2 days ago. He was admitted in the hospital 2 weeks ago with exacerbation of CHF and his EF is only 10-15%. Denies chest pain, fever, dizziness, blurred vision, abdominal pain, nausea, vomiting or any change in bowel and bladder habit. PCP: Dr. Koehler Chief Complaint: Shortness of Breath Time Seen by MD: 10:33 Primary Care Provider: UNKNOWN Allergies: Coded Allergies: NO KNOWN ALLERGIES (Unverified , 08/25/10) Home Meds Active Scripts Carvedilol (COREG) 3.125 Mg Tab, 6.25 MG OR BID for 30 Days, #120 TAB Prov:NAILA NIEVES RESIDENT 09/06/24 Levofloxacin Hemihydrate (LEVOFLOXACIN) 750 Mg Tab, 1 TAB PO DAILY, #5 TAB Prov:RICHARDSON FAGAN [facility] [place] 03/16/24 Furosemide (Furosemide) 40 Mg Tab, 40 MG PO BID for 30 Days, #60 TAB Prov:RICHARDSON FAGAN [facility] [place] 03/16/24 Spironolactone (Aldactone) 25 Mg Tab, 12.5 MG PO DAILY for 30 Days, #15 TAB Prov:RICHARDSON FAGAN [facility] [place] 03/16/24 Acetaminophen (Acetaminophen) 325 Mg Tab, 650 MG PO Q6HP PRN for 30 Days, #240 TAB Prov:RICHARDSON FAGAN [facility] [place] 03/16/24 Aspirin (Aspirin Low Dose) 81 Mg Tab, 81 MG PO DAILY for 30 Days, #30 TAB Prov:RICHARDSON FAGAN [facility] [place] 03/16/24 Atorvastatin Calcium (ATORVASTATIN CALCIUM) 20 Mg Tab, 10 MG PO HS for 30 Days, #15 TAB Prov:RICHARDSON FAGAN 03/16/24 Empagliflozin (Jardiance) 10 Mg Tab, 10 MG PO DAILY for 30 Days, #30 TAB Prov:RICHARDSON FAGAN [facility] [place] 03/16/24 Information Source: Patient Mode of Arrival: Ambulatory Severity: Mild Timing: Days Duration: Since onset Prehospital treatment: None Past Medical History PAST MEDICAL HISTORY: Asthma, CHF, CKF, HTN Surgical History (Other): Left knee surgery Family History Family History: Reviewed,noncontributory to illness Social History Smoker: Cigarettes, Greater Than 1 Pack/Day Alcohol: Denies ETOH Use Drugs: Methamphetamine Lives In: Home Constitutional: reports: chills, fatigue; denies: diaphoresis, fever, malaise, sweats, weakness, others EENTM: denies: blurred vision, double vision, ear bleeding, ear discharge, ear drainage, ear pain, ear ringing, eye pain, eye redness, hearing loss, mouth pain, mouth swelling, nasal discharge, nose bleeding, nose congestion, nose pain, photophobia, tearing, throat pain, throat swelling, voice changes, others Respiratory: reports: cough, shortness of breath; denies: hemoptysis, orthopnea, SOB at rest, SOB with excertion, stridor, wheezing, others Cardiovascular: reports: Dyspnea on exertion, edema; denies: chest pain, dizzy spells, diaphoresis, irregular heart beat, left arm pain, lightheadedness, palpitations, PND, syncope, others Gastrointestinal: denies: abdomen distended, abdominal pain, blood streaked bowels, constipated, diarrhea, dysphagia, difficulty swallowing, hematemesis, melena, nausea, poor appetite, poor fluid intake, rectal bleeding, rectal pain, vomiting, others Genitourinary: denies: burning, dysuria, flank pain, frequency, hematuria, incontinence, penile discharge, penile sore, pain, testicle pain, testicle swelling, urgency, others Neurological: denies: dizziness, fainting, headache, left sided numbness, left sided weakness, numbness, paresthesia, pre-existing deficit, right sided numbness, right sided weakness, seizure, speech problems, tingling, tremors, weakness, others Musculoskeletal: denies: back pain, gout, joint pain, joint swelling, muscle pain, muscle stiffness, neck pain, others Integumetry: denies: bruises, change in color, change in hair/nails, dryness, laceration, lesions, lumps, rash, wounds, others Allergic/Immunocompromised: denies: Difficulty Healing, Frequent Infections, Hives, Itching, others Hematologic/Lymphatic: denies: anemia, blood clots, easy bleeding, easy bruising, swollen glands, others Endocrine: denies: excessive hunger, excessive sweating, excessive thirst, excessive urination, flushing, intolerance to cold, intolerance to heat, unexplained weight gain, unexplained weight loss, others Psychiatric: denies: anxiety, bipolar disorder, depression, hopeless, panic disorder, schizophrenia, sleepless, suicidal, others Physical Exam General Appearance: Mild Distress HEENT: Normal ENT Inspection, Pharynx Normal, TMs Normal Neck: Full Range of Motion, Non-Tender, Normal, Normal Inspection Respiratory: Decreased Breath Sounds, No Accessory Muscle Use, Rales Cardiovascular: No JVD, No Murmur, No Gallop, Normal Peripheral Pulses, Regular Rate/Rhythm, Other (Bilateral pedal edema 1+) Breast Exam: Deferred Gastrointestinal: No Organomegaly, Non Tender, No Pulsatile Mass, Normal Bowel Sounds, Soft Genitalia: Deferred Pelvic: Deferred Rectal: Deferred Extremities: No calf tenderness, Normal capillary refill, Normal inspection, Normal range of motion, Non-tender, No pedal edema Neurologic: NOT DONE Cerebellar Function: NOT DONE Reflexes: NOT DONE Skin: NOT DONE Peripheral Pulses: 3+ carotid (R), 3+ carotid (L), 3+ femoral (R), 3+ femoral (L), 3+ dorsalis pedis (R), 3+ dorsalis pedis (L), 3+ Radial (R), 3+ Radial (L), 3+ Brachial (R), 3+ Brachial (L) Lymphatic: NOT DONE Was a procedure done? Was a procedure done?: No Differential Dx Considerations may include: Acute exacerbation of CHF, Bronchitis, flu-like symptoms, methamphetamine abuse X-Ray, Labs, Meds, VS Vital Signs Date Time Temp Pulse Resp B/P (MAP) Pulse Ox O2 Delivery O2 Flow Rate FiO2 09/28/24 14:33 98.2 93 18 112/67 (82) 97 98.2 09/28/24 12:32 74 20 98 Room Air* 0 21 09/28/24 12:28 105/65 09/28/24 12:16 91 19 97 Room Air 09/28/24 12:16 98.0 91 19 105/65 (78) 97 98.0 09/28/24 10:33 97.4 87 17 106/72 98 97.4 Lab Test 09/28/24 12:06 09/28/24 11:28 Range/Units Urine Color Colorless Yellow Urine Clarity Clear Clear Urine pH 5.0 5.0-9.0 Urine Specific [place] 1.009 1.001-1.035 Urine Protein Negative Negative Urine Ketones Negative Negative Urine Blood Negative Negative /uL Urine Nitrite Negative Negative Urine Bilirubin Negative Negative Urine Urobilinogen Normal Negative mg/dL Urine Leukocyte Esterase Negative Negative /uL Urine RBC <1 0 - 3 /hpf Urine Microscopic WBC < 1 0-3 /HPF Urine Squamous Epithelial Cells None seen <5 /hpf Urine Bacteria None seen None Seen /hpf Urine Glucose Normal Normal mg/dL Urine Opiates Screen Neg NEGATIVE Urine Fentanyl Screen Neg NEGATIVE Urine Barbiturates Screen Neg NEGATIVE Urine Phencyclidine Screen Neg NEGATIVE Urine Amphetamines Screen Pos NEGATIVE Urine Benzodiazepines Screen Neg NEGATIVE Urine Cocaine Screen Neg NEGATIVE Urine Cannabinoids Screen Neg NEGATIVE Influenza Type A Antigen Negative Negative Influenza Type B Antigen Negative Negative SARS-CoV-2 Antigen (Rapid) Negative NEGATIVE White Blood Count 5.4 4.4-10.8 10^3/uL Red Blood Count 4.38 L 4.5-5.90 10^6/uL Hemoglobin 12.6 L 13.5-17.5 g/dL Hematocrit 38.5 L 41.0-53.0 % Mean Corpuscular Volume 88.0 80.0-100.0 fL Mean Corpuscular Hemoglobin 28.8 28.0-32.0 pg Mean Corpuscular Hemoglobin Concent 32.7 32.0-36.0 g/dL Red Cell Distribution Width 19.8 H 11.8-14.3 % Platelet Count 190 140-450 10^3/uL Mean Platelet Volume 7.8 6.9-10.8 fL Neutrophils (%) (Auto) 37.0-80.0 % Lymphocytes (%) (Auto) 10.0-50.0 % Monocytes (%) (Auto) 0.0-12.0 % Basophils (%) (Auto) 0.0-2.0 % Neutrophils # (Auto) 1.6-8.6 10 ^3/uL Lymphocytes # (Auto) 0.4-5.4 10 ^3/uL Monocytes # (Auto) 0-1.3 10 ^3/uL Differential Total Cells Counted 100.0 100 Neutrophils % (Manual) 57 37.0-80.0 Band Neutrophils % (Manual) 0 Lymphocytes % (Manual) 14 10.0-50.0 Monocytes % (Manual) 21 H 0-12 Eosinophils % (Manual) 7 0-7 Basophils % (Manual) 0 0.0-2.0 Metamyelocytes % (manual) 0 Myelocytes % (Manual) 0 Promyelocytes % (Manual) 0 Blast Cells % (Manual) 1 Reactive Lymphocytes 0 Platelet Estimate Adequate Sodium Level 140 136-145 mmol/L Potassium Level 3.8 3.5-5.1 mmol/L Chloride Level 107 98-107 mmol/L Carbon Dioxide Level 25 20-31 mmol/L Anion Gap 8 5-15 Blood Urea Nitrogen 32 H 9-23 mg/dL Creatinine 1.65 H 0.700-1.30 mg/dL Glomerular Filtration Rate Calc 51 >90 mL/min BUN/Creatinine Ratio 19.4 10.0-20.0 Serum Glucose 98 74-106 mg/dL Calcium Level 8.4 L 8.7-10.4 mg/dL Troponin I High Sensitivity 42 </=54 ng/L B-Type Natriuretic Peptide 1876.48 0-100 pg/mL Current Medications Medications (Trade) Dose Ordered Sig/Wilder Route Start Time Stop Time Status Last Admin Furosemide (Lasix Injection) 40 mg ONCE ONCE IV 09/28/24 11:00 09/28/24 11:11 DC 09/28/24 12:28 X-Ray, Labs, Meds, VS Comment CHEST RADIOGRAPH Indication: sob Technique: Single frontal view of the chest was obtained COMPARISON: XY CHEST TWO VIEWS ROUTINE on DOS: 09/03/24, XY CHEST PORTABLE on DOS: 03/14/24, CHEST XRAY 1 VIEW on DOS: 09/09/19 FINDINGS: Lines and Tubes: None Lungs: Clear Pleura: No effusion. No pneumothorax. Cardiomediastinal contours: Cardiomegaly Bones: Unremarkable IMPRESSION: Cardiomegaly Images Reviewed?: Images reviewed and evaluated by me Time of 1ST Reevaluation: 15:20 Reevaluation 1ST: Unchanged Patient Education/Counseling: Diagnosis, Treatment Family Education/Counseling: No Family Present SEPSIS Sepsis Screen Date sepsis recognized/suspect: Sep 28, 2024 Time Sepsis recognized/suspect: 1036 Recent Procedure: No On Antibiotic Therapy: No Respiratory Rate >20: No Heart Rate >90: No Temp<36 C (96.8 F) or >38.3 C: No SBP <90 or MAP <65 mmHG: No New Acute Mental Status Change: No Is the patient on CPAP, BIPAP,: No Physician Orders Chest Portable (09/28/24 10:54) Saline Lock (09/28/24 11:29) Vital Signs Date Time Temp Pulse Resp B/P (MAP) Pulse Ox O2 Delivery O2 Flow Rate FiO2 09/28/24 14:33 98.2 93 18 112/67 (82) 97 98.2 09/28/24 12:32 74 20 98 Room Air* 0 21 09/28/24 12:28 105/65 09/28/24 12:16 91 19 97 Room Air 09/28/24 12:16 98.0 91 19 105/65 (78) 97 98.0 09/28/24 10:33 97.4 87 17 106/72 98 97.4 Laboratory Tests Test 09/28/24 11:28 White Blood Count 5.4 10^3/uL (4.4-10.8) Medications Medications Dose Ordered Sig/Wilder Route Start Time Stop Time Status Last Admin Dose Admin Furosemide 40 mg ONCE ONCE IV 09/28/24 11:00 09/28/24 11:11 DC 09/28/24 12:28 Departure 1 Departure Time of Disposition: 15:24 Impression: Primary Impression: Acute exacerbation of congestive heart failure Additional Impression: Acute kidney injury superimposed on CKD Disposition: 30 STILL A PATIENT Admit to: Med Surg Condition: Guarded Critical Care Note Critical Care Time?: No Stability Stability form required: FERCHO Hassan RESIDENT Sep 28, 2024 11:01
--- NOTE | 2024-09-28 11:16 | DVH ---
CHEST RADIOGRAPH Indication: sob Technique: Single frontal view of the chest was obtained COMPARISON: XY CHEST TWO VIEWS ROUTINE on DOS: 09/03/24, XY CHEST PORTABLE on DOS: 03/14/24, CHEST XRAY 1 VIEW on DOS: 09/09/19 FINDINGS: Lines and Tubes: None Lungs: Clear Pleura: No effusion. No pneumothorax. Cardiomediastinal contours: Cardiomegaly Bones: Unremarkable IMPRESSION: Cardiomegaly
[2024-09-28 11:59] LABS: Hematocrit 38.5 % (41.0-53.0); Hemoglobin 12.6 g/dL (13.5-17.5); Mean Corpuscular Hemoglobin 28.8 pg (28.0-32.0); Mean Corpuscular Volume 88.0 fL (80.0-100.0)
[2024-09-28 12:06] LABS: Potassium 3.8 mmol/L (3.5-5.1); Sodium 140 mmol/L (136-145)
[2024-09-28 12:07] LABS: Anion Gap 8 (5-15); Carbon Dioxide 25 mmol/L (20-31); Chloride 107 mmol/L (98-107)
[2024-09-28 12:08] LABS: Calcium 8.4 mg/dL (8.7-10.4)
[2024-09-28 12:12] LABS: Glucose 98 mg/dL (74-106)
[2024-09-28 12:13] LABS: BUN/Creatinine Ratio 19.4 (10.0-20.0)
[2024-09-28 12:16] LABS: Blood Urea Nitrogen 32 mg/dL (9-23)
[2024-09-28] MEDS: FUROSEMIDE 40 MG/4 ML VIAL IV ONE (12:28)
[2024-09-28 12:32] VITALS: PULSE 74; RESP 20; O2SAT 98
[2024-09-28 12:46] LABS: Urine Protein, UAD Negative (Negative)
[2024-09-28 12:58] LABS: Total Cells Counted 100.0 (100)
[2024-09-28 13:08] LABS: Amphetamine Screen, Urine Pos (NEGATIVE); Barbiturate Scree,Urine Neg (NEGATIVE); Benzodiazephine Screen, Urine Neg (NEGATIVE); Cannabinoid Screen, Urine Neg (NEGATIVE); Cocaine Screen, Urine Neg (NEGATIVE); Opiate Scree,Urine Neg (NEGATIVE); Phencyclidine Screen, Urine Neg (NEGATIVE)
[2024-09-28 13:35] LABS: COVID19 ANTIGEN SOFIA FIA NEGATIVE (NEGATIVE)
--- NOTE | 2024-09-28 20:19 | DVHHP2 ---
Admitting Diagnosis: Shortness of breaths History of Present Illness This is a 49 years old male with past medical history of CHF, bronchial asthma, CKD stage 3, methamphetamine abuse presented to the ED with a chief complaint of shortness of breath, cough, fatigue, chills since yesterday prior to this visit. The patient also complaining of bilateral leg swelling for last 1 weeks despite taking his water pill. He is noncompliant with sodium restricted diet and last methamphetamine use was 2 days ago. He was admitted in the hospital 2 weeks ago with exacerbation of CHF and his EF is only 10-15%. Denies chest pain, fever, dizziness, blurred vision, abdominal pain, nausea, vomiting or any change in bowel and bladder habit. PCP: Dr. Koehler PAST MEDICAL HISTORY: Asthma, CHF, CKF, HTN Surgical History (Other): Left knee surgery Family History Family History: Reviewed,noncontributory to illness Social History Smoker: Cigarettes, Greater Than 1 Pack/Day Alcohol: Denies ETOH Use Drugs: Methamphetamine Lives In: Home Patient Family History: Asthma G8 MOTHER Cerebrovascular accident (CVA) G8 FATHER FH: heart attack G8 FATHER Allergies: Coded Allergies: NO KNOWN ALLERGIES (Unverified , 08/25/10) Home Meds Active Scripts Carvedilol (COREG) 3.125 Mg Tab, 6.25 MG OR BID for 30 Days, #120 TAB Prov:NAILA NIEVES RESIDENT 09/06/24 Levofloxacin Hemihydrate (LEVOFLOXACIN) 750 Mg Tab, 1 TAB PO DAILY, #5 TAB Prov:RICHARDSON FAGAN RESIDENT 03/16/24 Furosemide (Furosemide) 40 Mg Tab, 40 MG PO BID for 30 Days, #60 TAB Prov:RICHARDSON FAGAN [facility] [place] 03/16/24 Spironolactone (Aldactone) 25 Mg Tab, 12.5 MG PO DAILY for 30 Days, #15 TAB Prov:RICHARDSON FAGAN [facility] [place] 03/16/24 Acetaminophen (Acetaminophen) 325 Mg Tab, 650 MG PO Q6HP PRN for 30 Days, #240 TAB Prov:RICHARDSON FAGAN 03/16/24 Aspirin (Aspirin Low Dose) 81 Mg Tab, 81 MG PO DAILY for 30 Days, #30 TAB Prov:RICHARDSON FAGAN 03/16/24 Atorvastatin Calcium (ATORVASTATIN CALCIUM) 20 Mg Tab, 10 MG PO HS for 30 Days, #15 TAB Prov:RICHARDSON FAGAN RESIDENT 03/16/24 Empagliflozin (Jardiance) 10 Mg Tab, 10 MG PO DAILY for 30 Days, #30 TAB Prov:RICHARDSON FAGAN RESIDENT 03/16/24 Vital Signs Vital Signs Date Time Temp Pulse Resp B/P (MAP) Pulse Ox O2 Delivery O2 Flow Rate FiO2 09/28/24 17:56 98.4 90 16 123/71 (88) 96 98.4 09/28/24 12:32 Room Air* 0 21 Physical Exam Generally-49 years old male, well nourished well developed. No apparent distress HEENT-atraumatic normocephalic Heart-regular rate and rhythm Lungs decreased breath sounds bilaterally Abdomen Soft nontender nondistended Musculoskeletal-no edema cyanosis Neuro-AO x3, no focal deficits SEPSIS Sepsis Screen Date sepsis recognized/suspect: Sep 28, 2024 Time Sepsis recognized/suspect: 1036 Recent Procedure: No On Antibiotic Therapy: No Respiratory Rate >20: No Heart Rate >90: No Temp<36 C (96.8 F) or >38.3 C: No SBP <90 or MAP <65 mmHG: No New Acute Mental Status Change: No Is the patient on CPAP, BIPAP,: No Physician Orders Chest Portable (09/28/24 10:54) Saline Lock (09/28/24 11:29) Regular Diet (09/28/24 Dinner) Heparin Per Pharmacy Protocol (09/28/24 20:18) Cardiac Diet-2gna,Lofat,Lochol (09/29/24 Breakfast) Daily Weight (09/28/24 20:40) Strict I & O QSHIFT (09/28/24 20:40) Maintain Fluid Restrictions QSHIFT (09/28/24 20:40) Complete Blood Count (09/29/24 05:00) Complete Blood Count (09/30/24 05:00) Complete Blood Count (10/01/24 05:00) Complete Blood Count (10/02/24 05:00) Complete Blood Count (10/03/24 05:00) Comprehensive Metabolic Panel (09/29/24 05:00) Comprehensive Metabolic Panel (09/30/24 05:00) Comprehensive Metabolic Panel (10/01/24 05:00) Comprehensive Metabolic Panel (10/02/24 05:00) Comprehensive Metabolic Panel (10/03/24 05:00) Magnesium (09/29/24 05:00) Magnesium (09/30/24 05:00) Magnesium (10/01/24 05:00) Magnesium (10/02/24 05:00) Magnesium (10/03/24 05:00) Echo 2d Mode Cardiac Dop (09/28/24 20:40) Admit (09/28/24 20:40) Code Status (09/28/24 20:40) Vital Signs .PER UNIT PROTOCOL (09/28/24 20:40) Review Orders With Adm.Md (09/28/24 20:40) Encourage Activity As Tolerate (09/28/24 20:40) Sodium Chloride Lock (Saline Lock Ns) (09/28/24 22:00) Docusate Sodium Capsule (Colace Capsule) (09/28/24 20:45) Acetaminophen Tablet (Tylenol Tablet) (09/28/24 20:45) Notify Md Of Changes From Base (09/28/24 20:40) Advance Directive (09/28/24 20:40) Patient Condition (09/28/24 20:40) Allergies (09/28/24 20:40) Hydrocodone-Acet 5/325mg Tab ([place] 5/32 (09/28/24 20:45) Ondansetron Hcl (Zofran) (09/28/24 20:45) Furosemide Injection (Lasix Injection) (09/29/24 06:00) Aspirin Enteric Coated Tablet (Ecotrin E (09/29/24 10:00) Atorvastatin (Lipitor) (09/28/24 22:00) Carvedilol Tablet (Coreg Tablet) (09/28/24 22:00) Empagliflozin (Jardiance) (09/29/24 10:00) Spironolactone (Aldactone) (09/29/24 10:00) Vital Signs Date Time Temp Pulse Resp B/P (MAP) Pulse Ox O2 Delivery O2 Flow Rate FiO2 09/28/24 17:56 98.4 90 16 123/71 (88) 96 98.4 09/28/24 14:33 98.2 93 18 112/67 (82) 97 98.2 09/28/24 12:32 74 20 98 Room Air* 0 21 09/28/24 12:28 105/65 09/28/24 12:16 91 19 97 Room Air 09/28/24 12:16 98.0 91 19 105/65 (78) 97 98.0 09/28/24 10:33 97.4 87 17 106/72 98 97.4 Laboratory Tests Test 09/28/24 11:28 White Blood Count 5.4 10^3/uL (4.4-10.8) Medications Medications Dose Ordered Sig/Wilder Route Start Time Stop Time Status Last Admin Dose Admin Furosemide 40 mg ONCE ONCE IV 09/28/24 11:00 09/28/24 11:11 DC 09/28/24 12:28 Results Labs Test 09/28/24 12:06 09/28/24 11:28 Range/Units Urine Color Colorless Yellow Urine Clarity Clear Clear Urine pH 5.0 5.0-9.0 Urine Specific [place] 1.009 1.001-1.035 Urine Protein Negative Negative Urine Ketones Negative Negative Urine Blood Negative Negative /uL Urine Nitrite Negative Negative Urine Bilirubin Negative Negative Urine Urobilinogen Normal Negative mg/dL Urine Leukocyte Esterase Negative Negative /uL Urine RBC <1 0 - 3 /hpf Urine Microscopic WBC < 1 0-3 /HPF Urine Squamous Epithelial Cells None seen <5 /hpf Urine Bacteria None seen None Seen /hpf Urine Glucose Normal Normal mg/dL Urine Opiates Screen Neg NEGATIVE Urine Fentanyl Screen Neg NEGATIVE Urine Barbiturates Screen Neg NEGATIVE Urine Phencyclidine Screen Neg NEGATIVE Urine Amphetamines Screen Pos NEGATIVE Urine Benzodiazepines Screen Neg NEGATIVE Urine Cocaine Screen Neg NEGATIVE Urine Cannabinoids Screen Neg NEGATIVE Influenza Type A Antigen Negative Negative Influenza Type B Antigen Negative Negative SARS-CoV-2 Antigen (Rapid) Negative NEGATIVE White Blood Count 5.4 4.4-10.8 10^3/uL Red Blood Count 4.38 L 4.5-5.90 10^6/uL Hemoglobin 12.6 L 13.5-17.5 g/dL Hematocrit 38.5 L 41.0-53.0 % Mean Corpuscular Volume 88.0 80.0-100.0 fL Mean Corpuscular Hemoglobin 28.8 28.0-32.0 pg Mean Corpuscular Hemoglobin Concent 32.7 32.0-36.0 g/dL Red Cell Distribution Width 19.8 H 11.8-14.3 % Platelet Count 190 140-450 10^3/uL Mean Platelet Volume 7.8 6.9-10.8 fL Neutrophils (%) (Auto) 37.0-80.0 % Lymphocytes (%) (Auto) 10.0-50.0 % Monocytes (%) (Auto) 0.0-12.0 % Basophils (%) (Auto) 0.0-2.0 % Neutrophils # (Auto) 1.6-8.6 10 ^3/uL Lymphocytes # (Auto) 0.4-5.4 10 ^3/uL Monocytes # (Auto) 0-1.3 10 ^3/uL Differential Total Cells Counted 100.0 100 Neutrophils % (Manual) 57 37.0-80.0 Band Neutrophils % (Manual) 0 Lymphocytes % (Manual) 14 10.0-50.0 Monocytes % (Manual) 21 H 0-12 Eosinophils % (Manual) 7 0-7 Basophils % (Manual) 0 0.0-2.0 Metamyelocytes % (manual) 0 Myelocytes % (Manual) 0 Promyelocytes % (Manual) 0 Blast Cells % (Manual) 1 Reactive Lymphocytes 0 Platelet Estimate Adequate Sodium Level 140 136-145 mmol/L Potassium Level 3.8 3.5-5.1 mmol/L Chloride Level 107 98-107 mmol/L Carbon Dioxide Level 25 20-31 mmol/L Anion Gap 8 5-15 Blood Urea Nitrogen 32 H 9-23 mg/dL Creatinine 1.65 H 0.700-1.30 mg/dL Glomerular Filtration Rate Calc 51 >90 mL/min BUN/Creatinine Ratio 19.4 10.0-20.0 Serum Glucose 98 74-106 mg/dL Calcium Level 8.4 L 8.7-10.4 mg/dL Troponin I High Sensitivity 42 </=54 ng/L B-Type Natriuretic Peptide 1876.48 0-100 pg/mL Primary Diagnosis Shortness of breaths likely due to CHF exacerbation Substance abuse Plan IV Lasix b.i.d. 40 mg Daily weight Strict in and out Fluid restriction Potassium greater than four, magnesium greater than two nephro consult Echocardiogram trend renal function full code lovenox for dvt ppx no gi ppx needed cardiac diet Plan discussed with: Patient Problems List: (1) Acute exacerbation of congestive heart failure (2) Acute kidney injury superimposed on CKD Status: Acute Date of Service: Sep 28, 2024 Billing Provider: ARVIND ARREOLA MD Common Visit Codes: [id number] INP/OBS CARE (HIGH) ARVIND ARREOLA MD Sep 28, 2024 20:19
[2024-09-28] MEDS ORDERED: DOCUSATE SOD 100 MG CAP PO PRN (20:45)
[2024-09-28] MEDS ORDERED: ONDANSETRON HCL 4 MG/2 ML VIAL IV PRN (20:45)
[2024-09-28 23:20] VITALS: BP 118/83; PULSE 91; RESP 21; TEMP 98.3; O2SAT 98
[2024-09-28 23:41] VITALS: O2SAT 98
[2024-09-28] MEDS: ATORVASTATIN 20 MG TAB PO SCH (23:50)
[2024-09-28] MEDS: CARVEDILOL 3.125 MG TAB PO SCH (23:50)
[2024-09-28] MEDS: SODIUM CHLOR 0.9% PF (SALINE LOCK) 10ML VIAL/SYR IV SCH (23:50)
[2024-09-29] VITALS (9 sets, daily range): BP systolic 110–128; BP diastolic 70–87; PULSE 66–94; RESP 16–24; TEMP 97.5–98.1; O2SAT 95–100
[2024-09-29] MEDS: FUROSEMIDE 40 MG/4 ML VIAL IV SCH (05:16)
[2024-09-29 07:33] LABS: Hematocrit 40.3 % (41.0-53.0); Hemoglobin 13.5 g/dL (13.5-17.5); Mean Corpuscular Hemoglobin 29.2 pg (28.0-32.0); Mean Corpuscular Volume 86.9 fL (80.0-100.0)
[2024-09-29 07:45] LABS: Alanine Aminotransferase 32 U/L (7-40); Anion Gap 11 (5-15); BUN/Creatinine Ratio 18.6 (10.0-20.0); Calcium 8.8 mg/dL (8.7-10.4); Carbon Dioxide 26 mmol/L (20-31); Chloride 104 mmol/L (98-107); Glucose 97 mg/dL (74-106); Magnesium 2.4 mg/dL (1.6-2.6); Potassium 4.1 mmol/L (3.5-5.1); Sodium 141 mmol/L (136-145); Total Protein 6.9 g/dL (5.7-8.2)
[2024-09-29 07:46] LABS: Albumin 4.0 g/dL (3.2-4.8)
[2024-09-29 07:49] LABS: Alkaline Phosphatase 187 U/L (46-116); Bilirubin, Total 1.3 mg/dL (0.2-1.0); Blood Urea Nitrogen 31 mg/dL (9-23)
[2024-09-29 08:11] LABS: Total Cells Counted 100.0 (100)
[2024-09-29] MEDS: ASPirin-EC 81 mg tab PO SCH (11:42)
[2024-09-29] MEDS: EMPAGLIFLOZIN 10 MG TAB PO SCH (11:43)
[2024-09-29] MEDS: SPIRONOLACTONE 25 MG TAB PO SCH (11:44)
--- NOTE | 2024-09-29 15:57 | DVHINCON2 ---
Date of service: Sep 29, 2024 Referring Physician Ben Solano MD Reason for Consultation Acute kidney injury History of Present Illness Mr. Dunlap is a 49-year-old male with known history of chronic heart failure with reduced ejection fraction, methamphetamine misuse, hypertension who presented for further evaluation and management of worsening dyspnea. Current consultation requested due to elevated serum creatinine, his creatinine has been in the high one range, and has downtrended slightly from creatinine of two last month. He was seen in his room he is markedly somnolent and difficult to arouse currently in his only awake transiently. He is in no acute respiratory distres s. Past Medical History Heart failure with reduced ejection fraction Hypertension Dyslipidemia Methamphetamine misuse Allergies: Coded Allergies: NO KNOWN ALLERGIES (Unverified , 08/25/10) Home Meds Active Scripts Carvedilol (COREG) 3.125 Mg Tab, 6.25 MG OR BID for 30 Days, #120 TAB Prov:NAILA NIEVES RESIDENT 09/06/24 Levofloxacin Hemihydrate (LEVOFLOXACIN) 750 Mg Tab, 1 TAB PO DAILY, #5 TAB Prov:RICHARDSON FAGAN RESIDENT 03/16/24 Furosemide (Furosemide) 40 Mg Tab, 40 MG PO BID for 30 Days, #60 TAB Prov:RICHARDSON FAGAN [facility] 03/16/24 Spironolactone (Aldactone) 25 Mg Tab, 12.5 MG PO DAILY for 30 Days, #15 TAB Prov:RICHARDSON FAGAN [facility] 03/16/24 Acetaminophen (Acetaminophen) 325 Mg Tab, 650 MG PO Q6HP PRN for 30 Days, #240 TAB Prov:RICHARDSON FAGAN [facility] 03/16/24 Aspirin (Aspirin Low Dose) 81 Mg Tab, 81 MG PO DAILY for 30 Days, #30 TAB Prov:RICHARDSON FAGAN [facility] 03/16/24 Atorvastatin Calcium (ATORVASTATIN CALCIUM) 20 Mg Tab, 10 MG PO HS for 30 Days, #15 TAB Prov:RICHARDSON FAGAN [facility] 03/16/24 Empagliflozin (Jardiance) 10 Mg Tab, 10 MG PO DAILY for 30 Days, #30 TAB Prov:RICHARDSON FAGAN [facility] 03/16/24 Current Medications Current Medications Medications (Trade) Dose Ordered Sig/Wilder Route PRN Reason Start Time Stop Time Status Last Admin Sodium Chloride (Saline Lock Ns) 10 ml Q8HR IV 09/28/24 22:00 09/29/24 11:43 Docusate Sodium (Colace Capsule) 100 mg BIDPRN PRN PO FOR CONSTIPATION 09/28/24 20:45 Acetaminophen (Tylenol Tablet) 650 mg Q6HP PRN PO PAIN SCALE 1-3 OR TEMP>100.4 09/28/24 20:45 Acetaminophen/ Hydrocodone Bitart (Joanna 5/325MG Tab) 1 tab Q4HP PRN PO MODERATE PAIN (4-6 PAIN SCALE) 09/28/24 20:45 Ondansetron HCl (Zofran) 4 mg Q4HP PRN IV NAUSEA / VOMITING 09/28/24 20:45 Furosemide (Lasix Injection) 40 mg BIDD IV 09/29/24 06:00 09/29/24 05:16 Aspirin (Ecotrin Enteric Coated Tablet) 81 mg DAILY PO 09/29/24 10:00 09/29/24 11:42 Atorvastatin Calcium (Lipitor) 10 mg HS PO 09/28/24 22:00 09/28/24 23:50 Carvedilol (Coreg Tablet) 6.25 mg BID PO 09/28/24 22:00 09/29/24 11:43 Empaglifozin (Jardiance) 10 mg DAILY PO 09/29/24 10:00 09/29/24 11:43 Spironolactone (Aldactone) 12.5 mg DAILY PO 09/29/24 10:00 09/29/24 11:44 Family History: Asthma G8 MOTHER Cerebrovascular accident (CVA) G8 FATHER FH: heart attack G8 FATHER Review of Systems For review of systems unable to be obtained due to patient's somnolence H&P Exam Vital Signs/I&O Vital Sign Date Time Temp Pulse Resp B/P (MAP) Pulse Ox O2 Delivery O2 Flow Rate FiO2 09/29/24 12:41 98.1 87 16 128/87 (101) 95 98.1 09/29/24 08:30 Room Air* 0 21 Intake and Output 09/28/24 09/29/24 19:00 07:00 Intake Total 350 ml Output Total 700 ml Balance -350 ml Intake Oral 350 ml Output Urine Total 700 ml Physical Exam Gen: nad, supine heent: nc/at, mmm lungs: cta anteriorly cvs: no rub abd: soft, bowel sounds audible ext: + edema skin: no rash neuro: Somnolent Labs/Diagnostic Data Labs/Diagnostic Data Laboratory Tests Test 09/29/24 06:26 09/28/24 12:06 09/28/24 11:28 Range/Units White Blood Count 5.4 5.4 4.4-10.8 10^3/uL Red Blood Count 4.63 4.38 L 4.5-5.90 10^6/uL Hemoglobin 13.5 12.6 L 13.5-17.5 g/dL Hematocrit 40.3 L 38.5 L 41.0-53.0 % Mean Corpuscular Volume 86.9 88.0 80.0-100.0 fL Mean Corpuscular Hemoglobin 29.2 28.8 28.0-32.0 pg Mean Corpuscular Hemoglobin Concent 33.6 32.7 32.0-36.0 g/dL Red Cell Distribution Width 19.5 H 19.8 H 11.8-14.3 % Platelet Count 194 190 140-450 10^3/uL Mean Platelet Volume 7.7 7.8 6.9-10.8 fL Neutrophils (%) (Auto) 37.0-80.0 % Lymphocytes (%) (Auto) 10.0-50.0 % Monocytes (%) (Auto) 0.0-12.0 % Basophils (%) (Auto) 0.0-2.0 % Neutrophils # (Auto) 1.6-8.6 10 ^3/uL Lymphocytes # (Auto) 0.4-5.4 10 ^3/uL Monocytes # (Auto) 0-1.3 10 ^3/uL Differential Total Cells Counted 100.0 100.0 100 Neutrophils % (Manual) 51 57 37.0-80.0 Band Neutrophils % (Manual) 3 0 Lymphocytes % (Manual) 27 14 10.0-50.0 Monocytes % (Manual) 17 H 21 H 0-12 Eosinophils % (Manual) 2 7 0-7 Basophils % (Manual) 0 0 0.0-2.0 Metamyelocytes % (manual) 0 0 Myelocytes % (Manual) 0 0 Promyelocytes % (Manual) 0 0 Blast Cells % (Manual) 0 1 Reactive Lymphocytes 0 0 Platelet Estimate Adequate Adequate Sodium Level 141 140 136-145 mmol/L Potassium Level 4.1 3.8 3.5-5.1 mmol/L Chloride Level 104 107 98-107 mmol/L Carbon Dioxide Level 26 25 20-31 mmol/L Anion Gap 11 8 5-15 Blood Urea Nitrogen 31 H 32 H 9-23 mg/dL Creatinine 1.67 H 1.65 H 0.700-1.30 mg/dL Glomerular Filtration Rate Calc 50 51 >90 mL/min BUN/Creatinine Ratio 18.6 19.4 10.0-20.0 Serum Glucose 97 98 74-106 mg/dL Calcium Level 8.8 8.4 L 8.7-10.4 mg/dL Magnesium Level 2.4 1.6-2.6 mg/dL Total Bilirubin 1.3 H 0.2-1.0 mg/dL Aspartate Amino Transferase (AST) 32 13-40 U/L Alanine Aminotransferase (ALT) 32 7-40 U/L Alkaline Phosphatase 187 H 46-116 U/L Total Protein 6.9 5.7-8.2 g/dL Albumin 4.0 3.2-4.8 g/dL Urine Color Colorless Yellow Urine Clarity Clear Clear Urine pH 5.0 5.0-9.0 Urine Specific [place] 1.009 1.001-1.035 Urine Protein Negative Negative Urine Ketones Negative Negative Urine Blood Negative Negative /uL Urine Nitrite Negative Negative Urine Bilirubin Negative Negative Urine Urobilinogen Normal Negative mg/dL Urine Leukocyte Esterase Negative Negative /uL Urine RBC <1 0 - 3 /hpf Urine Microscopic WBC < 1 0-3 /HPF Urine Squamous Epithelial Cells None seen <5 /hpf Urine Bacteria None seen None Seen /hpf Urine Glucose Normal Normal mg/dL Urine Opiates Screen Neg NEGATIVE Urine Fentanyl Screen Neg NEGATIVE Urine Barbiturates Screen Neg NEGATIVE Urine Phencyclidine Screen Neg NEGATIVE Urine Amphetamines Screen Pos NEGATIVE Urine Benzodiazepines Screen Neg NEGATIVE Urine Cocaine Screen Neg NEGATIVE Urine Cannabinoids Screen Neg NEGATIVE Influenza Type A Antigen Negative Negative Influenza Type B Antigen Negative Negative SARS-CoV-2 Antigen (Rapid) Negative NEGATIVE Troponin I High Sensitivity 42 </=54 ng/L B-Type Natriuretic Peptide 1876.48 0-100 pg/mL Assessment IMP: 1) Hemodynamically mediated acute kidney injury / prerenal etiology, possible cardiorenal syndrome 2) heart failure with reduced ejection fraction 3) chronic kidney disease stage IIIB 4) methamphetamine misuse REC: - patient with signs of volume overload on exam - use of loop diuretic to achieve desired ECF fluid volume - avoidance of NSAIDs, intravenous contrast studies if able - we will check urine studies, serial chemistry panels - agree with current plan of care we will continue to follow closely with you. Thank you for the consultation. Plan discussed with: Other ANGIE MOYER MD Sep 29, 2024 15:57
--- NOTE | 2024-09-29 16:16 | DVHPN2 ---
Reviewed: Care Plan, H&P, Labs, Medications, Previous Orders, Radiology, Other (Consultantion ) Changes from previous H/P or p: No Changes Objective Vitals Vital Signs Date Time Temp Pulse Resp B/P (MAP) Pulse Ox O2 Delivery O2 Flow Rate FiO2 09/29/24 12:41 98.1 87 16 128/87 (101) 95 98.1 09/29/24 08:30 Room Air* 0 21 Intake/Output Intake and Output 09/29/24 07:00 Intake Total 350 ml Output Total 700 ml Balance -350 ml Intake Oral 350 ml Output Urine Total 700 ml Medications Current Medications Medications Dose Ordered Sig/Wilder Route Start Time Stop Time Status Last Admin Dose Admin Sodium Chloride 10 ml Q8HR IV 09/28/24 22:00 09/29/24 11:43 10 ML Docusate Sodium 100 mg BIDPRN PRN PO 09/28/24 20:45 Acetaminophen 650 mg Q6HP PRN PO 09/28/24 20:45 Acetaminophen/ Hydrocodone Bitart 1 tab Q4HP PRN PO 09/28/24 20:45 Ondansetron HCl 4 mg Q4HP PRN IV 09/28/24 20:45 Furosemide 40 mg BIDD IV 09/29/24 06:00 09/29/24 05:16 40 MG Aspirin 81 mg DAILY PO 09/29/24 10:00 09/29/24 11:42 81 MG Atorvastatin Calcium 10 mg HS PO 09/28/24 22:00 09/28/24 23:50 10 MG Carvedilol 6.25 mg BID PO 09/28/24 22:00 09/29/24 11:43 6.25 MG Empaglifozin 10 mg DAILY PO 09/29/24 10:00 09/29/24 11:43 10 MG Spironolactone 12.5 mg DAILY PO 09/29/24 10:00 09/29/24 11:44 12.5 MG Laboratory Results Laboratory Tests 09/29/24 06:26 Chemistry Test 09/29/24 06:26 Albumin 4.0 g/dL (3.2-4.8) Calcium Level 8.8 mg/dL (8.7-10.4) Magnesium Level 2.4 mg/dL (1.6-2.6) Total Protein 6.9 g/dL (5.7-8.2) LFT Test 09/29/24 06:26 Alanine Aminotransferase (ALT) 32 U/L (7-40) Alkaline Phosphatase 187 U/L (46-116) H Aspartate Amino Transferase (AST) 32 U/L (13-40) Total Bilirubin 1.3 mg/dL (0.2-1.0) H Urinalysis Test 09/28/24 12:06 Urine Color Colorless (Yellow) Urine Clarity Clear (Clear) Urine pH 5.0 (5.0-9.0) Urine Specific [place] 1.009 (1.001-1.035) Urine Protein Negative (Negative) Urine Ketones Negative (Negative) Urine Blood Negative /uL (Negative) Urine Nitrite Negative (Negative) Urine Bilirubin Negative (Negative) Urine Urobilinogen Normal mg/dL (Negative) Urine Leukocyte Esterase Negative /uL (Negative) Urine RBC <1 /hpf (0 - 3) Urine Microscopic WBC < 1 /HPF (0-3) Urine Squamous Epithelial Cells None seen /hpf (<5) Urine Bacteria None seen /hpf (None Seen) Urine Glucose Normal mg/dL (Normal) Assessment/Plan Assessment/Plan A 49-year-old male patient; with multiple comorbidities; who presented to the emergency department with shortness of breath. Acute hypoxic respiratory failure due to acute on chronic congestive heart failure Acute on chronic congestive heart failure JATIN; most likely vasomotor nephropathy Polysubstance use disorder Reviewed lab work and available imaging studies Continue IV diuresis Avoid nephrotoxic agents Counseled the patient for 22 minutes on methamphetamine and tobacco use cessation; 14 minutes exclusively for tobacco use cessation Nephrology is following Continue oxygen therapy as needed Continue monitoring Echocardiogram from September 04, 2024: LVEF severely reduced at 10-15%, global hypokinesis, moderate dilated LV Right ventriclemoderately dilated and moderately hypokinetic Right and left atrium moderately dilated Severe mitral regurgitation severe tricuspid regurgitation, moderate pulmonary hypertension IVC dilated Goals of care discussed with the patient for 20 minutes; full code Late Entry. This medical document was created using an electronic medical record system with computerized dictation system. Although this document has been carefully reviewed, there might still be some phonetic and typographical errors. These areas are purely typographical due to imperfections of the software programs, and do not reflect any compromise in the patient's medical care. Plan discussed with: Patient, Other (Nurse) Date of Service: Sep 29, 2024 Billing Provider: LOKESH MOURA MD Common Visit Codes: [id number] INP/OBS CARE(HIGH) Secondary Visit Codes: [id number] CHNG SMOKING >10MIN (22 minutes for methamphetamine and tobacco use cessation; 14 minutes exclusively for tobacco use cessation), 44701-[id number] CARE PLAN 30 MINUTES (20 minutes) LOKESH MOURA MD Sep 29, 2024 16:16
[2024-09-29] MEDS: ALBUTEROL SULF 2.5 MG/0.5ML(0.5%) NEB SOLN NEB PRN (22:03)
[2024-09-29] MEDS: IPRATROPIUM BROM 0.5 MG/2.5ML INH SOL NEB PRN (22:03)
--- NOTE | 2024-09-29 22:05 | DVH ---
CHEST RADIOGRAPH Indication: Difficulty breathing Technique: Single frontal view of the chest was obtained Comparison: XY CHEST PORTABLE on DOS: 09/28/24, XY CHEST TWO VIEWS ROUTINE on DOS: 09/03/24, XY CHEST POR TABLE on DOS: 03/14/24, CHEST XRAY 1 VIEW on DOS: 09/09/19 FINDINGS: Lines and Tubes: None Lungs: Similar scattered areas of hazy airspace opacity within the lung bases. No dense consolidatio n. Pleura: No effusion or pneumothorax. Cardiomediastinal contours: Unchanged, enlarged. Bones: No acute osseous abnormality. IMPRESSION: 1. No significant change from the previous day. Mild basilar airspace opacities favoring scarring/ate lectasis. Cardiomegaly.
[2024-09-29] MEDS: ACETAMINOPHEN 325 MG TAB PO PRN (22:45)
[2024-09-30] VITALS (10 sets, daily range): BP systolic 93–124; BP diastolic 63–88; PULSE 57–107; RESP 18–22; TEMP 97.5–99; O2SAT 95–99
[2024-09-30 05:01] LABS: Hematocrit 40.3 % (41.0-53.0); Hemoglobin 13.4 g/dL (13.5-17.5); Mean Corpuscular Hemoglobin 29.1 pg (28.0-32.0); Mean Corpuscular Volume 87.5 fL (80.0-100.0)
[2024-09-30 05:22] LABS: Alanine Aminotransferase 35 U/L (7-40); Albumin 3.8 g/dL (3.2-4.8); Anion Gap 11 (5-15); BUN/Creatinine Ratio 16.5 (10.0-20.0); Carbon Dioxide 26 mmol/L (20-31); Chloride 103 mmol/L (98-107); Magnesium 2.4 mg/dL (1.6-2.6); Potassium 3.9 mmol/L (3.5-5.1); Sodium 140 mmol/L (136-145); Total Protein 6.5 g/dL (5.7-8.2)
[2024-09-30 05:23] LABS: Bilirubin, Total 1.1 mg/dL (0.2-1.0)
[2024-09-30 05:37] LABS: Alkaline Phosphatase 207 U/L (46-116); Blood Urea Nitrogen 29 mg/dL (9-23); Calcium 8.5 mg/dL (8.7-10.4); Glucose 150 mg/dL (74-106)
[2024-09-30 07:25] LABS: Total Cells Counted 100.0 (100)
[2024-09-30 07:26] LABS: Anisocytosis Slight
[2024-09-30] MEDS: HYDROcodone-ACET 5/325MG TAB PO PRN (09:14)
--- NOTE | 2024-09-30 14:54 | DVHPN2 ---
Progress Note Date Seen: Sep 30, 2024 Medical Necessity Reason Pt with a Central, PICC or Fol: No Subjective Patient reports: No new complaints Objective vital signs Vital Sign Date Time Temp Pulse Resp B/P (MAP) Pulse Ox O2 Delivery O2 Flow Rate FiO2 09/30/24 13:00 99.0 94 20 114/83 (93) 98 99.0 09/30/24 10:00 Nasal Cannula 3.0 09/30/24 10:00 32 Total Intake and Output 09/29/24 09/29/24 09/30/24 15:00 23:00 07:00 Intake Total 800 ml 525 ml Output Total 3025 ml 500 ml Balance -2225 ml 25 ml medications Current Medications Medications Dose Ordered Sig/Wilder Route Start Time Stop Time Status Last Admin Dose Admin Sodium Chloride 10 ml Q8HR IV 09/28/24 22:00 09/30/24 13:58 10 ML Docusate Sodium 100 mg BIDPRN PRN PO 09/28/24 20:45 Acetaminophen 650 mg Q6HP PRN PO 09/28/24 20:45 09/29/24 22:45 650 MG Acetaminophen/ Hydrocodone Bitart 1 tab Q4HP PRN PO 09/28/24 20:45 09/30/24 13:58 1 TAB Ondansetron HCl 4 mg Q4HP PRN IV 09/28/24 20:45 Furosemide 40 mg BIDD IV 09/29/24 06:00 09/30/24 05:49 40 MG Aspirin 81 mg DAILY PO 09/29/24 10:00 09/30/24 09:14 81 MG Atorvastatin Calcium 10 mg HS PO 09/28/24 22:00 09/29/24 21:26 10 MG Carvedilol 6.25 mg BID PO 09/28/24 22:00 09/30/24 09:15 6.25 MG Empaglifozin 10 mg DAILY PO 09/29/24 10:00 09/30/24 09:15 10 MG Spironolactone 12.5 mg DAILY PO 09/29/24 10:00 09/30/24 09:14 12.5 MG Albuterol 2.5 mg Q6HPRN PRN NEB 09/29/24 21:15 09/29/24 22:03 2.5 MG Ipratropium Doyle 0.5 mg Q6HPRN PRN NEB 09/29/24 21:15 09/29/24 22:03 0.5 MG Guaifenesin/ Codeine Phosphate 5 ml Q4HPRN PRN PO 09/30/24 14:15 Examination Gen: NAD Lungs: bilateral air entry Heart: RRR Abd: soft, nontender, normoactive bowels sounds Ext: + edema Neuro: A&O x4 laboratory and microbiology Laboratory Tests 09/30/24 04:25 Test 09/30/24 04:25 Range/Units Serum Glucose 150 H 74-106 mg/dL Problem List/Assessment/Plan Problem List/Assessment/Plan IMP: 1) Hemodynamically mediated acute kidney injury / prerenal etiology, possible cardiorenal syndrome 2) heart failure with reduced ejection fraction 3) chronic kidney disease stage IIIB 4) methamphetamine misuse REC: - Chemistry panel in am - Renal U/S - Strict I&Os - Agree with continued use of loop diuretic to achieve desired ECF fluid volume - Avoidance of nephrotoxins including intravenous contrast studies if able during time course of JATIN - We will continue to follow Plan discussed with: Patient STEVENDELISA MALDONADO Sep 30, 2024 14:54
--- NOTE | 2024-09-30 15:04 | DVHPN2 ---
Subjective Decreasing shortness of breath Reviewed: Care Plan, H&P, Labs, Medications, Previous Orders, Radiology, Other (Consultation) Changes from previous H/P or p: Changes Objective Vitals Vital Signs Date Time Temp Pulse Resp B/P (MAP) Pulse Ox O2 Delivery O2 Flow Rate FiO2 09/30/24 13:00 99.0 94 20 114/83 (93) 98 99.0 09/30/24 10:00 Nasal Cannula 3.0 09/30/24 10:00 32 Intake/Output Intake and Output 09/30/24 07:00 Intake Total 1325 ml Output Total 3525 ml Balance -2200 ml Intake Oral 800 ml Tube Feeding 525 ml Output Urine Total 3525 ml General Appearance: Alert, Oriented X3, Cooperative, No acute distress HEENT: Atraumatic Lungs: Other (Decreasing air entry bibasilarly with crackles) Cardiovascular: Regular rate, Normal S1, Normal S2 Abdomen: Normal bowel sounds, Soft, No tenderness Extremities: Other (Trace pitting edema) Neuro: Normal speech Psych/Mental Status: Mental status NL, Mood NL Medications Current Medications Medications Dose Ordered Sig/Wilder Route Start Time Stop Time Status Last Admin Dose Admin Sodium Chloride 10 ml Q8HR IV 09/28/24 22:00 09/30/24 13:58 10 ML Docusate Sodium 100 mg BIDPRN PRN PO 09/28/24 20:45 Acetaminophen 650 mg Q6HP PRN PO 09/28/24 20:45 09/29/24 22:45 650 MG Acetaminophen/ Hydrocodone Bitart 1 tab Q4HP PRN PO 09/28/24 20:45 09/30/24 13:58 1 TAB Ondansetron HCl 4 mg Q4HP PRN IV 09/28/24 20:45 Furosemide 40 mg BIDD IV 09/29/24 06:00 09/30/24 05:49 40 MG Aspirin 81 mg DAILY PO 09/29/24 10:00 09/30/24 09:14 81 MG Atorvastatin Calcium 10 mg HS PO 09/28/24 22:00 09/29/24 21:26 10 MG Carvedilol 6.25 mg BID PO 09/28/24 22:00 09/30/24 09:15 6.25 MG Empaglifozin 10 mg DAILY PO 09/29/24 10:00 09/30/24 09:15 10 MG Spironolactone 12.5 mg DAILY PO 09/29/24 10:00 09/30/24 09:14 12.5 MG Albuterol 2.5 mg Q6HPRN PRN NEB 09/29/24 21:15 09/29/24 22:03 2.5 MG Ipratropium [place] 0.5 mg Q6HPRN PRN NEB 09/29/24 21:15 09/29/24 22:03 0.5 MG Guaifenesin/ Codeine Phosphate 5 ml Q4HPRN PRN PO 09/30/24 14:15 Laboratory Results Laboratory Tests 09/30/24 04:25 Chemistry Test 09/30/24 04:25 Albumin 3.8 g/dL (3.2-4.8) Calcium Level 8.5 mg/dL (8.7-10.4) L Magnesium Level 2.4 mg/dL (1.6-2.6) Total Protein 6.5 g/dL (5.7-8.2) LFT Test 09/30/24 04:25 Alanine Aminotransferase (ALT) 35 U/L (7-40) Alkaline Phosphatase 207 U/L (46-116) H Aspartate Amino Transferase (AST) 37 U/L (13-40) Total Bilirubin 1.1 mg/dL (0.2-1.0) H Urinalysis Test 09/28/24 12:06 Urine Color Colorless (Yellow) Urine Clarity Clear (Clear) Urine pH 5.0 (5.0-9.0) Urine Specific [place] 1.009 (1.001-1.035) Urine Protein Negative (Negative) Urine Ketones Negative (Negative) Urine Blood Negative /uL (Negative) Urine Nitrite Negative (Negative) Urine Bilirubin Negative (Negative) Urine Urobilinogen Normal mg/dL (Negative) Urine Leukocyte Esterase Negative /uL (Negative) Urine RBC <1 /hpf (0 - 3) Urine Microscopic WBC < 1 /HPF (0-3) Urine Squamous Epithelial Cells None seen /hpf (<5) Urine Bacteria None seen /hpf (None Seen) Urine Glucose Normal mg/dL (Normal) Labs and/or images reviewed: Labs reviewed by me, Image(s) reviewed by me Assessment/Plan Assessment/Plan A 49-year-old male patient; with multiple comorbidities; who presented to the emergency department with shortness of breath. Acute hypoxic respiratory failure due to acute on chronic congestive systolic and diastolic heart failure Acute on chronic congestive systolic and diastolic heart failure JATIN; most likely vasomotor nephropathy Polysubstance use disorder Reviewed lab work and available imaging studies Continue IV diuresis Avoid nephrotoxic agents Counseled on methamphetamine and tobacco use cessation Nephrology is following Continue oxygen therapy as needed Continue monitoring Echocardiogram from September 04, 2024: LVEF severely reduced at 10-15%, global hypokinesis, moderate dilated LV Right ventriclemoderately dilated and moderately hypokinetic Right and left atrium moderately dilated Severe mitral regurgitation severe tricuspid regurgitation, moderate pulmonary hypertension IVC dilated Goals of care discussed with the patient for 20 minutes; full code Late Entry. This medical document was created using an electronic medical record system with computerized dictation system. Although this document has been carefully reviewed, there might still be some phonetic and typographical errors. These areas are purely typographical due to imperfections of the software programs, and do not reflect any compromise in the patient's medical care. Plan discussed with: Patient, Other (Nurse) My Orders Orders - LOKESH MOURA MD Procedure Category Date Status Time Guaifenesin-Codeine PHA 09/30/24 In Process Liquid (Robitussin/C 14:15 Date of Service: Sep 30, 2024 Billing Provider: LOKESH MOURA MD Common Visit Codes: [id number] INP/OBS CARE(HIGH) LOKESH MOURA MD Sep 30, 2024 15:04
--- NOTE | 2024-09-30 17:50 | DVH ---
INDICATION: JATIN TECHNIQUE: Multiple real-time sonographic images of the kidneys and bladder were obtained. COMPARISON: None FINDINGS: The right kidney measures 9.3 cm in length, which is normal in size. There is increased ech ogenicity of the right kidney. No hydronephrosis. The left kidney measures 9.3 cm in length, which is normal in size. There is increased echogenicity o f the left kidney. No hydronephrosis. No large intraluminal mass is seen in the bladder. The bladder volume measures volume 272 cc. IMPRESSION: Increased echogenicity of both kidneys consistent with medical renal disease. No hydronephrosis.
[2024-10-01] VITALS (14 sets, daily range): BP systolic 93–113; BP diastolic 59–73; PULSE 69–94; RESP 16–19; TEMP 97.5–98.5; O2SAT 91–100
[2024-10-01] MEDS: ALBUTEROL SULF 2.5 MG/0.5ML(0.5%) NEB SOLN NEB ONE (00:59)
[2024-10-01] MEDS: FUROSEMIDE 20 MG/2 ML VIAL IV ONE (01:31)
[2024-10-01 10:01] LABS: Hematocrit 43.1 % (41.0-53.0); Hemoglobin 14.1 g/dL (13.5-17.5); Mean Corpuscular Hemoglobin 28.4 pg (28.0-32.0); Mean Corpuscular Volume 86.7 fL (80.0-100.0)
[2024-10-01 10:27] LABS: Alanine Aminotransferase 31 U/L (7-40); Carbon Dioxide 30 mmol/L (20-31); Chloride 100 mmol/L (98-107); Magnesium 2.4 mg/dL (1.6-2.6); Potassium 3.9 mmol/L (3.5-5.1)
[2024-10-01 10:28] LABS: Albumin 3.9 g/dL (3.2-4.8); Anion Gap 9 (5-15); BUN/Creatinine Ratio 16.2 (10.0-20.0); Sodium 139 mmol/L (136-145); Total Protein 6.9 g/dL (5.7-8.2)
[2024-10-01 10:29] LABS: Alkaline Phosphatase 184 U/L (46-116); Bilirubin, Total 1.3 mg/dL (0.2-1.0); Blood Urea Nitrogen 29 mg/dL (9-23); Calcium 8.6 mg/dL (8.7-10.4); Glucose 160 mg/dL (74-106)
[2024-10-01 11:15] LABS: Total Cells Counted 100.0 (100)
--- NOTE | 2024-10-01 11:55 | DVHPN2 ---
Progress Note Date Seen: Oct 01, 2024 Medical Necessity Reason Pt with a Central, PICC or Fol: No Subjective Changes from previous H/P or p: No Changes Objective vital signs Vital Sign Date Time Temp Pulse Resp B/P (MAP) Pulse Ox O2 Delivery O2 Flow Rate FiO2 10/01/24 10:47 83 112/70 10/01/24 10:00 97 Nasal Cannula 3.0 10/01/24 10:00 32 10/01/24 09:00 98.2 16 98.2 Total Intake and Output 09/30/24 09/30/24 10/01/24 15:00 23:00 07:00 Intake Total 1300 ml 940 ml Output Total 1650 ml 1200 ml Balance -350 ml -260 ml medications Current Medications Medications Dose Ordered Sig/Wilder Route Start Time Stop Time Status Last Admin Dose Admin Sodium Chloride 10 ml Q8HR IV 09/28/24 22:00 10/01/24 06:28 10 ML Docusate Sodium 100 mg BIDPRN PRN PO 09/28/24 20:45 Acetaminophen 650 mg Q6HP PRN PO 09/28/24 20:45 09/29/24 22:45 650 MG Acetaminophen/ Hydrocodone Bitart 1 tab Q4HP PRN PO 09/28/24 20:45 10/01/24 10:50 1 TAB Ondansetron HCl 4 mg Q4HP PRN IV 09/28/24 20:45 Furosemide 40 mg BIDD IV 09/29/24 06:00 10/01/24 06:28 40 MG Aspirin 81 mg DAILY PO 09/29/24 10:00 10/01/24 10:46 81 MG Atorvastatin Calcium 10 mg HS PO 09/28/24 22:00 09/30/24 22:06 10 MG Carvedilol 6.25 mg BID PO 09/28/24 22:00 10/01/24 10:47 6.25 MG Empaglifozin 10 mg DAILY PO 09/29/24 10:00 10/01/24 10:46 10 MG Spironolactone 12.5 mg DAILY PO 09/29/24 10:00 10/01/24 10:46 12.5 MG Albuterol 2.5 mg Q6HPRN PRN NEB 09/29/24 21:15 09/29/24 22:03 2.5 MG Ipratropium [place] 0.5 mg Q6HPRN PRN NEB 09/29/24 21:15 10/01/24 00:59 0.5 MG Guaifenesin/ Codeine Phosphate 5 ml Q4HPRN PRN PO 09/30/24 14:15 Examination: GENERAL:Abnormal, LUNGS:Abnormal, CVS:Abnormal laboratory and microbiology Laboratory Tests 10/01/24 09:46 Test 10/01/24 09:46 Range/Units Serum Glucose 160 H 74-106 mg/dL Problem List/Assessment/Plan Problem List/Assessment/Plan 49-year-old male past medical history of methamphetamine abuse presents to the hospital with shortness of breath. Patient has dilated systolic cardiomyopathy with an EF less than 15% nephrology consulted for acute kidney injury Acute kidney injury in the setting of cardiorenal syndrome Severe dilated cardiomyopathy with ejection fraction less than 15% Chronic kidney disease stage 2, GFR was 65% in February of 2024 Methamphetamine abuse Continue with diuretic therapy Monitor urinary output Avoid hypotension Adhere to a low-salt diet Plan discussed with: Patient Total Time (mins): 27 NATA WHITE MD Oct 01, 2024 11:55
--- NOTE | 2024-10-01 15:37 | DVHPN2 ---
Subjective Patient continues to report having a cough. Denies having any fevers and chills. Reviewed: Care Plan, H&P, Labs, Medications, Previous Orders, Radiology, Other (Consultation) Changes from previous H/P or p: No Changes General: Per HPI Objective Vitals Vital Signs Date Time Temp Pulse Resp B/P (MAP) Pulse Ox O2 Delivery O2 Flow Rate FiO2 10/01/24 13:00 97.9 87 16 93/59 (70) 98 97.9 10/01/24 10:00 Nasal Cannula 3.0 10/01/24 10:00 32 Intake/Output Intake and Output 10/01/24 07:00 Intake Total 2240 ml Output Total 2850 ml Balance -610 ml Intake Oral 2240 ml Output Urine Total 2850 ml # Voids 4 General Appearance: Alert, Oriented X3, Cooperative, No acute distress HEENT: Atraumatic, PERRLA Lungs: Other (Decreasing air entry bibasilarly with crackles) Cardiovascular: Regular rate, Normal S1, Normal S2 Abdomen: Normal bowel sounds, Soft, No tenderness Extremities: Other (Trace pitting edema) Neuro: Normal speech Skin: Dry, Intact Psych/Mental Status: Mental status NL, Mood NL Medications Current Medications Medications Dose Ordered Sig/Wilder Route Start Time Stop Time Status Last Admin Dose Admin Sodium Chloride 10 ml Q8HR IV 09/28/24 22:00 10/01/24 06:28 10 ML Docusate Sodium 100 mg BIDPRN PRN PO 09/28/24 20:45 Acetaminophen 650 mg Q6HP PRN PO 09/28/24 20:45 09/29/24 22:45 650 MG Acetaminophen/ Hydrocodone Bitart 1 tab Q4HP PRN PO 09/28/24 20:45 10/01/24 10:50 1 TAB Ondansetron HCl 4 mg Q4HP PRN IV 09/28/24 20:45 Furosemide 40 mg BIDD IV 09/29/24 06:00 10/01/24 06:28 40 MG Aspirin 81 mg DAILY PO 09/29/24 10:00 10/01/24 10:46 81 MG Atorvastatin Calcium 10 mg HS PO 09/28/24 22:00 09/30/24 22:06 10 MG Carvedilol 6.25 mg BID PO 09/28/24 22:00 10/01/24 10:47 6.25 MG Empaglifozin 10 mg DAILY PO 09/29/24 10:00 10/01/24 10:46 10 MG Spironolactone 12.5 mg DAILY PO 09/29/24 10:00 10/01/24 10:46 12.5 MG Albuterol 2.5 mg Q6HPRN PRN NEB 09/29/24 21:15 09/29/24 22:03 2.5 MG Ipratropium [place] 0.5 mg Q6HPRN PRN NEB 09/29/24 21:15 10/01/24 00:59 0.5 MG Guaifenesin/ Codeine Phosphate 5 ml Q4HPRN PRN PO 09/30/24 14:15 Laboratory Results Laboratory Tests 10/01/24 09:46 Chemistry Test 10/01/24 09:46 Albumin 3.9 g/dL (3.2-4.8) Calcium Level 8.6 mg/dL (8.7-10.4) L Magnesium Level 2.4 mg/dL (1.6-2.6) Total Protein 6.9 g/dL (5.7-8.2) LFT Test 10/01/24 09:46 Alanine Aminotransferase (ALT) 31 U/L (7-40) Alkaline Phosphatase 184 U/L (46-116) H Aspartate Amino Transferase (AST) 32 U/L (13-40) Total Bilirubin 1.3 mg/dL (0.2-1.0) H Urinalysis Test 09/28/24 12:06 Urine Color Colorless (Yellow) Urine Clarity Clear (Clear) Urine pH 5.0 (5.0-9.0) Urine Specific [place] 1.009 (1.001-1.035) Urine Protein Negative (Negative) Urine Ketones Negative (Negative) Urine Blood Negative /uL (Negative) Urine Nitrite Negative (Negative) Urine Bilirubin Negative (Negative) Urine Urobilinogen Normal mg/dL (Negative) Urine Leukocyte Esterase Negative /uL (Negative) Urine RBC <1 /hpf (0 - 3) Urine Microscopic WBC < 1 /HPF (0-3) Urine Squamous Epithelial Cells None seen /hpf (<5) Urine Bacteria None seen /hpf (None Seen) Urine Glucose Normal mg/dL (Normal) Labs and/or images reviewed: Labs reviewed by me, Image(s) reviewed by me Assessment/Plan Assessment/Plan Impression: -acute on chronic hypoxic respiratory failure -acute on chronic systolic heart failure, [place] heart failure classification: four -methamphetamine use -CKD stage IIIB,? Cardiorenal failure Plan: -repeat chest x-ray -decrease carvedilol to 3.125 mg twice a day given marginal blood pressure -continue to hold Sudhir/Arb given renal failure -continue Jardiance, spironolactone, decrease Lasix to once a day -assess patient on room air, noted to be 94% -start antihistamine given nasal congestion. Recommend to provide patient is prn Robitussin with codeine as directed -Reassess for discharge in a.m. Total time spent with patient discussing and formulating plan of care: 35 minutes. This medical document was created using an electronic medical record system with [employer] dictation system. Although this document has been carefully reviewed, there may still be some phonetic and typographical errors. These areas are purely typographical due to imperfections of the software programs, and do not reflect any compromise in the patient's medical care. Plan discussed with: Patient, Other (RN) My Orders Orders - VAUGHN FISHER NP Procedure Category Date Status Time Carvedilol Tablet PHA 10/01/24 Logged (Coreg Tablet) 22:00 Furosemide Injection PHA 10/02/24 Logged (Lasix Injection) 10:00 Chest Xray 1 View XY 10/01/24 Transmitted 15:30 Loratadine Tablet PHA 10/01/24 Transmitted (Claritin Tablet) 15:45 Date of Service: Oct 01, 2024 Billing Provider: VAUGHN FISHER NP Common Visit Codes: 33160-[id number] INP/OBS CARE(HIGH) VAUGHN FISHER NP Oct 01, 2024 15:37
[2024-10-01] MEDS: LORATADINE 10 MG TAB PO SCH (17:27)
--- NOTE | 2024-10-01 19:22 | DVH ---
CHEST RADIOGRAPH Indication: chf Technique: Single frontal view of the chest was obtained Comparison: XY CHEST PORTABLE on DOS: 09/29/24, XY CHEST PORTABLE on DOS: 09/28/24, XY CHEST TWO VIEWS RO UTINE on DOS: 09/03/24 FINDINGS: Lines and Tubes: None Lungs: No focal consolidation. Pleura: No effusion. No pneumothorax. Cardiomediastinal contours: Unremarkable Bones: No acute osseous abnormality. IMPRESSION: 1. No acute cardiopulmonary disease. 2. No significant change from 09/29/2024, or 09/28/2024.
[2024-10-01] MEDS: CARVEDILOL 3.125 MG TAB PO SCH (21:32)
[2024-10-02] VITALS (8 sets, daily range): BP systolic 95–147; BP diastolic 65–78; PULSE 73–90; RESP 16–18; TEMP 36.9; O2SAT 92–99
[2024-10-02 06:30] LABS: Hematocrit 43.2 % (41.0-53.0); Hemoglobin 14.3 g/dL (13.5-17.5); Mean Corpuscular Hemoglobin 28.8 pg (28.0-32.0); Mean Corpuscular Volume 86.8 fL (80.0-100.0)
[2024-10-02] MEDS: guaiFENesin-CODEINE Liq 5 ML UD PO PRN (06:52)
[2024-10-02 06:53] LABS: Alanine Aminotransferase 29 U/L (7-40); Albumin 3.9 g/dL (3.2-4.8); Anion Gap 8 (5-15); BUN/Creatinine Ratio 16.9 (10.0-20.0); Bilirubin, Total 1.0 mg/dL (0.2-1.0); Calcium 8.9 mg/dL (8.7-10.4); Carbon Dioxide 30 mmol/L (20-31); Chloride 101 mmol/L (98-107); Glucose 86 mg/dL (74-106); Potassium 4.4 mmol/L (3.5-5.1); Sodium 139 mmol/L (136-145); Total Protein 6.9 g/dL (5.7-8.2)
[2024-10-02 06:55] LABS: Alkaline Phosphatase 198 U/L (46-116); Blood Urea Nitrogen 32 mg/dL (9-23); Magnesium 2.6 mg/dL (1.6-2.6)
[2024-10-02 09:40] LABS: Total Cells Counted 100.0 (100)
--- NOTE | 2024-10-02 10:29 | DVHPN2 ---
Progress Note Date Seen: Oct 02, 2024 Medical Necessity Reason Pt with a Central, PICC or Fol: No Subjective Changes from previous H/P or p: No Changes Objective vital signs Vital Sign Date Time Temp Pulse Resp B/P (MAP) Pulse Ox O2 Delivery O2 Flow Rate FiO2 10/02/24 08:47 98.3 86 18 97/71 (80) 99 98.3 10/02/24 08:00 Nasal Cannula* 3 32 Total Intake and Output 10/01/24 10/01/24 10/02/24 15:00 23:00 07:00 Intake Total 950 ml 850 ml Output Total 1905 ml 900 ml Balance -955 ml -50 ml medications Current Medications Medications Dose Ordered Sig/Wilder Route Start Time Stop Time Status Last Admin Dose Admin Sodium Chloride 10 ml Q8HR IV 09/28/24 22:00 10/02/24 05:21 10 ML Docusate Sodium 100 mg BIDPRN PRN PO 09/28/24 20:45 Acetaminophen 650 mg Q6HP PRN PO 09/28/24 20:45 09/29/24 22:45 650 MG Acetaminophen/ Hydrocodone Bitart 1 tab Q4HP PRN PO 09/28/24 20:45 10/01/24 10:50 1 TAB Ondansetron HCl 4 mg Q4HP PRN IV 09/28/24 20:45 Aspirin 81 mg DAILY PO 09/29/24 10:00 10/02/24 09:56 81 MG Atorvastatin Calcium 10 mg HS PO 09/28/24 22:00 10/01/24 21:32 10 MG Empaglifozin 10 mg DAILY PO 09/29/24 10:00 10/02/24 09:56 10 MG Spironolactone 12.5 mg DAILY PO 09/29/24 10:00 10/02/24 09:56 12.5 MG Albuterol 2.5 mg Q6HPRN PRN NEB 09/29/24 21:15 10/01/24 21:12 2.5 MG Ipratropium [place] 0.5 mg Q6HPRN PRN NEB 09/29/24 21:15 10/01/24 21:12 0.5 MG Guaifenesin/ Codeine Phosphate 5 ml Q4HPRN PRN PO 09/30/24 14:15 10/02/24 06:52 5 ML Carvedilol 3.125 mg BID PO 10/01/24 22:00 10/01/24 21:32 3.125 MG Furosemide 40 mg DAILY IV 10/02/24 10:00 Loratadine 10 mg DAILY PO 10/01/24 15:45 10/02/24 09:56 10 MG Examination: GENERAL:Normal laboratory and microbiology Laboratory Tests 10/02/24 05:52 Test 10/02/24 05:52 Range/Units Serum Glucose 86 74-106 mg/dL Problem List/Assessment/Plan Problem List/Assessment/Plan 49-year-old male past medical history of methamphetamine abuse presents to the hospital with shortness of breath. Patient has dilated systolic cardiomyopathy with an EF less than 15% nephrology consulted for acute kidney injury Acute kidney injury in the setting of cardiorenal syndrome Severe dilated cardiomyopathy with ejection fraction less than 15% Chronic kidney disease stage 2, GFR was 65% in February of 2024 Methamphetamine abuse Continue with diuretic therapy dose reductions can convert diuretics to po Monitor urinary output Avoid hypotension Adhere to a low-salt diet Plan discussed with: Patient Total Time (mins): 23 NATA WHITE MD Oct 02, 2024 10:29
[2024-10-02] MEDS: FUROSEMIDE 40 MG/4 ML VIAL IV SCH (11:11)
--- NOTE | 2024-10-02 13:30 | DVHDS2 ---
Discharge Summary Date of Admission Sep 28, 2024 at 20:40 Date of Discharge: Oct 02, 2024 Admitting Diagnosis CHF exacerbation Labs/Diagnostic Data: Laboratory Results Test 10/02/24 05:52 09/30/24 04:25 09/28/24 12:06 09/28/24 11:28 White Blood Count 8.1 10^3/uL (4.4-10.8) Red Blood Count 4.97 10^6/uL (4.5-5.90) Hemoglobin 14.3 g/dL (13.5-17.5) Hematocrit 43.2 % (41.0-53.0) Mean Corpuscular Volume 86.8 fL (80.0-100.0) Mean Corpuscular Hemoglobin 28.8 pg (28.0-32.0) Mean Corpuscular Hemoglobin Concent 33.2 g/dL (32.0-36.0) Red Cell Distribution Width 19.6 % (11.8-14.3) Platelet Count 200 10^3/uL (140-450) Mean Platelet Volume 7.4 fL (6.9-10.8) Neutrophils (%) (Auto) % (37.0-80.0) Lymphocytes (%) (Auto) % (10.0-50.0) Monocytes (%) (Auto) % (0.0-12.0) Basophils (%) (Auto) % (0.0-2.0) Neutrophils # (Auto) 10 ^3/uL (1.6-8.6) Lymphocytes # (Auto) 10 ^3/uL (0.4-5.4) Monocytes # (Auto) 10 ^3/uL (0-1.3) Differential Total Cells Counted 100.0 (100) Neutrophils % (Manual) 66 (37.0-80.0) Band Neutrophils % (Manual) 0 Lymphocytes % (Manual) 19 (10.0-50.0) Monocytes % (Manual) 13 (0-12) Eosinophils % (Manual) 2 (0-7) Basophils % (Manual) 0 (0.0-2.0) Metamyelocytes % (manual) 0 Myelocytes % (Manual) 0 Promyelocytes % (Manual) 0 Blast Cells % (Manual) 0 Reactive Lymphocytes 0 Platelet Estimate Adequate Sodium Level 139 mmol/L (136-145) Potassium Level 4.4 mmol/L (3.5-5.1) Chloride Level 101 mmol/L (98-107) Carbon Dioxide Level 30 mmol/L (20-31) Anion Gap 8 (5-15) Blood Urea Nitrogen 32 mg/dL (9-23) Creatinine 1.89 mg/dL (0.700-1.30) Glomerular Filtration Rate Calc 43 mL/min (>90) BUN/Creatinine Ratio 16.9 (10.0-20.0) Serum Glucose 86 mg/dL (74-106) Calcium Level 8.9 mg/dL (8.7-10.4) Magnesium Level 2.6 mg/dL (1.6-2.6) Total Bilirubin 1.0 mg/dL (0.2-1.0) Aspartate Amino Transferase (AST) 32 U/L (13-40) Alanine Aminotransferase (ALT) 29 U/L (7-40) Alkaline Phosphatase 198 U/L (46-116) Total Protein 6.9 g/dL (5.7-8.2) Albumin 3.9 g/dL (3.2-4.8) Anisocytosis (manual) Slight Urine Color Colorless (Yellow) Urine Clarity Clear (Clear) Urine pH 5.0 (5.0-9.0) Urine Specific [place] 1.009 (1.001-1.035) Urine Protein Negative (Negative) Urine Ketones Negative (Negative) Urine Blood Negative /uL (Negative) Urine Nitrite Negative (Negative) Urine Bilirubin Negative (Negative) Urine Urobilinogen Normal mg/dL (Negative) Urine Leukocyte Esterase Negative /uL (Negative) Urine RBC <1 /hpf (0 - 3) Urine Microscopic WBC < 1 /HPF (0-3) Urine Squamous Epithelial Cells None seen /hpf (<5) Urine Bacteria None seen /hpf (None Seen) Urine Glucose Normal mg/dL (Normal) Urine Opiates Screen Neg (NEGATIVE) Urine Fentanyl Screen Neg (NEGATIVE) Urine Barbiturates Screen Neg (NEGATIVE) Urine Phencyclidine Screen Neg (NEGATIVE) Urine Amphetamines Screen Pos (NEGATIVE) Urine Benzodiazepines Screen Neg (NEGATIVE) Urine Cocaine Screen Neg (NEGATIVE) Urine Cannabinoids Screen Neg (NEGATIVE) Influenza Type A Antigen Negative (Negative) Influenza Type B Antigen Negative (Negative) SARS-CoV-2 Antigen (Rapid) Negative (NEGATIVE) Troponin I High Sensitivity 42 ng/L (</=54) B-Type Natriuretic Peptide 1876.48 pg/mL (0-100) Other Laboratory Tests 10/02/24 05:52 Brief Hx & Hospital Course: History of Present Illness This is a 49 years old male with past medical history of CHF, bronchial asthma, CKD stage 3, methamphetamine abuse presented to the ED with a chief complaint of shortness of breath, cough, fatigue, chills since yesterday prior to this visit. The patient also complaining of bilateral leg swelling for last 1 weeks despite taking his water pill. He is noncompliant with sodium restricted diet and last methamphetamine use was 2 days ago. He was admitted in the hospital 2 weeks ago with exacerbation of CHF and his EF is only 10-15%. Denies chest pain, fever, dizziness, blurred vision, abdominal pain, nausea, vomiting or any change in bowel and bladder habit. Course of hospitalization: Patient was started on guideline directed therapy with beta-vanessa therapy, Jardiance, spironolactone, as well as IV Lasix. Nephrology consultation was obtained. Patient had repeat chest x-ray which revealed improvement of patient's pulmonary vascular congestion. Patient has been weaned off of oxygen is now able to ambulate around the nursing unit without any signs of dyspnea. Lifestyle modification education was given to the patient regarding the need to stop using illicit drugs. Patient denies using drugs at this time. He will follow up with his PCP Dr. Koehler in 1-2 weeks. Medication reconciliation was performed, for which the patient will continue with beta-vanessa therapy, spironolactone, Jardiance, as well as holding off on any Sudhir or Arb given renal failure. Patient was agreeable with discharge plan. All questions answered. Physical examination General: Alert and Oriented x3. No acute distress. Well-nourished. Eyes: EOMI. Anicteric. HENT: Moist mucous membranes. Lungs: Clear to auscultation bilaterally. No accessory muscle use. Cardiovascular: Regular rate and rhythm. No murmur. No JVD. Abdomen: Soft, non-tender and non-distended. No palpable masses. Extremities: No edema. Non-tender. Skin: No rashes or lesions. Warm. Neurologic: No focal neurological deficits. CN II-XII grossly intact, but not individually tested. Psychiatric: Cooperative. Appropriate mood and affect. Total time spent with patient discussing and formulating plan of care: 35 minutes. This medical document was created using an electronic medical record system with [employer] dictation system. Although this document has been carefully reviewed, there may still be some phonetic and typographical errors. These areas are purely typographical due to imperfections of the software programs, and do not reflect any compromise in the patient's medical care. Consults/Reason for consult Nephrology: Renal failure Condition at Discharge: Poor Final Diagnosis/Problems List ACUTE ON CHRONIC SYSTOLIC HEART FAILURE Secondary diagnosis: -acute on chronic hypoxic respiratory failure -acute on chronic systolic heart failure, [place] heart failure classification: four -methamphetamine use -CKD stage IIIB,? Cardiorenal failure -medication noncompliance Discharge Disposition: Home Discharge Instruct/Medications Diet: Cardiac 2g Na,low cholest Activity: No Restrictions, As Tolerated Follow Up/Referral: Dr. Koehler in 1 week Medications: Continue all home medications for CHF Scheduled Aspirin (Aspirin Low Dose), 81 MG PO DAILY Atorvastatin Calcium (Atorvastatin Calcium), 10 MG PO HS Carvedilol (Coreg), 6.25 MG OR BID Empagliflozin (Jardiance), 10 MG PO DAILY Furosemide (Furosemide), 40 MG PO BID Levofloxacin Hemihydrate (Levofloxacin), 1 TAB PO DAILY Spironolactone (Aldactone), 12.5 MG PO DAILY Scheduled PRN Acetaminophen (Acetaminophen), 650 MG PO Q6HP PRN 36 Discharge Statement: "Patient was advised to return to the ER or call 911 if any headaches, dizziness, shortness of breath, chest pain, abdominal pain, bleeding, fevers, or worsening of medical condition. Patient was counseled about treatment plan, medications, possible side effects, patientverbalized understanding. All questions were answered to the best of my ability. This discharge took greater then 30 minutes in planning, reviewing documentation, counseling the patient, and discussing with other team members." ASSESSMENT ASSESSMENT Assessment ACUTE ON CHRONIC SYSTOLIC HEART FAILURE Date of Service: Oct 02, 2024 Billing Provider: VAUGHN FISHER NP Common Visit Codes: 31233-ZUI/OBS DISCH DAY >30min VAUGHN FISHER NP Oct 02, 2024 13:30
== END 2024-10-02 14:44 | disposition home or self-care (01) | DRG 133 ==
LOC: ER 10:32 → OVERFLOW 20:40 → EAST 23:20
PROVIDERS: ADMIT Nurse Practitioner Acute Care; ATTEND Nurse Practitioner Acute Care
DX: J96.21 Acute and chronic respiratory failure with hypoxia (principal); N17.0 Acute kidney failure with tubular necrosis; I50.23 Acute on chronic systolic (congestive) heart failure; I27.20 Pulmonary hypertension, unspecified; I42.0 Dilated cardiomyopathy; I13.0 Hypertensive heart and chronic kidney disease with heart failure and stage 1 through stage 4 chronic kidney disease, or unspecified chronic kidney disease; N18.32 Chronic kidney disease, stage 3b; F15.10 Other stimulant abuse, uncomplicated; J45.909 Unspecified asthma, uncomplicated; I08.1 Rheumatic disorders of both mitral and tricuspid valves; F17.210 Nicotine dependence, cigarettes, uncomplicated; E78.5 Hyperlipidemia, unspecified; Z91.199 Patient's noncompliance with other medical treatment and regimen due to unspecified reason; Z82.5 Family history of asthma and other chronic lower respiratory diseases; Z82.49 Family history of ischemic heart disease and other diseases of the circulatory system; Z82.3 Family history of stroke
CPT/HCPCS: 36415; 71045; 76775; 80048; 80053; 80307; 81001; 83735; 83880; 84484; 85007; 85027; 87426; 87804; 94640; 96374; G0378